=== PATIENT | male | born 1960 | race Caucasian/White ===

== ENCOUNTER 2018-08-05 21:45 | Emergency (ER) | payer BC, SELFPAY ==
[2018-08-05 21:45] VITALS: BP 145/83; PULSE 82; RESP 20; TEMP 36.7; O2SAT 95; BMI 28.6
--- NOTE | 2018-08-05 22:04 | RAD_ITS ---
STUDY: X-RAY - LEFT WRIST REASON FOR EXAM: Male, 57 years old. Fall. Difficulty moving fingers. TECHNIQUE: 3 view(s) of the wrist were obtained. COMPARISON: None. FINDINGS: Healed fracture of the distal radius status post ORIF. There is degenerative arthrosis of the radiocarpal articulation. There is degenerative arthrosis of the distal radioulnar articulation. There is focal density on the lateral aspect suggesting nondisplaced fracture of the triquetrum of uncertain age. Normal carpal articulations. There is mild degenerative arthrosis of the carpometacarpal articulation of the thumb. Normal second through fifth carpometacarpal articulations. Normal visualized metacarpal bones. The soft tissue structures are unremarkable. RAD/Wrist min 3 Views IMPRESSION: Healed distal radius fracture. Fracture of the triquetrum of uncertain age. Electronically Signed: Garcia Verde MD at 23:01 EDT , Service support ,
[2018-08-05] MEDS: HYDROcodone Bitartrate/Apap 5/325 Tablet PO (22:51)
--- NOTE | 2018-08-05 23:28 | ED.DCSUM_ITS ---
- ER Visit Summary Date of Service: 08/05/18 Chief Complaint: Wrist pain History of Present Illness: The patient is a 57 M with left wrist pain after mechanical fall earlier today. He fell on his outstretched hand. He complains of diffuse pain to his left wrist, more so at the base of his thumb. Worse with movement. He noted some swelling. He has a history of a distal radius fracture with plates and screws placed remotely. No other injuries or complaints. No numbness. Physical Examination: Patient is afebrile and vital signs are unremarkable. Head and neck are atraumatic. Left wrist is mildly and diffusely swollen. Skin is intact and normal in color. He has diffuse pain, but more so in the snuffbox region. Severe pain with light touch. Range of motion intact. Capillary refill intact. Good pulses. Compartments soft. Test Results: X-rays show postoperative changes and a triquetral fracture of an uncertain age. Emergency Department Course and Treatment: I reviewed the patient's x-rays. I do not believe that triquetral fracture is acute. He does not have significant pain in this area and his mechanism is not consistent with a triquetral fracture. I am concerned for a possible scaphoid fracture. He was placed in a thumb spica splint. Given a short course of pain medicine. Rest, ice, elevate. Follow-up with orthopedics. Treatment Plan: As above Disposition: Discharged Impression: 1. Left wrist pain This note was generated with [employer] dictation software. It may contain incorrect words, spelling, and punctuation that were not noted in review of the chart prior to signing ED Disposition - Plan for ED Patient: Chief Complaint: Upper Extremity Injury Referrals: Yury Lowe DO [Primary Care Provider] -
--- NOTE | 2018-08-05 23:28 | ED.DEP ---
ED Disposition - Plan for ED Patient: Chief Complaint: Upper Extremity Injury Instructions: ED Fx Wrist Navicular Poss Prescriptions: Hydrocodone Bitart/Apap 5-325 [[place] 5MG-325MG] 1 tab PO Q6H PRN PRN 2 Days #8 tab PRN Reason: Pain Referrals: Lucian Bose DO [STAFF PHYSICIAN] -
[2018-08-06] MEDS: HYDROcodone Bitartrate/Apap 5/325 Tablet PO (00:01)
[2018-08-06 00:02] VITALS: BP 145/83; RESP 18
== END 2018-08-06 00:04 | disposition home or self-care (01) ==
LOC: ED 22:24
PROVIDERS: Emergency Provider Emergency Medicine; Family Provider Student in an Organized Health Care Education/Training Program; PCP Student in an Organized Health Care Education/Training Program
DX: M25.532 Pain in left wrist (principal); Z87.891 Personal history of nicotine dependence
CPT/HCPCS: 73110; 99283

== ENCOUNTER 2023-09-07 12:29 | Observation (INO) | payer OTHER, SELFPAY ==
[2023-09-07] VITALS (13 sets, daily range): BP systolic 123–149; BP diastolic 81–98; PULSE 77–100; RESP 16–22; TEMP 36.7–36.9; O2SAT 88–99; BMI 30.2; BMI 29.1
--- NOTE | 2023-09-07 12:43 | RAD_ITS ---
INDICATION: Shortness of Breath EXAMINATION/TECHNIQUE: X-RAY - XR Chest 2 Views COMPARISON: Prior study dated: Right shoulder dated February 17, 2017 FINDINGS: LINES/DEVICES: None. LUNGS: No consolidation, edema or effusion. No pneumothorax. MEDIASTINUM AND CARDIOVASCULAR STRUCTURES: Cardiac silhouette not enlarged. Central airways and mediastinal contour are unremarkable. BONES AND SOFT TISSUES: Unremarkable. RAD/Chest PA and Lateral IMPRESSION: No radiographic evidence of acute cardiopulmonary disease. Electronically Signed: Jimena Dejesus MD at 13:40 EST ,
--- NOTE | 2023-09-07 12:43 | EKG12_ITS ---
Test Reason : SOB Blood Pressure : / mmHG Vent. Rate : 080 BPM Atrial Rate : 080 BPM P-R Int : 190 ms QRS Dur : 094 ms QT Int : 366 ms P-R-T Axes : 042 -15 019 degrees QTc Int : 422 ms Normal sinus rhythm Normal ECG Confirmed by SENAIT BECERRA MD ([id number]), order editor MARTY ADEN ([id number]) on 09/08/2023 10:56:33 AM Referred By: Confirmed By:SENAIT BECERRA MD
--- NOTE | 2023-09-07 12:44 | ED.VIS.DYS ---
HPI History of Present Illness Chief Complaint: Shortness of Breath Narrative Narrative: 63-year-old male, past medical history of COPD, presents with upper respiratory infection type symptoms that he feels has moved down into his chest. He states he has been sick for the last week with cough and runny nose. His fever is resolved. He now has a cough that is occasionally productive of sputum. He does not wear oxygen at home. However, he does use his 's albuterol nebulizer. He has been short of breath over the last few days and feels like his symptoms got worse on Friday, 2 days ago. He denies any chest pain or swelling of his legs. Has had a hard time breathing. He states he saw collections director wants in the past and usually sees his primary care physician who treats his COPD, but has not seen them recently. Additionally, he states he quit smoking 6 years ago. [facility] Home Medications lisinopril 10 mg tablet 10 mg PO DAILY 03/15/14 [History Last Taken Unknown] aspirin 81 mg tablet,delayed release (Adult Aspirin Regimen) 81 mg PO DAILY 09/07/23 [History Last Taken Unknown] atorvastatin 80 mg tablet 80 mg PO DAILY 09/07/23 [History Last Taken Unknown] tamsulosin 0.4 mg capsule 0.4 mg PO DAILY 09/07/23 [History Last Taken Unknown] Allergy/AdvReac Type Severity Reaction Status Date / Time No Known Allergies Allergy Verified 09/07/23 12:30 Social History Smoking Status: Former smoker ROS ROS ED ROS Narrative Constitutional: No fever, no chills. HEENT: No sore throat. No neck pain. No loss of vision. Rhinorrhea nasal congestion-resolving. Cardiovascular: No chest pain. No palpitations. No pedal edema. Respiratory: Positive cough, increasing shortness of breath, worse over the last few days, feels it into the chest. Abdominal: No abdominal pain. No nausea. No vomiting. Genitourinary: No dysuria. No hematuria. Musculoskeletal: No myalgias. No arthralgias. Neurologic: No headaches. No dizziness. No lightheadedness. Skin: No rash. No change in color. Psychiatric: No depression. No anxiety. EXAM Physical Exam Narrative Exam Narrative: Afebrile. Vital signs noted. HEENT: Normocephalic. Atraumatic. PERRL, EOMI. Neck soft and supple. No point tenderness or step off. Cardiovascular: Regular rate and rhythm. No murmurs, rubs, or gallops appreciated. Respiratory: No tachypnea. Lungs clear to auscultation bilaterally. Diminished breath sounds bilateral bases. Gastrointestinal: Abdomen soft, nontender, with normoactive bowel sounds. No rebound or guarding. Neurological: Awake. Alert. Nonfocal, nonlateralizing. Skin: No rash. Normal color. No pallor. Musculoskeletal: No pedal edema. Full range of motion extremities. Const Vital Signs: 09/07/23 12:31 09/07/23 13:02 09/07/23 13:03 Temperature 98.0 F Temperature Source Temporal Pulse Rate 86 77 Respiratory Rate 16 17 Respiratory Effort Respiratory Depth Respiratory Pattern Normal Blood Pressure 149/98 H Blood Pressure Mean 115 Pulse Ox 88 93 Oxygen Delivery Method Room Air Nasal Cannula Oxygen Flow Rate (L/min) 2 09/07/23 13:10 09/07/23 13:10 09/07/23 13:13 Temperature 98.0 F Temperature Source Temporal Pulse Rate 85 85 Respiratory Rate 22 H 22 H Respiratory Effort Short of Breath Accessory Muscle Use Pursed Lip Respiratory Depth Deep Respiratory Pattern Tachypnea Blood Pressure 146/81 H Blood Pressure Mean 102 Pulse Ox 91 91 Oxygen Delivery Method Nasal Cannula Nasal Cannula Nasal Cannula Oxygen Flow Rate (L/min) 2 2 2 09/07/23 14:00 09/07/23 14:54 Temperature Temperature Source Pulse Rate 82 78 Respiratory Rate 22 H 22 H Respiratory Effort Respiratory Depth Respiratory Pattern Blood Pressure 123/82 H 149/91 H Blood Pressure Mean 95 110 Pulse Ox 90 91 Oxygen Delivery Method Nasal Cannula Nasal Cannula Oxygen Flow Rate (L/min) 3 3 MDM MDM MDM Narrative Medical decision making narrative: HisUpon arrival, patient was 88% on room air. He does not wear oxygen at home. In the differential diagnosis is COPD exacerbation versus pneumonia versus pneumothorax. Lower on the differential is pulmonary embolism. However he is PERC negative. He will be swabbed for COVID and influenza and laboratory work obtained in the form of CBC and BMP. I do feel chest x-ray is indicated. He will be given a DuoNeb aerosolized treatment and Solu-Medrol 125 mg intravenously. EKG was obtained and interpreted by myself independently as normal sinus rhythm at 80 bpm without ectopy or acute ST changes. No STEMI. Laboratory work and he has slightly elevated white count of 12.8 which I think is nonspecific, hemoglobin normal 14.4, hematocrit 42.2, sodium is slightly low at 132 which I think is nonspecific, chloride normal at 102, BUN normal at 12 with creatinine 0.96. Glucose appropriately elevated at 103 with a normal anion gap of 5. Chest x-ray 1 view interpreted by myself independently shows no evidence of an acute process, no pneumothorax or consolidation. I do not feel antibiotics are indicated. I reviewed the radiology report which confirms my independent interpretation. Upon repeat examination, still has a pulse ox of 92% on 2 L nasal cannula. I turned off his oxygen momentarily and he had a dip down to 89% on room air. Given his hypoxia and COPD exacerbation, I do feel that he requires admission at this time. Patient states that he has not seen a collections director in quite some time, and that was years ago. He had pulmonary function test that were normal years ago. 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 I do feel that given his worsening COPD exacerbation that he should be admitted for further work-up. I discussed patient with the hospitalist, Dr. Mejia Molina. He would like him assigned to observation in the PCU. Patient is in stable condition. History & Record Review Discussion w/independent historian: Patient and Family Additional record(s) reviewed:: Prior ED visit and Prior labs Lab Data Attestation: I reviewed the patient's lab results. Labs: Laboratory Results - last 24 hr 09/07/23 13:18 WBC 12.8 H RBC 4.78 Hgb 14.4 Hct 42.2 MCV 88.3 MCH 30.1 MCHC 34.1 RDW Std Deviation 38.2 RDW Coeff of [place] 11.8 Plt Count 321 MPV 9.8 Immature Gran % (Auto) 0.500 Neut % (Auto) 72.0 H Lymph % (Auto) 14.3 L [place] % (Auto) 9.7 Eos % (Auto) 3.1 Baso % (Auto) 0.4 Absolute Neuts (auto) 9.2 H Absolute Lymphs (auto) 1.84 Nucleated RBC % 0 Sodium 132 L Potassium 3.9 Chloride 102 Carbon Dioxide 25.0 Anion Gap 5 BUN 12 Creatinine 0.96 Estim Creat Clear Calc 89.01 Est GFR (MDRD) Af Amer 102 Est GFR (MDRD) Non-Af 84 BUN/Creatinine Ratio 12.5 Glucose 103 Calcium 9.2 Radiography Diagnostic Testing: Clinical Impression(s) from Imaging Studies Chest X-Ray 09/07/23 12:43 IMPRESSION: No radiographic evidence of acute cardiopulmonary disease. Electronically Signed: Jimena Dejesus MD at 13:40 EST , Discharge Plan Dx/Rx/DC Orders Clinical Impression: Hypoxia, COPD exacerbation Disposition Disposition: Acute Care Hospital [facility]
[2023-09-07] MEDS: Ipratropium/Albuterol Sulfate 3 ML AMPUL.NEB INHALATION ×2 (13:00→18:58)
[2023-09-07] MEDS: MethylPREDNISolone 125 MG/2 ML Vial IV (13:09)
[2023-09-07 13:31] LABS: Absolute Lymphocyte Count 1.84 X10^3/uL (0.83-4.51); Absolute Neutrophil Count 9.2 X10^3/uL (2.0-7.7); Basophil# 0.05 X10^3/uL; Basophil% 0.4 % (0-1); Eosinophils% 3.1 % (0-5); Hematocrit 42.2 % (40-54); Hemoglobin 14.4 g/dL (13.0-16.5); Lymphocyte # 1.84 X10^3/ul (0.83-4.51); Lymphocyte % 14.3 % (19-41); Mean Corp Hgb Conc 34.1 g/dL (32-36); Mean Corpuscular Hgb 30.1 pg (27.0-32.0); Mean Corpuscular Volume 88.3 fL (80-94); Mean Platelet Vol. 9.8 fl (6.2-12.0); Monocyte# 1.24 X10^3/uL; Monocyte% 9.7 % (0-10); NRBC Flagged by Analyzer 0 % (0-5); Neutrophil # 9.24 X10^3/uL (2.7-7.7); Platelet Count 321 K/mm3 (150-450); RBC Distribution Width CV 11.8 % (11.6-14.6); RBC Distribution Width SD 38.2 fl (35.1-43.9); Red Blood Count 4.78 M/mm3 (4.6-6.2); White Blood Count 12.8 K/mm3 (4.4-11.0)
[2023-09-07 13:48] LABS: Anion Gap 5 (5-15); BUN 12 mg/dL (7-18); BUN/Creat Ratio 12.5 RATIO (10-20); Calcium,Total 9.2 mg/dL (8.5-10.1); Chloride 102 mmol/L (98-107); Creatinine, Serum 0.96 mg/dL (0.70-1.30); EST Glomerular Filtration Rate 84 mL/min (>60); Est Glom Filt Rate - Afr Amer 102 mL/min (>60); Estimated Creatinine Clearance 89.01 ml/min; Glucose 103 mg/dL (74-106); Potassium 3.9 mmol/L (3.5-5.1); Sodium Level 132 mmol/L (136-145)
--- NOTE | 2023-09-07 14:49 | PCM.HP.STD ---
HPI - General General Date of Admission: 09/07/23 Date of Service: 09/07/23 Chief Complaint: URI symptoms, worsening shortness of breath HPI Narrative GUSTAVO HILLAMN, is a 63 M who presented to [facility] ED on 09/07/2023 with URI symptoms and worsening shortness of breath. Patient seen at bedside in the ED, present. Patient was sitting at the edge of the bed, conversing normally, no acute distress. Patient was on 2 L nasal cannula with oxygen saturations in the low to mid 90s during my interview. He did not have any increased work of breathing noted. Patient states that his symptoms are mildly improved after receiving a breathing treatment in the ED. Patient states his URI symptoms started about 1 week ago, then moved to his chest about 2 days ago. He has had a fairly significant cough with greenish sputum production. Noticed that he was becoming more short of breath with exertion for last few days and came in for further evaluation. Patient reports having history of COPD secondary to his previous smoking history. Quit smoking about 6 years ago. States he had PFTs done around the time he quit smoking that showed that he had COPD. He uses an albuterol inhaler as needed at home, typically does not use this very often. No previous history of COPD exacerbations. Patient states he used the albuterol inhaler up to 2-3 times daily over the past few days with only mild relief of symptoms. Patient otherwise denies any fevers or chills, chest pain, abdominal pain or discomfort. No other acute concerns at this time. [facility] Home Medications lisinopril 10 mg tablet 10 mg PO DAILY 03/15/14 [History Last Taken Unknown] aspirin 81 mg tablet,delayed release (Adult Aspirin Regimen) 81 mg PO DAILY 09/07/23 [History Last Taken Unknown] atorvastatin 80 mg tablet 80 mg PO DAILY 09/07/23 [History Last Taken Unknown] tamsulosin 0.4 mg capsule 0.4 mg PO DAILY 09/07/23 [History Last Taken Unknown] Allergy/AdvReac Type Severity Reaction Status Date / Time No Known Allergies Allergy Verified 09/07/23 12:30 Social History Smoking Status: Former smoker ROS Constitutional Constitutional: Denies change in weight, chills, fatigue, fever(s) or weakness Eyes Eyes: Denies change in vision Cardiovascular Cardiovascular: Reports dyspnea on exertion; Denies chest pain, edema, lightheadedness, palpitations or rapid heart rate Respiratory/Chest Respiratory/Chest: Reports productive cough and shortness of breath with exertion; Denies shortness of breath at rest or wheezing Gastrointestinal Gastrointestinal: Denies abdominal pain, constipation, diarrhea, nausea or vomiting Genitourinary Genitourinary: Denies dysuria Musculoskeletal Musculoskeletal: Denies arthralgias or back pain Neurologic Neurologic: Denies dizziness, focal weakness, headache(s), numbness or paresthesias Vital Signs Vital Signs Vital Signs: 09/07/23 12:31 09/07/23 13:02 09/07/23 13:03 Temperature 98.0 F Temperature Source Temporal Pulse Rate 86 77 Respiratory Rate 16 17 Respiratory Effort Respiratory Depth Respiratory Pattern Normal Blood Pressure 149/98 H Blood Pressure Mean 115 Pulse Ox 88 93 Oxygen Delivery Method Room Air Nasal Cannula Oxygen Flow Rate (L/min) 2 09/07/23 13:10 09/07/23 13:10 09/07/23 13:13 Temperature 98.0 F Temperature Source Temporal Pulse Rate 85 85 Respiratory Rate 22 H 22 H Respiratory Effort Short of Breath Accessory Muscle Use Pursed Lip Respiratory Depth Deep Respiratory Pattern Tachypnea Blood Pressure 146/81 H Blood Pressure Mean 102 Pulse Ox 91 91 Oxygen Delivery Method Nasal Cannula Nasal Cannula Nasal Cannula Oxygen Flow Rate (L/min) 2 2 2 Weight Weight: 103.873 kg Body Mass Index (BMI) 30.2 Physical Exam Const alert, oriented x3, no apparent distress and average body habitus Constitutional Narrative: Pleasant elderly male, sitting comfortably at the edge of the bed, conversing normally, no acute distress. General Appearance: cooperative and comfortable HEENT normocephalic, head/scalp atraumatic, hearing grossly normal bilaterally, nasal mucous membranes and turbinates normal and moist oral mucous membranes Eyes PERRL, EOMs intact bilaterally and conjunctivae normal Neck full ROM, no lymphadenopathy and supple Lymph Lymphatic: no lymphadenopathy noted Chest inspection of chest normal Resp Resp Narrative: Moderately decreased breath sounds throughout bilaterally. No wheezing noted. No crackles noted. Satting in low to mid 90s on 2 L nasal cannula, no increased work of breathing noted. Cardio regular rate, regular rhythm, no murmurs and peripheral pulses 2+ throughout GI normal to inspection, nondistended, normoactive bowel sounds, soft to palpation, non-tender and non-distended Back/Spine normal ROM Extremity normal to inspection, full ROM and no pedal edema Skin no rashes or lesions noted Neuro moves all extremities and no focal motor deficits Speech: speech normal Psych mental status grossly normal Results Lab / Micro Data 09/07/23 13:18 09/07/23 13:18 Labs: Laboratory Results - last 24 hr 09/07/23 13:18: WBC 12.8 H, RBC 4.78, Hgb 14.4, Hct 42.2, MCV 88.3, MCH 30.1, MCHC 34.1, RDW Std Deviation 38.2, RDW Coeff of [place] 11.8, Plt Count 321, MPV 9.8, Immature Gran % (Auto) 0.500, Neut % (Auto) 72.0 H, Lymph % (Auto) 14.3 L, [place] % (Auto) 9.7, Eos % (Auto) 3.1, Baso % (Auto) 0.4, Absolute Neuts (auto) 9.2 H, Absolute Lymphs (auto) 1.84, Nucleated RBC % 0, Sodium 132 L, Potassium 3.9, Chloride 102, Carbon Dioxide 25.0, Anion Gap 5, BUN 12, Creatinine 0.96, Estim Creat Clear Calc 89.01, Est GFR (MDRD) Af Amer 102, Est GFR (MDRD) Non-Af 84, BUN/Creatinine Ratio 12.5, Glucose 103, Calcium 9.2 Micro: Microbiology 09/07/23 13:18 Nasal Secretion SARS-CoV-2 & FLU Antigen (Rapid) - Final Imagaing Radiology Impression Chest X-Ray 09/07/23 12:43 IMPRESSION: No radiographic evidence of acute cardiopulmonary disease. Electronically Signed: Jimena Dejesus MD at 13:40 EST , Assessment & Plan Assessment/Plan (1) Hypoxia: (2) COPD exacerbation: (3) Rhinovirus infection: PLAN: Plan Patient is a 63-year-old male who presented to [facility] ED on 09/07/2023 with URI symptoms and worsening shortness of breath. 1. Acute exacerbation of mild COPD with hypoxia secondary to rhinovirus infection Patient is a previous smoker, quit about 6 years ago. States he was formally diagnosed with COPD via PFTs at the [facility] around that time. No history of COPD exacerbations. Uses an albuterol inhaler as needed at home, typically does not need to use very often. Patient reports upper respiratory symptoms starting about 1 week ago that moved down into his chest about 2 days ago. He became short of breath with exertion and had mild wheezing with this. Had cough with greenish sputum production. Was using his albuterol inhaler up to 2-3 times per day with only mild relief. WBC count 12.8 on admit. Chest x-ray with no acute findings. Positive for rhinovirus in the ED. COVID and flu negative. S/p 1 dose of IV methylprednisolone, DuoNebs, ceftriaxone, azithromycin in the ED. After therapies, patient was still requiring 2 L nasal cannula at rest to maintain oxygen saturations in the low 90s, reportedly had desaturation to the mid 80s on exertion on room air. ? Admit under observation status to PCU. Will start prednisone 40 mg daily tomorrow, plan for 5-day course. Scheduled DuoNebs for now. Suspect patient is outside window for antiviral therapy, will hold on this for now. Symptomatic management. Wean supplemental oxygen as able. Suspect patient will need O2 ambulatory testing prior to discharge. 2. Mild hyponatremia Sodium 132 on admit. Suspect secondary to poor p.o. intake in setting of recent infection. ? Follow-up a.m. sodium level. Chronic medical conditions: ? Hypertension, hyperlipidemia: Continue home aspirin, statin, lisinopril. ? BPH: Continue home Flomax. DVT prophylaxis: Lovenox CODE STATUS: Full code, verified Expected disposition: Home, 1 to 2 days Total clinical time spent by myself addressing the patient's medical issues, reviewing all the data, and collaborating with patient's care team: 55 minutes. Charges/Coding Visit Charges Inpatient E&M: 18257 Init Hosp L2
[2023-09-07] MEDS: Ceftriaxone 1 GM/50 ML BAG IV (20:45)
[2023-09-07] MEDS: Atorvastatin Calcium 80 MG Tablet PO (20:48)
[2023-09-07] MEDS: Azithromycin 500 MG in Dextrose 5%-Water (250mL Bag) 250 ML 250 MG IV (21:32)
[2023-09-07] MEDS: Acetaminophen 325 MG Tablet 650 MG PO (23:18)
[2023-09-07] MEDS: guaiFENesin/Codeine 5 ML UDC PO (23:55)
[2023-09-07] MEDS: Docusate Sodium 100 MG Capsule PO (23:55)
[2023-09-08 03:20] VITALS: BP 112/86; PULSE 96; RESP 17; TEMP 36.6; O2SAT 94
[2023-09-08] MEDS: Acetaminophen 325 MG Tablet 650 MG PO (05:25)
[2023-09-08] MEDS: guaiFENesin/Codeine 5 ML UDC PO (05:25)
[2023-09-08 06:39] LABS: Hematocrit 41.7 % (40-54); Hemoglobin 13.8 g/dL (13.0-16.5); Mean Corp Hgb Conc 33.1 g/dL (32-36); Mean Corpuscular Hgb 30.1 pg (27.0-32.0); Mean Corpuscular Volume 90.8 fL (80-94); Mean Platelet Vol. 9.9 fl (6.2-12.0); Platelet Count 351 K/mm3 (150-450); RBC Distribution Width CV 11.9 % (11.6-14.6); Red Blood Count 4.59 M/mm3 (4.6-6.2); White Blood Count 10.5 K/mm3 (4.4-11.0)
[2023-09-08 07:16] LABS: Anion Gap 8 (5-15); BUN 19 mg/dL (7-18); BUN/Creat Ratio 19.1 RATIO (10-20); Calcium,Total 9.2 mg/dL (8.5-10.1); Chloride 104 mmol/L (98-107); EST Glomerular Filtration Rate 81 mL/min (>60); Est Glom Filt Rate - Afr Amer 98 mL/min (>60); Estimated Creatinine Clearance 82.99 ml/min; Glucose 152 mg/dL (74-106); Potassium 4.2 mmol/L (3.5-5.1); Sodium Level 135 mmol/L (136-145)
[2023-09-08] MEDS: Ipratropium/Albuterol Sulfate 3 ML AMPUL.NEB INHALATION (07:28)
[2023-09-08 07:29] VITALS: PULSE 89; RESP 16; O2SAT 94
[2023-09-08] MEDS: Aspirin E.C. 81 MG Tablet PO (08:19)
[2023-09-08] MEDS: Lisinopril 10 MG Tablet PO (08:19)
[2023-09-08] MEDS: predniSONE 20 MG Tablet 40 MG PO (08:19)
[2023-09-08] MEDS: Enoxaparin 40 MG/0.4 ML Syringe SC (08:19)
[2023-09-08] MEDS: Docusate Sodium 100 MG Capsule PO (08:19)
[2023-09-08] MEDS: Tamsulosin HCl 0.4 MG Capsule PO (08:19)
[2023-09-08 09:20] VITALS: BP 141/54; PULSE 81; RESP 18; TEMP 35.9; O2SAT 94
[2023-09-08 12:48] VITALS: O2SAT 91; O2SAT 94
--- NOTE | 2023-09-08 13:31 | PCM.DC.SUM ---
Providers Date of Admission: 09/07/23 Primary Care Physician: Dr. Yury Lowe, Reason For Visit: ACUTE EXACERBATION OF COPD WITH HYPOXIA Diagnosis Discharge Diagnosis (1) Hypoxia: Status: Acute Code(s): R09.02 - Hypoxemia (2) COPD exacerbation: Status: Chronic Code(s): J44.1 - Chronic obstructive pulmonary disease with (acute) exacerbation (3) Rhinovirus infection: Status: Acute Code(s): B34.8 - Other viral infections of unspecified site Medications at Discharge Home Medications lisinopril 10 mg tablet 10 mg PO DAILY blood pressure 03/15/14 aspirin 81 mg tablet,delayed release (Adult Aspirin Regimen) 81 mg PO DAILY heart health 09/07/23 atorvastatin 80 mg tablet 80 mg PO DAILY cholesterol 09/07/23 tamsulosin 0.4 mg capsule 0.4 mg PO DAILY prostate 09/07/23 codeine 10 mg-guaifenesin 100 mg/5 mL oral liquid (Guaifenesin AC) 5 ml PO Q6H PRN cough #1,000 mL 09/08/23 ipratropium 0.5 mg-albuterol 3 mg (2.5 mg base)/3 mL nebulization soln 3 ml inhalation Q4HWA.RT PRN shortness of breath or wheezing #180 mL 09/08/23 prednisone 10 mg tablet 10 mg PO DAILY #30 tabs 09/08/23 Hospital Course Operations None Procedures EKG and - (Chest x-ray) Summary of Care Provided Minutes Spent on Discharge: 30 Hospital Course: Mr Parker is a 63-year-old white male with a history of tobacco abuse and COPD who presented to the emergency department at which prehospital on 09[facility]07[facility]2023 with upper respiratory infection symptoms and worsening shortness of breath. Upon presentation he was apparently noted to be hypoxic and placed on 2 L nasal cannula with oxygen saturations improving into the mid 90s. He was given breathing treatments and steroids in emergency department. Patient reported that his symptoms started about a week prior to presentation and then moved down into his chest about 2 days prior to presentation. He complained of a fairly significant cough with greenish sputum and noted that he was becoming progressively more short of breath with exertion over the past few days prior to presentation. He does not wear supplemental oxygen at baseline and quit smoking 6 years prior to presentation. He uses an albuterol at home as needed and typically does not require utilization. He also has a nebulizer that he uses periodically as well. Other than his mild hypoxia his vital signs were unremarkable. On presentation he had a mild leukocytosis at 12.8 which has resolved by the time of discharge. He also had a mild left shift. Chemistry panel was overall unremarkable other than mild hyponatremia with a sodium of 132 which improved on the day of discharge. He was admitted to the medical floor and placed on oral steroids, aggressive pulmonary toilet, cough medicine, and started on incentive spirometry and Acapella. At the time of my evaluation on 09/08/2023. He was feeling much better. Oxygen saturations were 94% on room air and we did obtain an ambulatory pulse ox and he was able to remain on room air with oxygen saturations dropping no lower than 91% with exertion. Sputum culture was obtained on admission and shows no growth at this time. 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 I encouraged him to hold off on going back to his job until probably next Friday unless he feels improved in a more expedited time. He feels that he is able to go home however we did discuss that if his symptoms worsen all he needs to return to the emergency department he voiced understanding. I did send him home with DuoNebs solution for his aerosol machine, a prednisone taper, and cough syrup. Have asked him to follow-up with his primary care physician within the next 1 to 2 weeks. Patient was discharged home in stable condition on 09/08/2023. Discharge diagnoses: Hypoxia-resolved Acute exacerbation of COPD Acute rhinovirus infection COPD Hyperlipidemia Hypertension BPH Weight / BMI Weight Weight: 97.5 kg Body Mass Index (BMI) 29.1 ABG / Lab / Microbiology Data 09/08/23 05:52 09/08/23 05:52 Laboratory: Laboratory Results - last 24 hr 09/07/23 13:18: WBC 12.8 H, RBC 4.78, Hgb 14.4, Hct 42.2, MCV 88.3, MCH 30.1, MCHC 34.1, RDW Std Deviation 38.2, RDW Coeff of [place] 11.8, Plt Count 321, MPV 9.8, Immature Gran % (Auto) 0.500, Neut % (Auto) 72.0 H, Lymph % (Auto) 14.3 L, [place] % (Auto) 9.7, Eos % (Auto) 3.1, Baso % (Auto) 0.4, Absolute Neuts (auto) 9.2 H, Absolute Lymphs (auto) 1.84, Nucleated RBC % 0, Sodium 132 L, Potassium 3.9, Chloride 102, Carbon Dioxide 25.0, Anion Gap 5, BUN 12, Creatinine 0.96, Estim Creat Clear Calc 89.01, Est GFR (MDRD) Af Amer 102, Est GFR (MDRD) Non-Af 84, BUN/Creatinine Ratio 12.5, Glucose 103, Calcium 9.2 09/08/23 05:52: WBC 10.5, RBC 4.59 L, Hgb 13.8, Hct 41.7, MCV 90.8, MCH 30.1, MCHC 33.1, RDW Std Deviation 39.0, RDW Coeff of [place] 11.9, Plt Count 351, MPV 9.9, Sodium 135 L, Potassium 4.2, Chloride 104, Carbon Dioxide 23.0, Anion Gap 8, BUN 19 H, Creatinine 1.00, Estim Creat Clear Calc 82.99, Est GFR (MDRD) Af Amer 98, Est GFR (MDRD) Non-Af 81, BUN/Creatinine Ratio 19.1, Glucose 152 H, Calcium 9.2 Microbiology: Microbiology 09/07/23 17:52 Sputum, Expectorated/Coughed Gram Stain - Final 09/07/23 17:52 Sputum, Expectorated/Coughed Respiratory Culture - Preliminary Appears to be normal respiratory carolann. Further studies to follow. 09/07/23 17:42 Mucosa - Nose Respiratory Panel (PCR) - Final Rhinovirus 09/07/23 13:18 Nasal Secretion SARS-CoV-2 & FLU Antigen (Rapid) - Final Radiography Diagnostic Testing: Radiology Impression Chest X-Ray 09/07/23 12:43 IMPRESSION: No radiographic evidence of acute cardiopulmonary disease. Electronically Signed: Jimena Dejesus MD at 13:40 EST , D/C Instructions Discharge Diet: Low fat / Low cholesterol Discharge Activity: Return to Normal Activity Return to work on: 09/15/23 Meaningful Use Info Meaningful Use Diagnoses (Choose all that apply): None applicable Discharge Plan Admission Admit Date/Time: 09/07/23 15:47 Primary Reason for Your Visit: Shortness of breath Attending Provider: Kimberly Bains Primary Care Provider: Yury Lowe Consulting Providers: Dereck Molina Instructions Additional Instructions / Restrictions: 1. You have been found to have a rhinovirus infection that led to an acute exacerbation of COPD. Please complete steroid taper as directed 2. Return to the emergency department if your symptoms worsen Discharge Orders/Prescriptions Prescriptions: New ipratropium-albuterol 0.5 mg-3 mg(2.5 mg base)/3 mL Solution For Nebulization 3 ml inhalation Q4HWA.RT PRN (Reason: shortness of breath or wheezing) Qty: 180 1RF prednisone 10 mg tablet 10 mg PO DAILY Qty: 30 0RF Rx Instructions: 4 tablets x 3 days, 3 tablets x 3 days, 2 tablets x 3 days, 1 tablet x 3 days codeine-guaifenesin [Guaifenesin AC] 10-100 mg/5 mL liquid 5 ml PO Q6H PRN (Reason: cough) Qty: 1000 0RF Continued lisinopril 10 MG tablet 10 mg PO DAILY atorvastatin 80 mg tablet 80 mg PO DAILY Patient Comments: take 1 tablet by mouth at bedtime tamsulosin 0.4 mg capsule 0.4 mg PO DAILY Patient Comments: take 1 capsule by mouth at bedtime aspirin [Adult Aspirin Regimen] 81 mg tablet,delayed release (DR/EC) 81 mg PO DAILY Referrals / Follow Up: Yury Lowe DO [Primary Care Provider] - Within 2 Weeks Disposition Disposition (needs filled in before D/C Order can be placed): Home, Self Care Charges/Coding Visit Charges Inpatient E&M: 24112 Disch Hosp
--- NOTE | 2023-09-08 13:56 | CASEMGMT ---
Patient has order for discharge. RN CM in to discuss needs at discharge. Patient states he has nebulizer machine at home. Patient denied needs at discharge. Patient had no further questions or concerns.
--- NOTE | 2023-09-08 14:12 | PHA.DC.MC.R ---
Pharmacy [facility] has performed discharge medication reconciliation and counseling for this patient. The patient's discharge medication list was reviewed for discrepancies and discrepancies were resolved. The patient was counseled on the following discharge medications and changes in medications for homegoing were reviewed. The Reason for Use, instructions for use, and potential side effects were reviewed for all new medications. The patient's questions regarding all of their medications were answered. 1. Ipratropium/albuterol 3 mL PO Q4H PRN shortness of breath or wheezing 2. Guaifenesin/codeine liquid 5 mL PO PRN cough 3. Prednisone 10 mg tablet taper The patient was able to verbally demonstrate an understanding of their discharge medications. Medications at Discharge Home Medications lisinopril 10 mg tablet 10 mg PO DAILY blood pressure 03/15/14 aspirin 81 mg tablet,delayed release (Adult Aspirin Regimen) 81 mg PO DAILY heart health 09/07/23 atorvastatin 80 mg tablet 80 mg PO DAILY cholesterol 09/07/23 tamsulosin 0.4 mg capsule 0.4 mg PO DAILY prostate 09/07/23 codeine 10 mg-guaifenesin 100 mg/5 mL oral liquid (Guaifenesin AC) 5 ml PO Q6H PRN cough #1,000 mL 09/08/23 ipratropium 0.5 mg-albuterol 3 mg (2.5 mg base)/3 mL nebulization soln 3 ml inhalation Q4HWA.RT PRN shortness of breath or wheezing #180 mL 09/08/23 prednisone 10 mg tablet 10 mg PO DAILY #30 tabs 09/08/23
[2023-09-08 15:21] VITALS: BP 127/71; PULSE 90; RESP 18; TEMP 36.2; O2SAT 95
== END 2023-09-08 16:07 | disposition home or self-care (01) ==
LOC: ED 14:42 → PCU 16:37
PROVIDERS: Admitting Provider Hospitalist; Emergency Provider Emergency Medicine; PCP Student in an Organized Health Care Education/Training Program; Visit Provider Internal Medicine
DX: J44.1 Chronic obstructive pulmonary disease with (acute) exacerbation (principal); N40.0 Benign prostatic hyperplasia without lower urinary tract symptoms; I10 Essential (primary) hypertension; B34.8 Other viral infections of unspecified site; Z87.891 Personal history of nicotine dependence; E87.1 Hypo-osmolality and hyponatremia; E78.5 Hyperlipidemia, unspecified; Z79.899 Other long term (current) drug therapy; Z79.82 Long term (current) use of aspirin
CPT/HCPCS: 36415; 71046; 80048; 85025; 85027; 87070; 87205; 87428; 87633; 93005; 94640; 94668; 96365; 96367; 96372; 96375; 99221; 99285; 99406; A4216; G0378

== ENCOUNTER → 2023-10-29 | Outpatient (CLI) | payer OTHER, SELFPAY ==
--- NOTE | 2023-10-29 13:43 | CT_ITS ---
STUDY: CT RIGHT SHOULDER REASON FOR EXAM: Male, 63 years old. Pain in right shoulder - surgical planning. RADIATION DOSAGE (If Supplied By Facility): CTDIvol = ( 30.27 ) mGy, DLP = ( 816.82 ) mGycm TECHNIQUE: The patient was scanned in a multi detector CT scanner. High resolution transaxial imaging was performed without the administration of intravenous contrast material. Sagittal and coronal images were reconstructed. Individualized dose optimization techniques were used for this CT. COMPARISON: None. FINDINGS: There is glenohumeral arthrosis with mild marginal osteophyte formation. There is superior subluxation of the humeral head with respect to the glenoid with severe narrowing of the acromiohumeral space. There is a moderate glenohumeral joint effusion. Intact glenoid rim, neck and visualized scapula. Intact humeral head, neck and tuberosities. Normal coracoid process. Normal visualized lateral clavicle. There is hypertrophic acromioclavicular arthrosis. There is a Type II morphology (curved), with a neutral orientation. Normal visualized muscles and soft tissue structures. CT/Extremity Upper without Contra IMPRESSION: Glenohumeral arthrosis. Superior subluxation of the humeral head with severe narrowing of the acromiohumeral space. Moderate glenohumeral joint effusion. Hypertrophic acromioclavicular arthrosis. Electronically Signed: Shin Bains MD at 15:29 EST ,
== END | disposition home or self-care (01) ==
PROVIDERS: PCP Student in an Organized Health Care Education/Training Program; Referring Provider Student in an Organized Health Care Education/Training Program; Visit Provider Student in an Organized Health Care Education/Training Program
DX: M19.111 Post-traumatic osteoarthritis, right shoulder (principal); M25.511 Pain in right shoulder
CPT/HCPCS: 73200

== ENCOUNTER 2023-11-20 08:04 | Day surgery (SDC) | payer OTHER, SELFPAY ==
[2023-10-29 14:19] LABS: Absolute Lymphocyte Count 3.55 X10^3/uL (0.83-4.51); Absolute Neutrophil Count 5.2 X10^3/uL (2.0-7.7); Basophil# 0.06 X10^3/uL; Basophil% 0.6 % (0-1); Eosinophil# 0.15 X10^3/uL; Eosinophils% 1.5 % (0-5); Hemoglobin 14.5 g/dL (13.0-16.5); Lymphocyte # 3.55 X10^3/ul (0.83-4.51); Lymphocyte % 35.5 % (19-41); Mean Corp Hgb Conc 33.7 g/dL (32-36); Mean Corpuscular Hgb 30.5 pg (27.0-32.0); Mean Corpuscular Volume 90.3 fL (80-94); Mean Platelet Vol. 10.4 fl (6.2-12.0); Monocyte# 0.97 X10^3/uL; Monocyte% 9.7 % (0-10); NRBC Flagged by Analyzer 0 % (0-5); Neutrophil # 5.23 X10^3/uL (2.7-7.7); Neutrophil % 52.4 % (47-70); Platelet Count 335 K/mm3 (150-450); RBC Distribution Width CV 11.9 % (11.6-14.6); Red Blood Count 4.76 M/mm3 (4.6-6.2)
[2023-10-29 15:04] LABS: Albumin, Serum 3.9 g/dL (3.2-5.0); Magnesium 2.6 mg/dL (1.6-2.6)
[2023-11-20] VITALS (8 sets, daily range): BP systolic 104–126; BP diastolic 61–88; PULSE 58–71; RESP 16–18; TEMP 35.8–36.7; O2SAT 91–100; BMI 29.8
--- OUTSIDE RECORDS SUMMARY | 2023-11-20 08:13 | XMS RPT_ITS | CCD ---
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 Name Role Phone Yury Allred DO Primary Care Provider YURY ALLRED Primary Care Unavailable ALISSA CROUCH Attending Unavailable ALLRED, YURY L Primary Care Unavailable LIZ DE LA ROSA Attending Unavailable ALLRED, YURY Piyush Primary Care Unavailable LIZ DE LA ROSA Referring Unavailable LUIS MARQUEZ Attending Unavailable ALLRED, YURY L Primary Care Unavailable BRIONNA MARQUEZOD Referring Unavailable ALLRED, YURY L Primary Care Unavailable CHARLOTTE HOOPER Referring Unavailable ALLRED, YURY L Primary Care Unavailable WATSON, JETTAB Attending Unavailable CHARLOTTE HOOPER Referring Unavailable ALLRED, YURY L Primary Care Unavailable OWEN, MELANIA Referring Unavailable CHARLOTTE HOOPER Attending Unavailable LAIQ, ZENAB Referring Unavailable ALLRED, YURY L Primary Care Unavailable ALLRED, YURY L Referring Unavailable ALLRED, YURY L Primary Care Unavailable ALLRED, YURY L Primary Care Unavailable OWEN, MELANIA Referring Unavailable ALLRED, YURY L Primary Care Unavailable OWEN, MELANIA Referring Unavailable MARIANELA MORROW Attending Unavailable ALLRED, YURY L Primary Care Unavailable ALLRED, YURY L Attending Unavailable ALLRED, YURY L Primary Care Unavailable ALLRED, YURY L Primary Care Unavailable OWEN, MELANIA Referring Unavailable ALLRED, YURY L Primary Care Unavailable NILS SAL Referring Unavailable ALLRED, YURY L Primary Care Unavailable NILS SAL Attending Unavailable ALLRED, YURY L Primary Care Unavailable NILS SAL Referring Unavailable ALLRED, YURY L Primary Care Unavailable TESTRAKE, NILS Referring Unavailable YURY ALLRED Primary Care Unavailable LAIDandy ZENAB Referring Unavailable YURY ALLRED Primary Care Unavailable YURY ALLRED Primary Care Unavailable MELANIA OWEN Attending Unavailable YURY ALLRED Primary Care Unavailable MELANIA OWEN Referring Unavailable Allergies Allergy Classification Reported Allergen(s) Allergy Type Date of Onset Reaction(s) Facility (4 sources) Pollen; Translations: [POLLEN EXTRACTS] Drug Allergy 10-07-2023 Itching [facility] Medications Current Medications Medication Drug Class(es) Dates Sig (Normalized) Sig (Original) doxycycline hyclate 100 mg oral tablet (4 sources) Tetracycline-cla ss Drug Start: 09-10-2023 End: 09-20-2023 take 1 tablet by mouth twice daily doxycycline (VIBRA-TABS) 100 mg tablet Indications: Wheezing , COPD with exacerbation (HCC) , Hypoxia Take 1 tablet by mouth two times a day for 10 days. 20 tablet 0 09/10/2023 09/20/2023 Active Completed/Discontinued Medications Medication Drug Class(es) Dates Sig (Normalized) Sig (Original) 8 hr acetaminophen 650 mg extended release oral tablet (3 sources) take 1 tablet by mouth every eight hours as needed acetaminophen (TYLENOL ARTHRITIS PAIN) 650 mg CR tablet Take 650 mg by mouth every 8 hours as needed for pain. 0 Active Problems Active Problems Problem Classification Problem Date Documented Da te Episodic/Chronic Asthma (5 sources) Uncomplicated mild persistent asthma; Translations: [Mild persistent asthma, uncomplicated] Onset: 09-22-2023 09-22-2023 Chronic Chronic obstructive pulmonary disease and bronchiectasis (4 sources) Acute exacerbation of chronic obstructive airways disease; Translations: [Chronic obstructive pulmonary disease with (acute) exacerbation] Onset: 01-29-2023 Chronic Coronary atherosclerosis and other heart disease (5 sources) Calcification of coronary artery; Translations: [Atherosclerotic heart disease of [place] coronary artery without angina pectoris] Onset: 09-22-2023 09-22-2023 Chronic Diabetes mellitus without complication (1 source) Prediabetes; Translations: [Prediabetes] Onset: 10-07-2023 Episodic Disorders of lipid metabolism (20 sources) Pure hypercholesterolemia ; Translations: [Pure hypercholesterolemia , unspecified] Onset: 08-22-2015 08-22-2015 Chronic Essential hypertension (20 sources) Hypertensive disorder; Translations: [Essential (primary) hypertension] Onset: 05-31-2014 05-31-2014 Chronic Hyperplasia of prostate (2 sources) Urinary frequency due to benign prostatic hypertrophy; Translations: [Benign prostatic hyperplasia with lower urinary tract symptoms] Chronic Immunizations and screening for infectious disease (2 sources) Viral screening status; Translations: [Encounter for screening for other viral diseases] Episodic Other connective tissue disease (1 source) Triggering of digit; Translations: [Trigger finger, left middle finger] Episodic Other connective tissue disease (1 source) Pain in right foot; Translations: [Pain in right foot] 07-07-2023 Episodic Other injuries and conditions due to external causes (1 source) Injury of ankle; Translations: [Unspecified injury of unspecified ankle, sequela] 07-07-2023 Episodic Other lower respiratory disease (6 sources) Wheezing; Translations: [Wheezing] Episodic Other lower respiratory disease (1 source) Dyspnea; Translations: [Shortness of breath] 09-07-2023 Episodic Other lower respiratory disease (2 sources) Hypoxia; Translations: [Hypoxemia] 09-10-2023 Episodic Other lower respiratory disease (1 source) Shortness of breath; Translations: [SOB (shortness of breath)] Onset: 09-22-2023 Episodic Other lower respiratory disease (1 source) Wheezing; Translations: [Wheezing] Onset: 09-11-2023 Episodic Other lower respiratory disease (1 source) Hypoxemia; Translations: [Hypoxia] Onset: 09-11-2023 Episodic Other nervous system disorders (1 source) Neuropathy; Translations: [Polyneuropathy, unspecified] 08-04-2023 Chronic Other nervous system disorders (1 source) Polyneuropathy, unspecified; Translations: [Neuropathy] Onset: 08-04-2023 Chronic Other non-traumatic joint disorders (2 sources) Hip pain; Translations: [Pain in unspecified hip] Episodic Other nutritional; endocrine; and metabolic disorders (1 source) History of clinical finding in subject; Translations: [Personal history of other endocrine, nutritional and metabolic disease] Episodic Other screening for suspected conditions (not mental disorders or infectious disease) (6 sources) Patient encounter status; Translations: [Encounter for screening for malignant neoplasm of colon] Onset: 11-10-2023 Episodic Other upper respiratory disease (6 sources) Seasonal allergy; Translations: [Other seasonal allergic rhinitis] Chronic Other upper respiratory infections (2 sources) Chronic sinusitis; Translations: [Chronic sinusitis, unspecified] Onset: 01-29-2023 Chronic Screening and history of mental health and substance abuse codes (1 source) Former light tobacco smoker; Translations: [Personal history of nicotine dependence] 11-18-2023 Episodic Substance-related disorders (20 sources) Tobacco user; Translations: [Nicotine dependence, unspecified, uncomplicated] Onset: 08-07-2015 08-07-2015 Chronic Past or Other Problems Problem Classification Problem Date Documented Da te Episodic/Chronic Chronic obstructive pulmonary disease and bronchiectasis (5 sources) Bronchitis; Translations: [Bronchitis, not specified as acute or chronic] Onset: 01-29-2023 Episodic Disorders of teeth and jaw (1 source) Jaw pain; Translations: [Jaw pain] Onset: 02-13-2023 Episodic Other connective tissue disease (1 source) Pain in right foot; Translations: [Pain in right foot] Onset: 07-07-2023 Episodic Other connective tissue disease (1 source) Neuralgia and neuritis, unspecified; Translations: [Nerve pain] Onset: 02-13-2023 Episodic Other injuries and conditions due to external causes (1 source) Unspecified injury of unspecified ankle, sequela; Translations: [Ankle injury, sequela] Onset: 07-07-2023 Episodic Other non-traumatic joint disorders (20 sources) Multiple joint pain; Translations: [Pain in unspecified joint] Onset: 08-07-2015 08-07-2015 Episodic Residual codes; unclassified (20 sources) Tobacco user; Translations: [Tobacco use] Onset: 05-31-2014 05-31-2014 Episodic Spondylosis; intervertebral disc disorders; other back problems (3 sources) Acute low back pain; Translations: [Acute right-sided low back pain without sciatica] Onset: 02-21-2023 Episodic Results Test Name Value Interpretation Reference Range Facil ity Vital Signs Date Time Vital Sign Value Performing Clinician Muriel valdivia 11-18-2023 13:47-0500 Body height 182.9 cm Marianela Morrow PA-C Work Phone: [facility] 11-18-2023 13:47-0500 Body weight 103.51 kg Marianela Morrow PA-C Work Phone: [facility] 11-18-2023 13:47-0500 Diastolic blood pressure 70 mm[Hg] Marianela Shyann PA-C Work Phone: [facility] 11-18-2023 13:47-0500 Heart rate 82 /min Marianela Shyann PA-C Work Phone: [facility] 11-18-2023 13:47-0500 Respiratory rate 14 /min Marianela Shyann PA-C Work Phone: [facility] 11-18-2023 13:47-0500 SaO2% (BldA) [Mass fraction] 93 % Marianela Shyann PA-C Work Phone: [facility] 11-18-2023 13:47-0500 Systolic blood pressure 114 mm[Hg] Marianela Shyann PA-C Work Phone: [facility] 09-10-2023 12:13-0500 Body temperature 98.91 [degF] Melania Owen NUCLEAR REACTOR OPERATOR.ANIME ARTIST Work Phone: [facility] 09-10-2023 12:13-0500 Body weight 98.79 kg Melania Owen NUCLEAR REACTOR OPERATOR.ANIME ARTIST Work Phone: [facility] 09-10-2023 12:13-0500 Diastolic blood pressure 70 mm[Hg] Melania Owen NUCLEAR REACTOR OPERATOR.ANIME ARTIST Work Phone: [facility] 09-10-2023 12:13-0500 Heart rate 76 /min Melania Owen NUCLEAR REACTOR OPERATOR.ANIME ARTIST Work Phone: [facility] 09-10-2023 12:13-0500 SaO2% (BldA) [Mass fraction] 90 % Melania Owen NUCLEAR REACTOR OPERATOR.ANIME ARTIST Work Phone: [facility] 09-10-2023 12:13-0500 Systolic blood pressure 122 mm[Hg] Melania Owen NUCLEAR REACTOR OPERATOR.ANIME ARTIST Work Phone: [facility] 09-07-2023 12:16-0500 SaO2% (BldA) [Mass fraction] 91 % Modesto Frye NUCLEAR REACTOR OPERATOR.ANIME ARTIST Work Phone: [facility] 01-29-2023 15:59-0400 Diastolic blood pressure 92 mm[Hg] Alissa Haagen NUCLEAR REACTOR OPERATOR.ANIME ARTIST Work Phone: [facility] 01-29-2023 15:59-0400 Heart rate 73 /min Alissa Haagen NUCLEAR REACTOR OPERATOR.ANIME ARTIST Work Phone: [facility] 01-29-2023 15:59-0400 Respiratory rate 18 /min Alissa Haagen NUCLEAR REACTOR OPERATOR.ANIME ARTIST Work Phone: [facility] 01-29-2023 15:59-0400 SaO2% (BldA) [Mass fraction] 94 % Alissa Haagen NUCLEAR REACTOR OPERATOR.ANIME ARTIST Work Phone: [facility] 01-29-2023 15:59-0400 Systolic blood pressure 132 mm[Hg] Alissa Haagen NUCLEAR REACTOR OPERATOR.ANIME ARTIST Work Phone: [facility] 08-01-2022 13:27-0400 Diastolic blood pressure 73 mm[Hg] Tony Mccrary MD Work Phone: [facility] 08-01-2022 13:27-0400 Heart rate 78 /min Tony Mccrary MD Work Phone: [facility] 08-01-2022 13:27-0400 Respiratory rate 16 /min Tony Mccrary MD Work Phone: [facility] 08-01-2022 13:27-0400 SaO2% (BldA) [Mass fraction] 96 % Tony Mccrary MD Work Phone: [facility] 08-01-2022 13:27-0400 Systolic blood pressure 105 mm[Hg] Tony Mccrary MD Work Phone: [facility] 08-01-2022 12:00-0400 Body temperature 98.01 [degF] Tony Mccrary MD Work Phone: [facility] 07-08-2022 08:54-0400 Body height 181.4 cm Liz De La Rosa NUCLEAR REACTOR OPERATOR.ANIME ARTIST Work Phone: [facility] 07-08-2022 08:54-0400 Body weight 98.07 kg Liz Estrella NUCLEAR REACTOR OPERATOR.ANIME ARTIST Work Phone: [facility] 07-08-2022 08:54-0400 Diastolic blood pressure 86 mm[Hg] Liz Estrella NUCLEAR REACTOR OPERATOR.ANIME ARTIST Work Phone: [facility] 07-08-2022 08:54-0400 Heart rate 71 /min Liz Estrella NUCLEAR REACTOR OPERATOR.ANIME ARTIST Work Phone: [facility] 07-08-2022 08:54-0400 Respiratory rate 16 /min Liz Estrella NUCLEAR REACTOR OPERATOR.ANIME ARTIST Work Phone: [facility] 07-08-2022 08:54-0400 SaO2% (BldA) [Mass fraction] 97 % Liz Perazaman NUCLEAR REACTOR OPERATOR.ANIME ARTIST Work Phone: [facility] 07-08-2022 08:54-0400 Systolic blood pressure 132 mm[Hg] Liz Estrella NUCLEAR REACTOR OPERATOR.ANIME ARTIST Work Phone: [facility] Encounters Encounter Date Encounter Type Care Provider Facility Start: 11-18-2023 End: 11-18-2023 ambulatory MARIANELA MORROW Facility:[facility] Start: 11-18-2023 End: 11-18-2023 Office outpatient visit 15 minutes Marianela Morrow PA-C Work Phone: Pulmonary Medicine Procedures Date Procedure Procedure Detail Performing Clinician Start: 11-10-2023 Lipid 1996 panel - S robin or Plasma Yury Allred DO Work Phone: Start: 09-11-2023 Ct thorax w/o contra st material Melaniajoselin Owen NUCLEAR REACTOR OPERATOR.ANIME ARTIST Work Phone: Start: 08-04-2023 Nerve conduction deepika dies 5-6 studies Nils Sal Work Phone: Start: 07-07-2023 End: 07-07-2023 Radex foot complete minimum 3 views Nils Sal Work Phone: Start: 08-01-2022 Colonoscopy flx dx w /collj spec when pfrmd Liz De La Rosa NUCLEAR REACTOR OPERATOR.ANIME ARTIST Work Phone: Start: 08-01-2022 Colonoscopy Yury dow DO Work Phone: Start: 07-08-2022 Lipid 1996 panel - S robin or Plasma Yury Allred DO Work Phone: Start: 11-03-2020 Adult depression scr eening assessment Yury Allred DO Work Phone: Start: 07-20-2011 Colonoscopy Yury dow DO Work Phone: Plan of Treatment Date Care Activity Detail Author Start: 08-01-2032 Colonoscopy COLONOSCOPY [facility] Start: 08-01-2032 COLORECTAL CANCER SCREENING COLORECTAL CANCER SCREENING [facility] Start: 08-01-2032 Screening for malign ant neoplasm of colon [facility] Start: 11-10-2028 Lipid panel Lipid Screening [facility] Start: 11-10-2028 Prostate specific an tigen measurement Prostate Cancer Screening Discussion [facility] Start: 07-08-2027 Lipid 1996 panel - S robin or Plasma Lipid Screening [facility] Start: 07-08-2027 Lipid panel Lipid Screening [facility] Start: 07-08-2027 LIPID SCREEN LIPID SCREEN [facility] Start: 07-08-2027 PROSTATE CANCER SCRE ENING DISCUSSION PROSTATE CANCER SCREENING DISCUSSION [facility] Start: 07-08-2027 Prostate specific an tigen measurement Prostate Cancer Screening Discussion [facility] Start: 03-19-2027 LIPID SCREEN LIPID SCREEN [facility] Start: 11-10-2026 Diabetes Screening Diabetes Screenin [facility] Start: 01-01-2026 LIPID SCREEN LIPID SCREEN [facility] Start: 01-01-2026 PROSTATE CANCER SCRE ENING DISCUSSION PROSTATE CANCER SCREENING DISCUSSION [facility] Start: 07-08-2025 DIABETES SCREEN DIABETES SCREEN [facility] Start: 07-08-2025 Diabetes Screening Diabetes Screenin g [facility] Start: 03-19-2025 DIABETES SCREEN DIABETES SCREEN [facility] Start: 11-18-2024 BP Controlled (<130/80) BP Controlle d (<130/80) [facility] Start: 11-10-2024 Hepatitis B surface antibody level LDL Cholesterol [facility] Start: 10-22-2024 Annual PCP Team Advertising Sales Consultant noemi Disease Visit Annual PCP Team Chronic Disease Visit [facility] Start: 09-22-2024 BP Controlled (<130/80) BP Controlle d (<130/80) [facility] Start: 09-10-2024 Annual PCP Team Advertising Sales Consultant noemi Disease Visit Annual PCP Team Chronic Disease Visit [facility] Start: 09-10-2024 BP Controlled (<130/80) BP Controlle d (<130/80) [facility] Start: 09-10-2024 Covid-19 Vaccine ( season) Covid-19 Vaccine () [facility] Immunizations Immunization Date Immunization Notes Care Provider Paula covarrubias 07-10-2020 Influenza, injectabl e, Madin Mer Canine Kidney, preservative free, quadrivalent Yury Allred DO Work Phone: [facility] 07-10-2020 influenza, seasonal, injectable Yury Allred DO Work Phone: [facility] 07-10-2020 influenza virus vacc ine, unspecified formulation Yury Allred DO Work Phone: [facility] 03-29-2020 zoster vaccine recombinant Yury Allred DO Work Phone: [facility] Work Phone: 12-29-2019 zoster vaccine recombinant Yury Allred DO Work Phone: [facility] 07-10-2019 Influenza, injectabl e, Madin Mer Canine Kidney, preservative free, quadrivalent Yury Allred DO Work Phone: [facility] 07-10-2019 influenza, seasonal, injectable Yury Allred DO Work Phone: [facility] 07-12-2018 influenza, injectabl e, quadrivalent, preservative free Yury Allred DO Work Phone: [facility] 07-12-2018 influenza, seasonal, injectable Yury Allred DO Work Phone: [facility] 07-12-2018 pneumococcal polysaccharide vaccine, 23 valent Yury Allred DO Work Phone: [facility] 07-22-2017 influenza virus vacc ine, unspecified formulation Yury Allred DO Work Phone: [facility] 07-22-2017 influenza, injectabl e, quadrivalent, preservative free Yury Allred DO Work Phone: [facility] 07-11-2016 influenza, injectabl e, quadrivalent, contains preservative Yury Allred DO Work Phone: [facility] Work Phone: 07-11-2016 influenza, injectabl e, quadrivalent, preservative free Yury Allred DO Work Phone: [facility] 07-11-2016 zoster vaccine, live Yury Allred DO Work Phone: [facility] Work Phone: 07-05-2015 influenza, seasonal, injectable, preservative free Yury Allred DO Work Phone: [facility] 03-20-2014 diphtheria, tetanus toxoids and acellular pertussis vaccine Yury Allred DO Work Phone: [facility] Work Phone: 03-20-2014 diphtheria, tetanus toxoids and acellular pertussis vaccine, unspecified formulation Yury Allred DO Work Phone: [facility] 03-15-2014 tetanus toxoid, redu michelle diphtheria toxoid, and acellular pertussis vaccine, adsorbed Yury Allred DO Work Phone: [facility] Payers Date Payer Category Payer Private Health Insurance [id number] 2022 Private Health Insurance [id number] 2018 Unknown [employer] P[employer] [id number] 2018-Present [phone] [id number] [place] [address] PPO [id number] 2018 Unknown [id number] Social History Date Type Detail Facility Start: 10-01-2019 End: 09-22-2023 Tobacco smoking status NHIS Ex-smoker [facility] in End: 10-06-2018 History of tobacco use Cigarette Smoker [facility] Start: 10-01-2019 End: 02-13-2023 Cigarettes smoked current (pack per day) - Reported 0.3 [facility] Start: 10-01-2019 End: 09-22-2023 Tobacco use and exposure Smokeless tobacco non-user [facility] Start: 12-03-2021 End: 10-22-2023 Alcohol intake Current drinker of alcohol (finding) [facility] Start: 11-03-2020 History SDOH Alcohol Frequency 4 [facility] Start: 11-03-2020 History SDOH Alcohol Std Drinks 1 [facility] Start: 11-03-2020 History SDOH Social Connections Phone 3 [facility] Start: 11-03-2020 History SDOH Social Connections Get Together 2 [facility] Start: 11-03-2020 History SDOH Financial 5 [facility] Start: 11-03-2020 Education 12 [facility] Start: 10-01-2019 End: 07-08-2022 Tobacco Comment Quit 07/06/19 [facility] Start: 1960 Sex Assigned At Not on file [facility] End: 10-06-2018 History of tobacco use Current smoker [facility] Start: 06-28-2022 End: 08-01-2022 Exposure to SARS-CoV-2 (event) Not sure [facility] Start: 08-01-2022 Alcohol Comment anywhere from 1-3 beers a day [facility] Start: 11-03-2020 End: 02-13-2023 Social connection and isolation panel [facility] Do you belong to any clubs or organizations such as gnosticist groups, unions, fraternal or athletic groups, or school groups? No [facility] Are you now , , , , never or living with a partner? [facility] How often to you hav e a drink containing alcohol? 2-3 time sa week [facility] How many standard dr inks containing alcohol do you have on a typical day? 1 or 2 [facility] How often do you hav e 6 or more drinks on 1 occasion? Never [facility] How hard is it for y ou to pay for the very basics like food, housing, medical care, and heating Not hard at all [facility] Do you feel stress - tense, restless, nervous, or anxious, or unable to sleep at night because your mind is troubled all the time - these days [OSQ] Not at all [facility] (I/We) worried wheth er (my/our) food would run out before (I/we) got money to buy more. Never true [facility] Start: 11-18-2023 Alcohol intake Ex-drinker (finding) [facility] Clinical Notes 08-07-2015 to 11-18-2023 Marianela Morrow PA-C - 11/18/2023 1:50 PM ESTTelephone Encounter - Lori Hall LPN - 11/18/2023 11:28 AM ESTTelephone Encounter - Dianne Mccrary LPN - 11/18/2023 8:42 AM EST Note Date & Type Note Facility 11-18-2023 Note HNO ID: [id number] Author: MARIANELA MORROW PA-C Service: ? Author Type: Physician Senior Benefits Manager Type: Progress Notes Filed: 11/18/2023 14:21 Note Text: Patient: Faustino Parker PCP: Yury Allred DO CC: follow up HPI: Faustino Parker 63 year old male former minimal 6-pack-year smoker with PMH significant for HLD, HTN, and asthma. Longstanding history of allergies which never required immunotherapy. Initially evalauted by Dr. Hooper on 09/22/2023 for COPD. PFTs from 2018 showed no significant airways obstruction but was pertinent for air trapping. PFTs in September showed no obstruction and diffusion normal. Exhaled nitric oxide was also normal. Current maintenance therapy with Advair and Singulair. Today, patient states he is using Advair as needed. Daily cough productive of thick sputum. Ranges in color from white to dark brown. Cough is worse at bedtime and in the morning. No hemoptysis. Denies post nasal drip. No GERD or heartburn. No wheezing. Denies SOB. Works out daily with treadmill. Has right total shoulder replacement surgery scheduled . No recent hospitalizations or ED visits or upper respiratory infections. PAST MEDICAL HISTORY Diagnosis Date Allergies Arthritis Asthma Hypercholesteremia 08/2015 Hypertension Impaired fasting blood sugar 08/2015 Mild mitral regurgitation 09/2015 Mild tricuspid regurgitation 09/2015 Rotator cuff disorder, right Testicular torsion age 25 Allergies: Pollen Extracts Itching ezetimibe (ZETIA) 10 mg tablet Take 1 tablet by mouth once daily. acetaminophen (TYLENOL ARTHRITIS PAIN) 650 mg CR tablet Take 650 mg by mouth every 8 hours as needed for pain. fluticasone-salmeterol (ADVAIR DISKUS) 250-50 mcg/dose inhaler Inhale 1 Puff as instructed two times a day. Rinse and gargle mouth after use with water. atorvastatin (LIPITOR) 80 mg tablet Take 1 tablet by mouth daily at bedtime. lisinopril-hydroCHLOROthiazide (ZESTORETIC) 20-12.5 mg per tablet Take 1 tablet by mouth once daily. montelukast (SINGULAIR) 10 mg tablet Take 1 tablet by mouth daily at bedtime. tamsulosin (FLOMAX) 0.4 mg Take 1 capsule by mouth daily at bedtime. aspirin, enteric coated (ASPIRIN, ENTERIC COATED) 81 mg EC tablet Take 81 mg by mouth once daily. ipratropium-albuterol (DUONEB) 0.5 mg-3 mg(2.5 mg base)/3 mL nebu Inhale 3 mL as instructed every 4 hours as needed for wheezing/shortness of breath. 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 Pets: Dog and rabbit Family History Problem Relation Age of Onset Cancer Father lung other (HTN) Father Heart Brother 54 [place] Diabetes Brother PAST SURGICAL HISTORY Procedure Laterality Date COLONOSCOPY 08/01/2022 repeat in 10 years FRACTURE SURGERY PAST SURGICAL HISTORY OF 10/06/1996 Laminectomy L3-L5 PAST SURGICAL HISTORY OF 10/06/1984 Vasectomy, testcular torsion PAST SURGICAL HISTORY OF 10/06/2005 both wrists shattered and repaired SKIN BIOPSY HX TONSILLECTOMY HX I reviewed the past medical history, family history, social history and surgical history with changes noted above and updated in EMR. IMMUNIZATIONS Prevnar - xx Pneumovax - 2017 Influenza - xx COVID-19 - most recent 11/2021 ROS: CONSTITUTIONAL: No fevers, chills, nightsweats, unintended weight loss HEENT: Denies current nasal congestion/sinus symptoms, allergy problems. Hoarse voice EYES: No diplopia or blurry vision. CARDIOVASCULAR: No palpitations, orthopnea, PND, edema. PULM: See HPI GI: No dysphagia/odynophagia, problematic reflux. NEURO: No balance problems, peripheral weakness/paresthesias or numbness of concern. MUSC-SKEL: No joint pain, swelling, or erythema. Scheduled for shoulder replacement surgery. INTEGUMENTARY: No new skin changes or rashes PHYSICAL EXAMINATION: BP 114/70 (BP Site: Right Arm, BP Position: Sitting, BP Cuff Size: Regular Adult) Pulse 82 Resp 14 Ht 182.9 cm (6') Wt 103.5 kg (228 lb 3.2 oz) SpO2 93% BMI 30.95 kg/m? Gen: No acute distress. Cooperative with examination. HEENT: Normocephalic. Sclera, conjunctiva clear. Oral hygeine and dentition good. No thrush. Resp: No stridor, accessory respiratory muscle use, supra-sternal or intercostal retractions. No wheezes, crackles. CV: Regular rythm. Systolic murmur. Radial pulses normal. MSK: No kyphoscoliosis. Ext: Warm and well perfused. No clubbing, cyanosis, edema. (more content not included)... [facility] 11-18-2023 History of Presen t illness Narrative Images from the original note were not included. Patient: Faustino Parker PCP: Yury Allred DO CC: follow up HPI: Faustino Parker 63 year old male former minimal 6-pack-year smoker with PMH significant for HLD, HTN, and asthma. Longstanding history of allergies which never required immunotherapy. Initially evalauted by Dr. Hooper on 09/22/2023 for COPD. PFTs from 2018 showed no significant airways obstruction but was pertinent for air trapping. PFTs in September showed no obstruction and diffusion normal. Exhaled nitric oxide was also normal. Current maintenance therapy with Advair and Singulair. Today, patient states he is using Advair as needed. Daily cough productive of thick sputum. Ranges in color from white to dark brown. Cough is worse at bedtime and in the morning. No hemoptysis. Denies post nasal drip. No GERD or heartburn. No wheezing. Denies SOB. Works out daily with treadmill. Has right total shoulder replacement surgery scheduled . No recent hospitalizations or ED visits or upper respiratory infections. PAST MEDICAL HISTORY Diagnosis Date Allergies Arthritis Asthma Hypercholesteremia 08/2015 Hypertension Impaired fasting blood sugar 08/2015 Mild mitral regurgitation 09/2015 Mild tricuspid regurgitation 09/2015 Rotator cuff disorder, right Testicular torsion age 25 Allergies: Pollen Extracts Itching ezetimibe (ZETIA) 10 mg tablet Take 1 tablet by mouth once daily. acetaminophen (TYLENOL ARTHRITIS PAIN) 650 mg CR tablet Take 650 mg by mouth every 8 hours as needed for pain. fluticasone-salmeterol (ADVAIR DISKUS) 250-50 mcg/dose inhaler Inhale 1 Puff as instructed two times a day. Rinse and gargle mouth after use with water. atorvastatin (LIPITOR) 80 mg tablet Take 1 tablet by mouth daily at bedtime. lisinopril-hydroCHLOROthiazide (ZESTORETIC) 20-12.5 mg per tablet Take 1 tablet by mouth once daily. montelukast (SINGULAIR) 10 mg tablet Take 1 tablet by mouth daily at bedtime. tamsulosin (FLOMAX) 0.4 mg Take 1 capsule by mouth daily at bedtime. aspirin, enteric coated (ASPIRIN, ENTERIC COATED) 81 mg EC tablet Take 81 mg by mouth once daily. ipratropium-albuterol (DUONEB) 0.5 mg-3 mg(2.5 mg base)/3 mL nebu Inhale 3 mL as instructed every 4 hours as needed for wheezing/shortness of breath. 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 Pets: Dog and rabbit Family History Problem Relation Age of Onset Cancer Father lung other (HTN) Father Heart Brother 54 PA Diabetes Brother PAST SURGICAL HISTORY Procedure Laterality Date COLONOSCOPY 08/01/2022 repeat in 10 years FRACTURE SURGERY PAST SURGICAL HISTORY OF 10/06/1996 Laminectomy L3-L5 PAST SURGICAL HISTORY OF 10/06/1984 Vasectomy, testcular torsion PAST SURGICAL HISTORY OF 10/06/2005 both wrists shattered and repaired SKIN BIOPSY HX TONSILLECTOMY HX I reviewed the past medical history, family history, social history and surgical history with changes noted above and updated in EMR. IMMUNIZATIONS Prevnar - xx Pneumovax - 2017 Influenza - xx COVID-19 - most recent 11/2021 ROS: CONSTITUTIONAL: No fevers, chills, nightsweats, unintended weight loss HEENT: Denies current nasal congestion/sinus symptoms, allergy problems. Hoarse voice EYES: No diplopia or blurry vision. CARDIOVASCULAR: No palpitations, orthopnea, PND, edema. PULM: See HPI GI: No dysphagia/odynophagia, problematic reflux. NEURO: No balance problems, peripheral weakness/paresthesias or numbness of concern. MUSC-SKEL: No joint pain, swelling, or erythema. Scheduled for shoulder replacement surgery. INTEGUMENTARY: No new skin changes or rashes PHYSICAL EXAMINATION: BP 114/70 (BP Site: Right Arm, BP Position: Sitting, BP Cuff Size: Regular Adult) Pulse 82 Resp 14 Ht 182.9 cm (6') Wt 103.5 kg (228 lb 3.2 oz) SpO2 93% BMI 30.95 kg/m Gen: No acute distress. Cooperative with examination. HEENT: Normocephalic. Sclera, conjunctiva clear. Oral hygeine and dentition good. No thrush. Resp: No stridor, accessory respiratory muscle use, supra-sternal or intercostal retractions. No wheezes, crackles. CV: Regular rythm. Systolic murmur. Radial pulses normal. MSK: No kyphoscoliosis. Ext: Warm and well perfused. No clubbing, cyanosis, edema. Skin: No rash, ecchymoses. Neuro: Mental status normal. Affect normal. No tremor. DATA: PFT 2019: PFT 09/2023: Spirometry shows no obstruction and diffusion is normal SERVICE DATE: 09/22/2023 SERVICE TIME: 1:00 PM Oral Exhaled Nitric Oxide measurement: 6.0 (ppb) Labs: No eosinophilia noted on laboratory testing Imaging / Diagnostic Studies: CXR 09/2023 at [facility]: FINDINGS: LINES/DEVICES: None. LUNGS: No consolidation, edema or effusion. No pneumothorax. MEDIASTINUM AND CARDIOVASCULAR STRUCTURES: Cardiac silhouette not enlarged. Central airways and mediastinal contour are unremarkable. BONES AND SOFT TISSUES: Unremarkable. IMPRESSION: No radiographic evidence of acute cardiopulmonary disease. Echocardiogram, 11/03/2023 CONCLUSIONS: - Technically difficult exam due to body habitus. - Exam indication: Shortness of Breath - The exercise stress echo was negative for ischemia at 95 % of MPHR (8.9 METS). - The left ventricle is normal in size. There is mild posterior wall thickening. Left ventricular systolic function is normal. EF = 61 5% (2D biplane) Grade I left ventricular diastolic dysfunction. - The right ventricle is normal in size. Right ventricular systolic function is normal. - There is moderate aortic valve stenosis caused by calcified valve. AV area is 1.14 cm (0.51 cm /m ) by continuity, VTI. The peak gradient is 30 mmHg, the mean gradient is 15 mmHg and the dimensionless valve index is 0.33. - Mild to moderate aortic regurgitation. - The ascending aorta is dilated with a maximal dimension of 3.9 cm. - Exam was compared with the prior echocardiographic exam performed on 08/16/2015 (Stress). Mild aortic regurgitation was noted on prior stress ECHO. The ascending aorta dimension was not reported on the prior stress echo. SSMENT/PLAN: 1. Mild persistent asthma without complication - ICD9: 493.90, ICD10: J45.30 (primary diagnosis) Symptomatically improved, but continues with cough. Instructed patient to use Advair twice daily every day. Rinse mouth after each use to help prevent oral thrush. Duonebs as needed. Continue Singulair nightly. 2. Former light tobacco smoker - ICD9: V15.82, ICD10: Z87.891 Continued abstinence Does not qualify for lung cancer screening based on amount of smoking less than 20 pack years Portions of this documentation were copied and pasted from previous office visit notes in order to provide a cohesive continuity of the history. The note has been reviewed and edited and updated as necessary. Marianela Morrow PA-C documented in this encounter [facility] 11-18-2023 Miscellaneous Notes Medical Clearance faxed to [facility]. Also message left that he was cleared and faxed. Went to office looking for form can not locate in already faxed file, not on PCP desk, nurse is at CPR training this morning. Phoned [facility] left message for Kimberlee to fax another copy of the pre op clearance form to [phone]. Kimberlee from [facility] calling asking if pre op clearance form was faxed to [phone]? Her phone number is [phone] needs MARY LOU or patient surgery may have to be cancelled is . documented in this encounter [facility] 11-12-2023 Miscellaneous Notes Pt. informed via My Chart. Please inform patient that his labs are stable Pre operative clearance signed uYry Allred DO documented in this encounter [facility] 10-23-2023 Note HNO ID: [id number] Author: YURY ALLRED DO Service: ? Author Type: Physician Type: Progress Notes Filed: 10/22/2023 22:30 Note Text: CC: Faustino Pakrer is a 63 year old male who presents to the office for follow up HPI: He is scheduled to have right total shoulder replacement surgery by Dr. Palacios upcoming on 11/20/2023. He is awaiting his stress testing on 11/03/2023 to have completed before surgery. He has been able to see the Melting Operator for opinion. He is willing to start on a 2nd cholesterol medication- is taking lipitor 80 mg now and has CAD Recently diagnosed with asthma per Ux Design Manager, seen by Dr. Hooper. Is using the advair inhaler with benefit but does admit that he isn't usually this as regularly as prescribed. No recent need for albuterol. Planning on retiring in March 2024, has a very stressful demanding job and knows that this hasn't been helpful to his current health IFG, diet controlled Hemoglobin A1C Date Value Ref Range Status 10/07/2023 6.2 (H) 4.3 - 5.6 % Final Comment: [place] [employer] guidelines indicate that patients with HgbA1c in the range 5.7-6.4% are at increased risk for development of diabetes, and intervention by lifestyle modification may be beneficial. HgbA1c greater or equal to 6.5% is considered diagnostic of diabetes. 07/08/2022 6.0 (H) 4.3 - 5.6 % Final Comment: [place] [employer] guidelines indicate that patients with HgbA1c in the range 5.7-6.4% are at increased risk for development of diabetes, and intervention by lifestyle modification may be beneficial. HgbA1c greater or equal to 6.5% is considered diagnostic of diabetes. 03/19/2022 6.2 (H) 4.3 - 5.6 % Final Comment: [place] [employer] guidelines indicate that patients with HgbA1c in the range 5.7-6.4% are at increased risk for development of diabetes, and intervention by lifestyle modification may be beneficial. HgbA1c greater or equal to 6.5% is considered diagnostic of diabetes. 01/01/2021 6.1 (H) 4.3 - 5.6 % Final Comment: [employer] [employer] guidelines indicate that patients with HgbA1c in the range 5.7-6.4% are at increased risk for development of diabetes, and intervention by lifestyle modification may be beneficial. HgbA1c greater or equal to 6.5% is considered diagnostic of diabetes. 09/13/2019 6.2 (H) 4.3 - 5.6 % Final Comment: [employer] guidelines indicate that patients with HgbA1c in the range 5.7-6.4% are at increased risk for development of diabetes, and intervention by lifestyle modification may be beneficial. HgbA1c greater or equal to 6.5% is considered diagnostic of diabetes. Cholesterol, Total Date Value Ref Range Status 10/07/2023 241 (H) <200 mg/dL Final Comment: <200 mg/dL, Desirable 200-239 mg/dL, Borderline high >239 mg/dL, High HDL Cholesterol Date Value Ref Range Status 10/07/2023 63 >39 mg/dL Final Comment: 40-59 mg/dL, Acceptable >59 mg/dL, High: Negative risk factor for coronary heart disease <40 mg/dL, Low: Positive risk factor for coronary heart disease LDL Cholesterol Date Value Ref Range Status 10/07/2023 154 (H) <100 mg/dL Final Comment: <100 mg/dL, Optimal 100-129 mg/dL, Near optimal/above optimal 130-159 mg/dL, Borderline high 160-189 mg/dL, High >189 mg/dL, Very high Secondary prevention optimal LDL Cholesterol levels are recommended to be < 70 mg/dL Triglyceride Date Value Ref Range Status 10/07/2023 122 <150 mg/dL Final Comment: <150 mg/dL, Normal 150-199 mg/dL, Borderline high 200-499 mg/dL, High >499 mg/dL, Very high PAST MEDICAL HISTORY Diagnosis Date Allergies Arthritis Asthma Hypercholesteremia 08/2015 Hypertension Impaired fasting blood sugar 08/2015 Mild mitral regurgitation 09/2015 Mild tricuspid regurgitation 09/2015 Rotator cuff disorder, right Testicular torsion age 25 PAST SURGICAL HISTORY Procedure Laterality Date COLONOSCOPY 08/01/2022 repeat in 10 years FRACTURE SURGERY PAST SURGICAL HISTORY OF 10/06/1996 Laminectomy L3-L5 PAST SURGICAL HISTORY OF 10/06/1984 Vasectomy, testcular torsion PAST SURGICAL HISTORY OF 10/06/2005 both wrists shattered and repaired SKIN BIOPSY HX TONSILLECTOMY HX Current Outpatient Medications Medication Sig acetaminophen (TYLENOL ARTHRITIS PAIN) 650 mg CR tablet Take by mouth. ipratropium-albuterol (DUONEB) 0.5 mg-3 mg(2.5 mg base)/3 mL nebu Inhale 3 mL as instructed every 4 hours as needed for wheezing/shortness of breath. fluticasone-salmeterol (ADVAIR DISKUS) 250-50 mcg/dose inhaler Inhale 1 Puff as instructed two times a day. Rinse and gargle mouth after use with water. atorvastatin (LIPITOR) 80 mg tablet Take 1 tablet by mouth daily at bedtime. lisinopril-hydroCHLOROthiazide (ZESTORETIC) 20-12.5 mg per tablet Take 1 tablet by mouth once daily. montelukast (SINGULAIR) 10 mg tablet Take 1 tablet by mouth daily at bedtime. t (more content not included)... [facility] 10-07-2023 Note HNO ID: [id number] Author: Marbin Pederson MD Service: ? Author Type: Physician Type: Progress Notes Filed: 10/07/2023 4:48 PM Note Text: CARDIOLOGY CONSULT NOTE REASON FOR CONSULT: Coronary artery calcification REQUESTING PHYSICIAN: Dr. Charlotte Hooper My final recommendations will be communicated back to the requesting provider by way of shared medical record or letter via [place] mail HPI: Mr. Parker is a 63 year old male with history of mixed hyperlipidemia, asthma, prediabetes who is presenting for evaluation of coronary artery calcification. Patient states he had CT scan done for evaluation of shortness of breath. This showed incidental coronary artery calcification. Patient does not have known history of coronary artery disease. He reports an active lifestyle and exercises on a regular basis. Strenuous exercise causes some shortness of breath however he denies having any chest pain with exertion. Last stress test was done in 2014 and it was negative for ischemia. PAST MEDICAL HISTORY Diagnosis Date Allergies Arthritis Asthma Hypercholesteremia 08/2015 Hypertension Impaired fasting blood sugar 08/2015 Mild mitral regurgitation 09/2015 Mild tricuspid regurgitation 09/2015 Rotator cuff disorder, right Testicular torsion age 25 PAST SURGICAL HISTORY Procedure Laterality Date COLONOSCOPY 08/01/2022 repeat in 10 years FRACTURE SURGERY PAST SURGICAL HISTORY OF 10/06/1996 Laminectomy L3-L5 PAST SURGICAL HISTORY OF 10/06/1984 Vasectomy, testcular torsion PAST SURGICAL HISTORY OF 10/06/2005 both wrists shattered and repaired SKIN BIOPSY HX TONSILLECTOMY HX SOCIAL HISTORY Social History Tobacco Use Smoking status: Former Packs/day: 0.30 Years: 20.00 Additional pack years: 0.00 Total pack years: 6.00 Types: Cigarettes Quit date: 2018 Years since quittin.0 Smokeless tobacco: Never Tobacco comments: Quit 07/06/19 Vaping Use Vaping Use: Never used Substance Use Topics Alcohol use: Yes Comment: anywhere from 1-3 beers a day Drug use: No FAMILY HISTORY Problem Relation Age of Onset Cancer Father lung other (HTN) Father Heart Brother 54 [place] Diabetes Brother Family history was reviewed ALLERGIES Allergen Reactions Pollen Extracts Itching MEDICATIONS: acetaminophen (TYLENOL ARTHRITIS PAIN) 650 mg CR tablet Take by mouth. ipratropium-albuterol (DUONEB) 0.5 mg-3 mg(2.5 mg base)/3 mL nebu Inhale 3 mL as instructed every 4 hours as needed for wheezing/shortness of breath. fluticasone-salmeterol (ADVAIR DISKUS) 250-50 mcg/dose inhaler Inhale 1 Puff as instructed two times a day. Rinse and gargle mouth after use with water. atorvastatin (LIPITOR) 80 mg tablet Take 1 tablet by mouth daily at bedtime. lisinopril-hydroCHLOROthiazide (ZESTORETIC) 20-12.5 mg per tablet Take 1 tablet by mouth once daily. montelukast (SINGULAIR) 10 mg tablet Take 1 tablet by mouth daily at bedtime. tamsulosin (FLOMAX) 0.4 mg Take 1 capsule by mouth daily at bedtime. aspirin, enteric coated (ASPIRIN, ENTERIC COATED) 81 mg EC tablet Take 81 mg by mouth once daily. amitriptyline (ELAVIL) 50 mg tablet Take 1 tablet by mouth daily at bedtime. REVIEW OF SYSTEMS: GENERAL: Negative for:Weight loss and Weight gain HEENT: Negative for:Nosebleeds RESPIRATORY: Positive for:Shortness of breath GASTROINTESTINAL: Negative for:Blood in stool MUSCULOSKELETAL: Negtive for: Muscle or joint pain, stiffness, Joint swelling SKIN: No rash HEMATOLOGICAL/LYMPHATIC: Negative for: Easy bruising and Easy bleeding CARDIOVASCULAR: As stated in HPI. 10 system review negative except as stated in HPI PHYSICAL EXAMINATION: BP 133/87 Pulse 81 Ht 182.9 cm (6') Wt 100.4 kg (221 lb 6.4 oz) SpO2 96% BMI 30.03 kg/m? General: Well appearing, appears stated age and in no acute distress. Psych: Normal Affect. Alert and oriented to person, place and time. HEENT: Sclera are anicteric, conjunctivae are moist without subconjunctival hemorrhage. PERRLA. Head is atraumatic. Neck: Neck is supple. No jugular venous distention. Lungs: Clear to auscultation bilaterally, no wheezing or rhonchi. Heart: S1, S2 normal, no murmur Abdomen. Soft, nontender, no organomegaly. Extremities: No peripheral edema Skin. Normal temperature, turgor and texture. No rashes, ulcers or subcutaneous nodules noted. Neuro: Grossly nonfocal LABS TSH 0.958 11/17/2017 Triglyceride 126 07/08/2022 HDL Cholesterol 67 07/08/2022 LDL Cholesterol 160 07/08/2022 Cholesterol, Total 252 07/08/2022 EK lead EKG 10/07/2023 shows normal sinus rhythm. MI and QT intervals are normal. There are no ST segment changes suggestive of ischemia or infarction. Impression/Recommendations Coronary artery calcification Essential hypertension Mixed hyperlipidemia History of asthma with mild shortness of breath Prediabetes Reviewed CT scan with patient in detail. Prominent ca (more content not included)... [facility] 09-22-2023 Note HNO ID: [id number] Author: Charlotte Hooper MD Service: ? Author Type: Physician Type: Progress Notes Filed: 09/22/2023 3:01 PM Note Text: . Respiratory [place] Note Patient name: Faustino Parker PCP: Yury Allred DO Referring Physician: Melania Owen, ANIME ARTIST Consultation requested by Melania Owen for an opinion regarding COPD. My final recommendations will be communicated back to the requesting physician by way of shared Medical record or letter to requesting physician via US mail. CC: SOB/chest tightness HPI: Faustino Parker 63 year old male former minimal 6-pack-year smoker with PMH significant for HLD, HTN, and history of COPD recently seen in [facility] ED for an exacerbation. Ill several weeks ago with typical URI, rhinorrhea and cough with occasional sputum production. He was treated with several rounds of antibiotics and steroids without relief. Noted worsening chest tightness and shortness of breath which prompted his visit to the emergency department. Noted to be hypoxemic, COVID/RSV/flu negative but positive for rhinovirus. Treated with nebs and IV Solumedrol with improvement so did not need admission to hospital. He has a longstanding history of allergies, he never required immunotherapy. No formal testing. He has been on Singulair or OTC antihistamines for many years. He does not have a formal history of asthma but was told in 2017 that he had COPD. PFTs from 2019 showed no significant airways obstruction but was pertinent for air trapping. He has been on Advair discus since that time which he uses as needed . He will uses Advair once or twice daily when he develops chest tightness and shortness of breath. He does not relate any obvious triggers such as changes in the weather, exposure to strong odors or fumes. He does not carry a history of recurrent bronchitis pneumonia. He was discharged from the emergency department with a steroid taper. He has been using Advair discus 1 elation a day and DuoNeb scheduled 4 times a day. He continues to have intermittent chest tightness and breathlessness. No significant cough or sputum production. He has new hoarse voice and sore throat. No globus sensation, stridor or symptoms to suggest vocal cord dysfunction. He denies any nasal congestion with drainage or acid reflux symptoms. He has been off steroids for one week. DATA: PFT 2019: PFT today: Spirometry shows no obstruction and diffusion is normal SERVICE DATE: 09/22/2023 SERVICE TIME: 1:00 PM Oral Exhaled Nitric Oxide measurement: 6.0 (ppb) Labs: No eosinophilia noted on laboratory testing Imaging / Diagnostic Studies: CXR 09/2023 at [facility]: FINDINGS: LINES/DEVICES: None. LUNGS: No consolidation, edema or effusion. No pneumothorax. MEDIASTINUM AND CARDIOVASCULAR STRUCTURES: Cardiac silhouette not enlarged. Central airways and mediastinal contour are unremarkable. BONES AND SOFT TISSUES: Unremarkable. IMPRESSION: No radiographic evidence of acute cardiopulmonary disease. DATE OF EXAM: Sep 11 2023 8:42AM [facility] [id number] - CT CHEST WO IVCON / PROCEDURE REASON: Wheezing CLINICAL HISTORY: Wheezing Comparison: No prior CT chest is available for comparison RESULT: Limitations: None. Lines, tubes, and devices: None. Lung parenchyma and airways: No consolidation. No suspicious pulmonary nodule. Mild bronchial wall thickening. Scattered mucous plugging. The central airways are patent. Pleural space: No pleural effusion. No pleural thickening. Lower neck, lymph nodes, and mediastinum: The imaged thyroid gland is normal. No lymphadenopathy in the supraclavicular, axillary, mediastinal, or hilar regions. Heart, pericardium, and thoracic vessels: The thoracic aorta and main pulmonary artery are normal in caliber. The cardiac chambers are normal in size. Coronary artery atherosclerotic calcifications are noted, although the study is not optimized for coronary assessment. No pericardial effusion or thickening. Bones and soft tissues: No destructive bone lesion. Degenerative disease of the thoracic spine. Chest wall is unremarkable. Upper abdomen: No abnormality in the imaged upper abdomen. IMPRESSION: No pleural effusion or consolidation. Mild bronchial wall thickening. Scattered mucous plugging. I personally reviewed the images and agree with the above assessment. Extensive coronary calcifications most prominent in LAD PAST MEDICAL HISTORY Diagnosis Date Allergies Arthritis Asthma Hypercholesteremia 08/2015 Hypertension Impaired fasting blood sugar 08/2015 Mild mitral regurgitation 09/2015 Mild tricuspid regurgitation 09/2015 Rotator cuff disorder, right Testicular torsion age 25 ALLERGIES No Known Allergies montelukast (SINGULAIR) 10 mg tablet Take 1 tablet by mouth daily at bedtime. ipratropium-albuterol (DUONEB) 0.5 mg-3 mg(2.5 mg base)/3 mL nebu Inhale 3 mL as ins (more content not included)... [facility] 09-22-2023 Note HNO ID: [id number] Author: Cuca Medina RPFT Service: ? Author Type: Respiratory Therapist Type: Procedures Filed: 09/22/2023 1:00 PM Note Text: RESPIRATORY THERAPY ORAL EXHALED NITRIC OXIDE SERVICE DATE: 09/22/2023 SERVICE TIME: 1:00 PM Oral Exhaled Nitric Oxide measurement: 6.0 (ppb) Normal: Adult 5-20 ppb, pediatric (<12 years) 5-15 ppb High Normal / Increased: Adult 20-35 ppb, pediatric (<12 years) 15-25 ppb Moderately raised exhaled Nitric Oxide may indicate underlying inflammation, but note that: Cold and influenza can raise exhaled Nitric Oxide and some patients have higher baseline exhaled Nitric Oxide levels than others. High: Adult >35 ppb, pediatric (<12 years) >25 ppb Indicative of ongoing eosinophilic inflammation. Symptomatic patient likely to respond to steroids. Possible causes (if already on steroids): Poor compliance, recent allergen exposure, steroid dose inadequate, and steroid resistance. Note that not all patients with high exhaled nitric oxide levels display symptoms. Oral Exhaled Nitric Oxide measurement (Previous Encounters) Test Date Oral Exhaled Nitric Oxide (ppb) 09/22/2023 6.0 NAME: TEO Lemos PATIENT NAME: Faustino Parker DATE: September 22, 2023 TIME: 1:00 PM [facility] 09-22-2023 Note HNO ID: [id number] Author: Cuca Medina RPFT Service: ? Author Type: Respiratory Therapist Type: Progress Notes Filed: 09/22/2023 1:00 PM Note Text: PULM FUNCTION SMARTBLOCK: Provider: Charlotte Hooper MD Assisting Tech: Charlotte oHoper MD Spirometry: 1 DLCO: 1 Exhaled Nitric Oxide: 1 [facility] 09-11-2023 Miscellaneous Notes Noted. Thank you, Melania Owen APRN.ANIME ARTIST Spoke with pt gave information provided. Pt voices understanding. Will see Ux Design Manager the when off prednisone. Please call patient and let him know that CT scan showed some mild wall thickening and mucous plugging. No signs of infection or pneumonia. Wall thickening is likely due to inflammation from COPD trigger and mucous plugging is trapped mucous drainage. Continue to use inhalers and nebulizer, increase fluids for hydration, and use humidifier if able. Can take OTC mucinex as well to help break up mucous and expel it. Continue with pulmonology appt. Thank you, Melania Owen APRN.ANIME ARTIST documented in this encounter [facility] 09-11-2023 Note HNO ID: [id number] Author: Suzanna Freeman RT(R) Service: ? Author Type: Laboratory Inspector Type: Progress Notes Filed: 09/11/2023 8:55 AM Note Text: Radiology Service Progress Note PATIENT NAME: Faustino Parekr DATE OF SERVICE: September 11, 2023 TIME: 8:54 AM PATIENT IDENTITY VERIFICATION COMPLETED USING TWO (2) IDENTIFIERS: Name and Date of confirmed by patient verbally. FALL SCREENING: Has the patient had 2 falls in the last year or 1 fall with injury or currently using an Ambulatory Assistive Device (Walker, Cane, Wheelchair, Crutches, etc.)? No PATIENT GENDER DATA: Male PATIENT RELEVANT IMPLANT DATA REVIEWED: Yes RADIOLOGY DEPARTMENT: CT; Exam(s) Completed: Chest PERIPHERAL IV DATA: Not applicable SIGNED BY: RT Rad(R) September 11, 2023 8:54 AM [facility] 09-11-2023 History of Presen t illness Narrative Radiology Service Progress Note PATIENT NAME: Faustino Parker DATE OF SERVICE: September 11, 2023 TIME: 8:54 AM PATIENT IDENTITY VERIFICATION COMPLETED USING TWO (2) IDENTIFIERS: Name and Date of confirmed by patient verbally. FALL SCREENING: Has the patient had 2 falls in the last year or 1 fall with injury or currently using an Ambulatory Assistive Device (Walker, Cane, Wheelchair, Crutches, etc.)? No PATIENT GENDER DATA: Male PATIENT RELEVANT IMPLANT DATA REVIEWED: Yes RADIOLOGY DEPARTMENT: CT; Exam(s) Completed: Chest PERIPHERAL IV DATA: Not applicable SIGNED BY: RT Rad(R) September 11, 2023 8:54 AM documented in this encounter [facility] 09-10-2023 Note HNO ID: [id number] Author: Melania Owen APRN.ANIME ARTIST Service: ? Author Type: Nurse Practitioner Type: Progress Notes Filed: 09/10/2023 1:05 PM Note Text: Chief Complaint Patient presents with: hospital f/up : Pt states does not feel much better. 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 HPI Faustino Parker is a 63 year old male who presents here today for Above Complaints. Chauncey is an established patient of Dr. Mynor JEFF. He is a new patient to me today. Concerns today.. ER follow-up --- [facility] ER visit on 09/07/23 d/t SOB and URI-like symptoms. Pulse ox was 88% on RA. 92% on 2L NC. Was admitted d/t COPD exacerbation with hypoxia. COVID/flu were negative. CBC and CMP -- slightly elevated WBC at 12.8, otherwise unremarkable. CXR -- normal, no pneumothorax or consolidation. No antibiotics given. Given duoNeb, Solu-medrol IV, and oral steroids. EKG -- NSR rate of 80. Sputum culture showed no growth. Sent home with duoneb solution, prednisone taper, and cough syrup. In office today.... Pt reports feeling no better. On prednisone taper still with no relief. Pt reports heavy chest congestion, feels like someone is sitting on his lungs. Productive cough with white sputum. In hospital it was green/brown sputum. Fever 1 week ago but none since. This is first ever COPD exacerbation since diagnosis numerous years ago. Normally can fight off respiratory illness fairly quickly. Has never needed O2 therapy. Has never seen kai[place] k[place] maori due to well controlled prior. Prescribed Advair inhaler -- pt reports not taking this because he was unsure if he should take this with albuterol nebulizer. 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 Hospital instructed to take 1 week off until symptoms return to baseline. Pt brought in disability and FMLA paperwork. Past medical history, appointments, medications, allergies reviewed. Previous Medical History PAST MEDICAL HISTORY Diagnosis Date Arthritis COPD (chronic obstructive pulmonary disease) (HCC) Hypercholesteremia 08/2015 Hypertension Impaired fasting blood sugar 08/2015 Mild mitral regurgitation 09/2015 Mild tricuspid regurgitation 09/2015 Rotator cuff disorder, right Testicular torsion age 25 Tobacco abuse Previous Surgical History PAST SURGICAL HISTORY Procedure Laterality Date BACK SURGERY HX COLONOSCOPY 08/01/2022 repeat in 10 years FRACTURE SURGERY PAST SURGICAL HISTORY OF 10/06/1996 Laminectomy L3-L5 PAST SURGICAL HISTORY OF 10/06/1984 Vasectomy, testcular torsion PAST SURGICAL HISTORY OF 10/06/2005 both wrists shattered and repaired SKIN BIOPSY HX TONSILLECTOMY HX Family History FAMILY HISTORY Problem Relation Age of Onset Cancer Father lung Heart Brother 54 PA Patient Allergies ALLERGIES No Known Allergies Current Medications Current Outpatient Medications on File Prior to Visit Medication Sig atorvastatin (LIPITOR) 80 mg tablet Take 1 tablet by mouth daily at bedtime. lisinopril-hydroCHLOROthiazide (ZESTORETIC) 20-12.5 mg per tablet Take 1 tablet by mouth once daily. montelukast (SINGULAIR) 10 mg tablet Take 1 tablet by mouth daily at bedtime. tamsulosin (FLOMAX) 0.4 mg Take 1 capsule by mouth daily at bedtime. fluticasone-salmeterol (ADVAIR DISKUS) 250-50 mcg/dose inhaler Inhale 1 Puff as instructed two times a day. Rinse and gargle mouth after use with water. amitriptyline (ELAVIL) 50 mg tablet Take 1 tablet by mouth daily at bedtime. aspirin, enteric coated (ASPIRIN, ENTERIC COATED) 81 mg EC tablet Take 81 mg by mouth once daily. No current facility-administered medications on file prior to visit. Social History Social History Tobacco Use Smoking status: Former Packs/day: 0.30 Years: 13.00 Additional pack years: 0.00 Total pack years: 3.90 Types: Cigarettes Smokeless tobacco: Never Tobacco comments: Quit 07/06/19 Vaping Use Vaping Use: Never used Substance Use Topics Alcohol use: Yes Comment: anywhere from 1-3 beers a day Drug use: No REVIEW OF SYSTEMS: as above Reviewed relevant PMHx, PSHx, Social Hx, current medications and allergies. Review of Symptoms REVIEW OF SYSTEMS See HPI. EXAM: BP 122/70 (BP Site: Left Arm, BP Position: Sitting, BP Cuff Size: Large Adult) Pulse 76 Temp 37.2 ?C (98.9 ?F) Wt 98.8 kg (217 lb 12.8 oz) SpO2 90% BMI 30.38 kg/m? General Appearance: Well appearing, alert, in no acute distress, well-hydrated, well nourished.. Skin: Skin color, texture, turgor normal, no suspicious rashes or lesions. Head: Normocephalic, no masses, lesions, tenderness or abnormalities. Lungs: Positive findings: wheezing , tachypnea Shortness of breath: At rest Cough. Heart: RRR without murmur, gallop, or rubs. No ectopy. Health Maintenance List BP Controlled (<130/80) Never done Alpha-1 Antitrypsin Deficiency Screening N (more content not included)... [facility] 09-10-2023 History of Presen t illness Narrative Chief Complaint Patient presents with: hospital f/up : Pt states does not feel much better. 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 HPI Faustino Parker is a 63 year old male who presents here today for Above Complaints. Chauncey is an established patient of Dr. Mynor JEFF. He is a new patient to me today. Concerns today.. ER follow-up --- [facility] ER visit on 09/07/23 d/t SOB and URI-like symptoms. Pulse ox was 88% on RA. 92% on 2L NC. Was admitted d/t COPD exacerbation with hypoxia. COVID/flu were negative. CBC and CMP -- slightly elevated WBC at 12.8, otherwise unremarkable. CXR -- normal, no pneumothorax or consolidation. No antibiotics given. Given duoNeb, Solu-medrol IV, and oral steroids. EKG -- NSR rate of 80. Sputum culture showed no growth. Sent home with duoneb solution, prednisone taper, and cough syrup. In office today.... Pt reports feeling no better. On prednisone taper still with no relief. Pt reports heavy chest congestion, feels like someone is sitting on his lungs. Productive cough with white sputum. In hospital it was green/brown sputum. Fever 1 week ago but none since. This is first ever COPD exacerbation since diagnosis numerous years ago. Normally can fight off respiratory illness fairly quickly. Has never needed O2 therapy. Has never seen k[place] ma[place] due to well controlled prior. Prescribed Advair inhaler -- pt reports not taking this because he was unsure if he should take this with albuterol nebulizer. 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 Hospital instructed to take 1 week off until symptoms return to baseline. Pt brought in disability and FMLA paperwork. Past medical history, appointments, medications, allergies reviewed. Previous Medical History PAST MEDICAL HISTORY Diagnosis Date Arthritis COPD (chronic obstructive pulmonary disease) (HCC) Hypercholesteremia 08/2015 Hypertension Impaired fasting blood sugar 08/2015 Mild mitral regurgitation 09/2015 Mild tricuspid regurgitation 09/2015 Rotator cuff disorder, right Testicular torsion age 25 Tobacco abuse Previous Surgical History PAST SURGICAL HISTORY Procedure Laterality Date BACK SURGERY HX COLONOSCOPY 08/01/2022 repeat in 10 years FRACTURE SURGERY PAST SURGICAL HISTORY OF 10/06/1996 Laminectomy L3-L5 PAST SURGICAL HISTORY OF 10/06/1984 Vasectomy, testcular torsion PAST SURGICAL HISTORY OF 10/06/2005 both wrists shattered and repaired SKIN BIOPSY HX TONSILLECTOMY HX Family History FAMILY HISTORY Problem Relation Age of Onset Cancer Father lung Heart Brother 54 PA Patient Allergies ALLERGIES No Known Allergies Current Medications Current Outpatient Medications on File Prior to Visit Medication Sig atorvastatin (LIPITOR) 80 mg tablet Take 1 tablet by mouth daily at bedtime. lisinopril-hydroCHLOROthiazide (ZESTORETIC) 20-12.5 mg per tablet Take 1 tablet by mouth once daily. montelukast (SINGULAIR) 10 mg tablet Take 1 tablet by mouth daily at bedtime. tamsulosin (FLOMAX) 0.4 mg Take 1 capsule by mouth daily at bedtime. fluticasone-salmeterol (ADVAIR DISKUS) 250-50 mcg/dose inhaler Inhale 1 Puff as instructed two times a day. Rinse and gargle mouth after use with water. amitriptyline (ELAVIL) 50 mg tablet Take 1 tablet by mouth daily at bedtime. aspirin, enteric coated (ASPIRIN, ENTERIC COATED) 81 mg EC tablet Take 81 mg by mouth once daily. No current facility-administered medications on file prior to visit. Social History Social History Tobacco Use Smoking status: Former Packs/day: 0.30 Years: 13.00 Additional pack years: 0.00 Total pack years: 3.90 Types: Cigarettes Smokeless tobacco: Never Tobacco comments: Quit 07/06/19 Vaping Use Vaping Use: Never used Substance Use Topics Alcohol use: Yes Comment: anywhere from 1-3 beers a day Drug use: No REVIEW OF SYSTEMS: as above Reviewed relevant PMHx, PSHx, Social Hx, current medications and allergies. Review of Symptoms REVIEW OF SYSTEMS See HPI. EXAM: BP 122/70 (BP Site: Left Arm, BP Position: Sitting, BP Cuff Size: Large Adult) Pulse 76 Temp 37.2 C (98.9 F) Wt 98.8 kg (217 lb 12.8 oz) SpO2 90% BMI 30.38 kg/m General Appearance: Well appearing, alert, in no acute distress, well-hydrated, well nourished.. Skin: Skin color, texture, turgor normal, no suspicious rashes or lesions. Head: Normocephalic, no masses, lesions, tenderness or abnormalities. Lungs: Positive findings: wheezing , tachypnea Shortness of breath: At rest Cough. Heart: RRR without murmur, gallop, or rubs. No ectopy. Health Maintenance List BP Controlled (<130/80) Never done Alpha-1 Antitrypsin Deficiency Screening Never done Pneumococcal Vaccine(2 - PCV) due on 07/12/2019 RSV Vaccine(1 - 1-dose 60+ series) Never done Depression Assessment Never done Influenza Vaccine(1) due on 06/06/2023 Covid-19 Vaccine(3 - 2022- season) due on 06/06/2023 Annual PCP Team Chronic Disease Visit due on 02/14/2024 DTaP,Tdap,Td Vaccine(4 - Td or Tdap) due on 03/20/2024 Diabetes Screening due on 07/08/2025 Lipid Screening due on 07/08/2027 Prostate Cancer Screening Discussion due on 07/08/2027 Colorectal Cancer Screening due on 08/01/2032 Spirometry Completed Hepatitis C Screening Completed HIV Screening Completed Shingrix Vaccine Completed ASSESSMENT/PLAN: 1. COPD with exacerbation (HCC) - ICD9: 491.21, ICD10: J44.1 (primary diagnosis) No improvement since hospital discharge. Start doxycycline BID x 10 days. Continue on prednisone taper as prescribed at discharge. Instructed pt to continue on daily advair BID with the albuterol nebulizer treatments q 4-[address] chest to further investigate. Follow-up with pulmonology for further testing and opinion. Filled out paperwork for FMLA x 2 weeks given hypoxia, SOB, and COPD exacerbation. 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 Pt may need extension given pulmonology opinion. If back to baseline sooner, pt can return to work sooner. - DOXYCYCLINE HYCLATE 100 MG TABLET - CONSULT TO PULM/CRITICAL CARE - CT CHEST WO IVCON - CONSULT TO PULMONARY MEDICINE - CT CHEST WO IVCON 2. Wheezing - ICD9: 786.07, ICD10: R06.2 See above. - DOXYCYCLINE HYCLATE 100 MG TABLET - CONSULT TO PULM/CRITICAL CARE - CT CHEST WO IVCON - CONSULT TO PULMONARY MEDICINE - CT CHEST WO IVCON 3. Hypoxia - ICD9: 799.02, ICD10: R09.02 See above. - DOXYCYCLINE HYCLATE 100 MG TABLET - CONSULT TO PULMONARY MEDICINE - CT CHEST WO IVCON RTO as needed. Prescription instructions reviewed with patient as applicable. Potential red flag symptoms discussed with the patient. Reviewed appropriate action plan to take if red flag symptoms occur. Patient agreeable to treatment plan. Melania Costello APRN.ANIME ARTIST [address] [place] [address] documented in this encounter [facility] 09-07-2023 Note HNO ID: [id number] Author: Modesto Frye APRN.ASHUTOSH Service: ? Author Type: Nurse Practitioner Type: Progress Notes Filed: 09/07/2023 12:41 PM Note Text: Patient triaged at [facility]. Here today with cough, sob wheezing for few days. Patient using excess ory muscles. 91% on Ra. Resp rate 28. Hx of copd. I will refer to Er, family to drive to ER. [facility] 09-07-2023 History of Presen t illness Narrative Patient triaged at [facility]. Here today with cough, sob wheezing for few days. Patient using excess ory muscles. 91% on Ra. Resp rate 28. Hx of copd. I will refer to Er, family to drive to ER. documented in this encounter [facility] 08-12-2023 Miscellaneous Notes Patient has been identified by name and date of : Yes Patient phones for refill(s): Requested Prescriptions Pending Prescriptions Disp Refills tamsulosin (FLOMAX) 0.4 mg [Pharmacy Med Name: TAMSULOSIN HCL 0.4 MG CAPSULE] 90 capsule 3 Sig: take 1 capsule by mouth at bedtime Date of last office visit in primary care: 02/13/2023 Date of next office visit in primary care: 10/22/2023 Please advise. Thank you. Maira Kirby LPN. documented in this encounter [facility] 08-04-2023 Note HNO ID: [id number] Author: Deuce Mark MD Service: ? Author Type: Physician Type: Progress Notes Filed: 08/04/2023 3:03 PM Note Text: UNIVERSAL PROTOCOL / SAFETY CHECKLIST Procedure to be Performed: EMG Sign In: A Moment of CARE was completed. Personnel directly involved with the procedure wore the appropriate PPE (Personal Protective Equipment). Patient/Surrogate Stated/Verified: PATIENT VERIFIED(optional for EMERGENT procedures): Patient name, Date of , Relevant allergies, and The intended procedure Time Out Communication: Intended patient and procedure match the source documents. Correct side/site marked and visible. Sign Out: SIGN OUT (optional for EMERGENT procedures): Post-procedure follow-up management communicated and Plan of Care Visit completed when applicable. YAMIL Benson. Deuce Mark MD [facility] 08-04-2023 History of Presen t illness Narrative UNIVERSAL PROTOCOL / SAFETY CHECKLIST Procedure to be Performed: EMG Sign In: A Moment of CARE was completed. Personnel directly involved with the procedure wore the appropriate PPE (Personal Protective Equipment). Patient/Surrogate Stated/Verified: PATIENT VERIFIED(optional for EMERGENT procedures): Patient name, Date of , Relevant allergies, and The intended procedure Time Out Communication: Intended patient and procedure match the source documents. Correct side/site marked and visible. Sign Out: SIGN OUT (optional for EMERGENT procedures): Post-procedure follow-up management communicated and Plan of Care Visit completed when applicable. YAMIL Benson. Deuce Mark MD documented in this encounter [facility] 08-04-2023 Miscellaneous Notes [place] 02/13/23 NOV 10/22/23 Patient has been identified by name and date of : Yes Last office visit in this department: 02/13/2023 RX INSTRUCTIONS: Patient aware RX will be sent to pharmacy. No need to notify patient. Patient phones requesting refills as follows: Requested Prescriptions Pending Prescriptions Disp Refills fluticasone-salmeterol (ADVAIR DISKUS) 250-50 mcg/dose inhaler 1 Each 3 Sig: Inhale 1 Puff as instructed two times a day. Rinse and gargle mouth after use with water. Please review and advise. Karlee Pan documented in this encounter [facility] 07-07-2023 Note HNO ID: [id number] Author: Sasha Graves RT(R) Service: Radiology Author Type: Technologist Type: Progress Notes Filed: 07/07/2023 4:03 PM Note Text: Radiology Service Progress Note PATIENT NAME: Faustino Parker DATE OF SERVICE: July 07, 2023 TIME: 3:54 PM PATIENT IDENTITY VERIFICATION COMPLETED USING TWO (2) IDENTIFIERS: Name and Date of confirmed by patient verbally. FALL SCREENING: Has the patient had 2 falls in the last year or 1 fall with injury or currently using an Ambulatory Assistive Device (Walker, Cane, Wheelchair, Crutches, etc.)? No PATIENT GENDER DATA: Male PATIENT RELEVANT IMPLANT DATA REVIEWED: Yes RADIOLOGY DEPARTMENT: General X-ray: Exam(s) Completed: Lower Extremity X-Ray(s): Ankle, Right and Wt. Bearing PERIPHERAL IV DATA: Not applicable SIGNED BY: RT Lavern(R) July 07, 2023 3:54 PM [facility] 07-07-2023 Note HNO ID: [id number] Author: Nils Sal Service: ? Author Type: Physician Type: Progress Notes Filed: 07/07/2023 9:51 PM Note Text: Initial Podiatric Office Visit: Chief Complaint: This 62 year old male who presents with chief complaint:pain/numbness in both feet HPI Patient presents to clinic for evaluation of b/l feet Patient has pain and numbness in both feet. The right is more painful This pain has been going on for several week. Patient denies any injury Patient states the pain is more intermittent Patient will take nsaids at times but it does not really help PAIN EVALUATION 06/30/2023 1658 07/07/2023 1524 Pain Level: 1 4 Description: Aching;Burning;Numbness;Throbbin g;Tingling -- Duration Amount of Time: 15 -- Duration Units: Months -- Frequency: Continuous -- Intervention/Comfort measure: Reposition;Relaxation -- Hemoglobin A1C (%) Date Value 07/08/2022 6.0 03/19/2022 6.2 01/01/2021 6.1 09/13/2019 6.2 11/17/2017 6.0 03/17/2017 5.8 05/24/2016 6.0 PCP: Yury Allred DO PAST MEDICAL HISTORY Diagnosis Date Arthritis COPD (chronic obstructive pulmonary disease) (HCC) Hypercholesteremia 08/2015 Hypertension Impaired fasting blood sugar 08/2015 Mild mitral regurgitation 09/2015 Mild tricuspid regurgitation 09/2015 Rotator cuff disorder, right Testicular torsion age 25 Tobacco abuse Current Outpatient Medications Medication Sig atorvastatin (LIPITOR) 80 mg tablet Take 1 tablet by mouth daily at bedtime. lisinopril-hydroCHLOROthiazide (ZESTORETIC) 20-12.5 mg per tablet Take 1 tablet by mouth once daily. montelukast (SINGULAIR) 10 mg tablet Take 1 tablet by mouth daily at bedtime. fluticasone-salmeterol (ADVAIR DISKUS) 250-50 mcg/dose inhaler Inhale 1 Puff as instructed twice daily. Rinse and gargle mouth after use with water. aspirin, enteric coated (ASPIRIN, ENTERIC COATED) 81 mg EC tablet Take 81 mg by mouth once daily. tamsulosin (FLOMAX) 0.4 mg Take 1 capsule by mouth daily at bedtime. amitriptyline (ELAVIL) 50 mg tablet Take 1 tablet by mouth daily at bedtime. No current facility-administered medications for this visit. ALLERGIES No Known Allergies PAST SURGICAL HISTORY Procedure Laterality Date BACK SURGERY HX COLONOSCOPY 08/01/2022 repeat in 10 years FRACTURE SURGERY PAST SURGICAL HISTORY OF 10/06/1996 Laminectomy L3-L5 PAST SURGICAL HISTORY OF 10/06/1984 Vasectomy, testcular torsion PAST SURGICAL HISTORY OF 10/06/2005 both wrists shattered and repaired SKIN BIOPSY HX TONSILLECTOMY HX FAMILY HISTORY Problem Relation Age of Onset Cancer Father lung Heart Brother 54 PA Social History Tobacco Use Smoking status: Former Packs/day: 0.30 Years: 13.00 Additional pack years: 0.00 Total pack years: 3.90 Types: Cigarettes Smokeless tobacco: Never Tobacco comments: Quit 07/06/19 Vaping Use Vaping Use: Never used Substance Use Topics Alcohol use: Yes Comment: anywhere from 1-3 beers a day Drug use: No REVIEW OF SYSTEMS GENERAL: Negative for Malaise, significant weight loss, fever RESPIRATORY: Negative for cough, wheezing and shortness of breath CARDIOVASCULAR: Negative for chest pain, leg swelling and palpitations GI: Negative for abdominal discomfort, blood in stools or black stools and change in bowel habits : Negative for dysuria, frequency and incontinence MUSCULOSKELETAL: Negative for joint pain or swelling, back pain, and muscle pain. SKIN: Negative for lesions, rash, and itching. HEMATOLOGY/LYMPHOLOGY Negative for prolonged bleeding, bruising easily, and swollen nodes. ENDOCRINE: Negative for cold or heat intolerance, polyuria, polydipsia and goiter. NEURO: negative Physical Exam: Constitutional: Pt is a well developed 62 year old male who is alert, oriented and cooperative Eyes: Following during examination. No redness or drainage. Respiratory: RR normal and nonlabored. Even breathing. No evidence of distress or shortness of breath. Psychology: Patient is engaged during conversation. Normal affect and mood. Does not appear depressed or anxious during encounter. Vascular: Dorsalis pedis and posterior tibial pulses palpable as b/l Capillary Fill time < 5 seconds to digits 1-5 b/l Skin temperature warm to warm proximal to distal b/l Hair growth present to digits Neurological: decreased light touch/epicritic sensation Vibratory sensation absent b/l decreased protective sensation + significant neurological deficits Dermatological: Nails 1-5 b/l appear normal. Webspaces clean and dry 1-4 b/l. Skin appears well hydrated and supple. good color, texture, turgor. No open lesions present. No callosities present. Musculoskeletal/Orthopaedic: Patient has pain to palpation of b/l feet Foot type is neutral structurally AJ ROM is full with knee extended and flexed 1st MPJ is full when loaded and no pain or crepitus are noted wi (more content not included)... [facility] 07-07-2023 Note HNO ID: [id number] Author: Gifty Diop LPN Service: ? Author Type: LICENSED NURSE Type: Progress Notes Filed: 07/07/2023 9:51 PM Note Text: AMB ROOMING INTAKE FLOWSHEET DATA Pain Pain Level: 4 Description: Aching, Burning, Numbness, Throbbing, Tingling Duration Amount of Time: 15 Duration Units: Months Frequency: Continuous Intervention/Comfort measure: Reposition, Relaxation Patient presents with: Right Foot - New, Pain, Numbness Gifty Diop LPN [facility] 07-07-2023 Note HNO ID: [id number] Author: Sasha Graves RT(R) Service: Radiology Author Type: Technologist Type: Progress Notes Filed: 07/07/2023 3:24 PM Note Text: Radiology Service Progress Note PATIENT NAME: Faustino Parekr DATE OF SERVICE: July 07, 2023 TIME: 3:04 PM PATIENT IDENTITY VERIFICATION COMPLETED USING TWO (2) IDENTIFIERS: Name and Date of confirmed by patient verbally. FALL SCREENING: Has the patient had 2 falls in the last year or 1 fall with injury or currently using an Ambulatory Assistive Device (Walker, Cane, Wheelchair, Crutches, etc.)? No PATIENT GENDER DATA: Male PATIENT RELEVANT IMPLANT DATA REVIEWED: Yes RADIOLOGY DEPARTMENT: General X-ray: Exam(s) Completed: Lower Extremity X-Ray(s): Foot, Right and Wt. Bearing PERIPHERAL IV DATA: Not applicable SIGNED BY: RT Lavern(R) July 07, 2023 3:04 PM [facility] 07-07-2023 History of Presen t illness Narrative Radiology Service Progress Note PATIENT NAME: Faustino Parker DATE OF SERVICE: July 07, 2023 TIME: 3:54 PM PATIENT IDENTITY VERIFICATION COMPLETED USING TWO (2) IDENTIFIERS: Name and Date of confirmed by patient verbally. FALL SCREENING: Has the patient had 2 falls in the last year or 1 fall with injury or currently using an Ambulatory Assistive Device (Walker, Cane, Wheelchair, Crutches, etc.)? No PATIENT GENDER DATA: Male PATIENT RELEVANT IMPLANT DATA REVIEWED: Yes RADIOLOGY DEPARTMENT: General X-ray: Exam(s) Completed: Lower Extremity X-Ray(s): Ankle, Right and Wt. Bearing PERIPHERAL IV DATA: Not applicable SIGNED BY: RT Lavern(R) July 07, 2023 3:54 PM documented in this encounter [facility] 07-07-2023 History of Presen t illness Narrative Radiology Service Progress Note PATIENT NAME: Faustino Parker DATE OF SERVICE: July 07, 2023 TIME: 3:04 PM PATIENT IDENTITY VERIFICATION COMPLETED USING TWO (2) IDENTIFIERS: Name and Date of confirmed by patient verbally. FALL SCREENING: Has the patient had 2 falls in the last year or 1 fall with injury or currently using an Ambulatory Assistive Device (Walker, Cane, Wheelchair, Crutches, etc.)? No PATIENT GENDER DATA: Male PATIENT RELEVANT IMPLANT DATA REVIEWED: Yes RADIOLOGY DEPARTMENT: General X-ray: Exam(s) Completed: Lower Extremity X-Ray(s): Foot, Right and Wt. Bearing PERIPHERAL IV DATA: Not applicable SIGNED BY: RT Lavern(R) July 07, 2023 3:04 PM documented in this encounter [facility] 02-21-2023 Note HNO ID: [id number] Author: RT Elyse(R) Service: ? Author Type: Laboratory Inspector Type: Progress Notes Filed: 02/21/2023 9:11 AM Note Text: Radiology Service Progress Note PATIENT NAME: Faustino Parker DATE OF SERVICE: February 21, 2023 TIME: 8:56 AM PATIENT IDENTITY VERIFICATION COMPLETED USING TWO (2) IDENTIFIERS: Name and Date of confirmed by patient verbally. FALL SCREENING: Has the patient had 2 falls in the last year or 1 fall with injury or currently using an Ambulatory Assistive Device (Walker, Cane, Wheelchair, Crutches, etc.)? No PATIENT GENDER DATA: Male PATIENT RELEVANT IMPLANT DATA REVIEWED: Not Applicable RADIOLOGY DEPARTMENT: General X-ray: Exam(s) Completed: Spine X-Ray(s): Cervical AP / LAT / FLEX-EXT PERIPHERAL IV DATA: Not applicable SIGNED BY: RT Oswald(R) February 21, 2023 8:56 AM [facility] 02-21-2023 Note HNO ID: [id number] Author: Luis Marquez MD Service: ? Author Type: Physician Type: Progress Notes Filed: 02/21/2023 9:05 AM Note Text: [facility] New Patient Visit Note Consultation requested by Liz Ruiz for an opinion regarding Nerve pain; Jaw pain. My final recommendations will be communicated back to the requesting physician by way of shared Medical record or letter to requesting physician via US mail. History of Present Illness: Mr. Parker is a pleasant 62 year old male presenting to neuromuscular clinic for evaluation of right side head tingling. Patient reports for the last 5 months he started noticing intermittent tingling and numbness sensation over the posterior aspect of his head starting behind his ear and can go to the front to the lower part of his jaw and up to the area above the ear. It started wit burning sensation around that area and stiffness of the neck. He found it difficult to rotate his head to the right side around that time. He does not have headache or neck pain. Medications that have been tried for symptoms include amitriptyline 25 mg which helped (only on it for one week). No side effect No triggering or alleviating factors. When he is distracted he can forget about it. 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 Does it 100 times/day No associated tingling in the tongue, loss of taste, new hearing changes (always has tinnitus from welding), facial weakess or diplopia. No dysarthria, change of balance, unilateral weakness or numbness in limbs. There EtOH use (2 glasses of beurban a night) and sometime can drink more. He has stress at home related to relationship? And he covers things with drinkign which helps him to sleep. He get 3-4 hrs of good sleep due to aches and pain. Has JEFF no on CPAP. Goes to be 8pm > wakes 5 :30 wakes up frequently to uriante and from joints pain. no family history of similar illness strokes, seizures, MS In review of other systems, no constitutional symptoms like (-) fever, (-) night sweats, (-) anorexia or (-) unintentional weight loss. no recent skin rashes. He gets host flashes and getting sweat. He forgets due to lack of attention. Still drives without getting lost. Pays bill on time. 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 Was supposed to see rheumatology but did not have time to see one. He had MRI of the neck last week but report is not available PAST MEDICAL HISTORY Diagnosis Date Arthritis COPD (chronic obstructive pulmonary disease) (HCC) Hypercholesteremia 08/2015 Hypertension Impaired fasting blood sugar 08/2015 Mild mitral regurgitation 09/2015 Mild tricuspid regurgitation 09/2015 Rotator cuff disorder, right Testicular torsion age 25 Tobacco abuse PAST SURGICAL HISTORY Procedure Laterality Date BACK SURGERY HX COLONOSCOPY 08/01/2022 repeat in 10 years FRACTURE SURGERY PAST SURGICAL HISTORY OF 10/06/1996 Laminectomy L3-L5 PAST SURGICAL HISTORY OF 10/06/1984 Vasectomy, testcular torsion PAST SURGICAL HISTORY OF 10/06/2005 both wrists shattered and repaired SKIN BIOPSY HX TONSILLECTOMY HX Medications: Current Outpatient Medications Medication Sig atorvastatin (LIPITOR) 80 mg tablet Take 1 tablet by mouth daily at bedtime. lisinopril-hydroCHLOROthiazide (ZESTORETIC) 20-12.5 mg per tablet Take 1 tablet by mouth once daily. amitriptyline (ELAVIL) 25 mg tablet Take 1 tablet by mouth daily at bedtime. montelukast (SINGULAIR) 10 mg tablet Take 1 tablet by mouth daily at bedtime. fluticasone-salmeterol (ADVAIR DISKUS) 250-50 mcg/dose inhaler Inhale 1 Puff as instructed twice daily. Rinse and gargle mouth after use with water. aspirin, enteric coated (ASPIRIN, ENTERIC COATED) 81 mg EC tablet Take 81 mg by mouth once daily. tamsulosin (FLOMAX) 0.4 mg Take 1 capsule by mouth daily at bedtime. No current facility-administered medications for this visit. Allergies: See updated allergies documented below. ALLERGIES No Known Allergies Social History Tobacco Use Smoking status: Former Packs/day: 0.30 Years: 13.00 Pack years: 3.90 Types: Cigarettes Smokeless tobacco: Never Tobacco comments: Quit 07/06/19 Vaping Use Vaping Use: Never used Substance Use Topics Alcohol use: Yes Comment: anywhere from 1-3 beers a day Drug use: No Employer And Job Title: None on file Years Of Education Completed: Not specified Marital Status: Single FAMILY HISTORY Problem Relation Age of Onset Cancer Father lung Heart Brother 54 [place] Review of Systems I have confirmed and edited as necessary, the PFSH and ROS obtained by others. General Examination BP 150/86 Pulse 68 Ht 180.3 cm (5' 11 ) Wt 103.9 kg (229 lb) BMI 31.94 kg/m? General: very anxious looking, itching right side of the head (where his problem is (more content not included)... [facility] 02-13-2023 Note HNO ID: [id number] Author: Liz De La Rosa APRN.ANIME ARTIST Service: ? Author Type: Nurse Practitioner Type: Progress Notes Filed: 02/13/2023 12:54 PM Note Text: Chief Complaint Patient presents with: Numbness/Tingling: Right side of head x 5 months HPI Faustino Parker is a 62 year old male who presents here today for Above Complaints.. Today: Starting about 5 months ago and worsening as time goes on: numbness/tingling that starts to right lower back of head behind ear that radiates up toward top of head and above ear as well as behind ear into right jaw. No known insult. Used to be intermittent throughout the day, but now is constant, seems to be worse. Stopping to thing about it makes things feel worse. Will reach up and rub it, not sure if this helps or not. No ear pain or difficulty hearing. No eye concerns-recent eye exam was great. Has bilateral torn rotator cuffs. Did fall on this side of his head many years ago, but never had any trouble at all. Recently on steroid and doxycycline for sinusitis/COPD exacerbation. Sx have improved from this, steroid did not improve current symptoms at all. Past medical history, appointments, medications, allergies reviewed. Previous Medical History PAST MEDICAL HISTORY Diagnosis Date Arthritis COPD (chronic obstructive pulmonary disease) ([facility]) Hypercholesteremia 08/2015 Hypertension Impaired fasting blood sugar 08/2015 Mild mitral regurgitation 09/2015 Mild tricuspid regurgitation 09/2015 Rotator cuff disorder, right Testicular torsion age 25 Tobacco abuse Previous Surgical History PAST SURGICAL HISTORY Procedure Laterality Date BACK SURGERY HX COLONOSCOPY 08/01/2022 repeat in 10 years FRACTURE SURGERY PAST SURGICAL HISTORY OF 10/06/1996 Laminectomy L3-L5 PAST SURGICAL HISTORY OF 10/06/1984 Vasectomy, testcular torsion PAST SURGICAL HISTORY OF 10/06/2005 both wrists shattered and repaired SKIN BIOPSY HX TONSILLECTOMY HX Family History FAMILY HISTORY Problem Relation Age of Onset Cancer Father lung Heart Brother 54 PA Patient Allergies ALLERGIES No Known Allergies Current Medications Current Outpatient Medications on File Prior to Visit Medication Sig lisinopril-hydroCHLOROthiazide (PRINZIDE,ZESTORETIC) 20-12.5 mg per tablet Take 1 tablet by mouth once daily. montelukast (SINGULAIR) 10 mg tablet Take 1 tablet by mouth daily at bedtime. atorvastatin (LIPITOR) 80 mg tablet take 1 tablet by mouth at bedtime fluticasone-salmeterol (ADVAIR DISKUS) 250-50 mcg/dose inhaler Inhale 1 Puff as instructed twice daily. Rinse and gargle mouth after use with water. aspirin, enteric coated (ASPIRIN, ENTERIC COATED) 81 mg EC tablet Take 81 mg by mouth once daily. tamsulosin (FLOMAX) 0.4 mg Take 1 capsule by mouth daily at bedtime. meloxicam (MOBIC) 15 mg tablet Take 1 tablet by mouth once daily. Take with food. (Patient not taking: Reported on 02/13/2023) No current facility-administered medications on file prior to visit. Social History Social History Tobacco Use Smoking status: Former Packs/day: 0.30 Years: 13.00 Pack years: 3.90 Types: Cigarettes Smokeless tobacco: Never Tobacco comments: Quit 07/06/19 Vaping Use Vaping Use: Never used Substance Use Topics Alcohol use: Yes Comment: anywhere from 1-3 beers a day Drug use: No Review of Symptoms REVIEW OF SYSTEMS See HPI, otherwise negative EXAM: BP 118/78 (BP Site: Left Arm, BP Position: Sitting, BP Cuff Size: Regular Adult) Pulse 82 Resp 16 Wt 102.2 kg (225 lb 6.4 oz) SpO2 96% BMI 31.07 kg/m? General Appearance: Well appearing, alert, in no acute distress, well-hydrated, well nourished.. Skin: Skin color, texture, turgor normal, no suspicious rashes or lesions. Head: Normocephalic, no masses, lesions, tenderness or abnormalities. Eyes: Anicteric sclera. Pupils are equally round and reactive to light. Extraocular movements are intact. . Ears: External ears normal, canals clear. Oropharynx: Lips, mucosa, and tongue normal, teeth and gums normal, oropharynx normal. Neck: Supple, no adenopathy; thyroid symmetric, normal size, no bruits. Lungs: Lungs clear to auscultation. No wheezing, rhonchi, rales.. Heart: RRR without murmur, gallop, or rubs. No ectopy. Neurologic: Gait normal. Reflexes normal and symmetric. Sensation grossly intact.. Health Maintenance List BP CONTROLLED (<130/80) Never done ALPHA-1 ANTITRYPSIN DEFICIENCY SCREENING Never done PNEUMOCOCCAL(2 - PCV) due on 07/12/2019 COVID-19 VACCINE(3 - Booster for Moderna series) due on 01/02/2022 DEPRESSION ASSESSMENT Never done INFLUENZA(Season Ended) due on 06/06/2023 ANNUAL PCP TEAM CHRONIC DISEASE VISIT due on 01/30/2024 DTAP,TDAP,TD(3 - Td or Tdap) due on 03/20/2024 DIABETES SCREEN due on 07/08/2025 LIPID SCREEN due on 07/08/2027 PROSTATE CANCER SCREENING DISCUSSION due on 07/08/2027 COLORECTAL CANCER SCREENING du (more content not included)... [facility] 01-29-2023 Note HNO ID: [id number] Author: Alissa Crouch APRN.ANIME ARTIST Service: ? Author Type: Nurse Practitioner Type: Progress Notes Filed: 01/29/2023 10:08 PM Note Text: This is a 62 year old male who presents today with: Patient presents with: Acute Visit: Head/chest congestion greater than 2 weeks; using inhalers more frequently HISTORY OF PRESENT ILLNESS: Faustino Parker is a 62 year old male. Patient presents with: Acute Visit: Head/chest congestion greater than 2 weeks; using inhalers more frequently Head/chest congestion. Has been going on for a couple of weeks. Coughs and brings it up -- white, occ spots of yellow. No fevers/chills. Started out as head congestion. Refers moved to the chest after two days. No ear pain. Hoarse voice. Headaches now and then. No n/v/d. He is using tylenol and advair inhaler. Hx of COPD. PAST MEDICAL HISTORY: PAST MEDICAL HISTORY Diagnosis Date Arthritis COPD (chronic obstructive pulmonary disease) (HCC) Hypercholesteremia 08/2015 Hypertension Impaired fasting blood sugar 08/2015 Mild mitral regurgitation 09/2015 Mild tricuspid regurgitation 09/2015 Rotator cuff disorder, right Testicular torsion age 25 Tobacco abuse PAST SURGICAL HISTORY Procedure Laterality Date BACK SURGERY HX COLONOSCOPY 08/01/2022 repeat in 10 years FRACTURE SURGERY PAST SURGICAL HISTORY OF 10/06/1996 Laminectomy L3-L5 PAST SURGICAL HISTORY OF 10/06/1984 Vasectomy, testcular torsion PAST SURGICAL HISTORY OF 10/06/2005 both wrists shattered and repaired SKIN BIOPSY HX TONSILLECTOMY HX ALLERGIES Patient has no known allergies. MEDICATIONS Current Outpatient Medications Medication Sig lisinopril-hydroCHLOROthiazide (PRINZIDE,ZESTORETIC) 20-12.5 mg per tablet Take 1 tablet by mouth once daily. montelukast (SINGULAIR) 10 mg tablet Take 1 tablet by mouth daily at bedtime. atorvastatin (LIPITOR) 80 mg tablet take 1 tablet by mouth at bedtime fluticasone-salmeterol (ADVAIR DISKUS) 250-50 mcg/dose inhaler Inhale 1 Puff as instructed twice daily. Rinse and gargle mouth after use with water. aspirin, enteric coated (ASPIRIN, ENTERIC COATED) 81 mg EC tablet Take 81 mg by mouth once daily. tamsulosin (FLOMAX) 0.4 mg Take 1 capsule by mouth daily at bedtime. meloxicam (MOBIC) 15 mg tablet Take 1 tablet by mouth once daily. Take with food. albuterol HFA (PROAIR HFA) 90 mcg/actuation inhaler Inhale 2 Puffs as instructed every 4 hours as needed for wheezing/shortness of breath. No current facility-administered medications for this visit. FAMILY HISTORY Problem Relation Age of Onset Cancer Father lung Heart Brother 54 PA Social History Tobacco Use Smoking status: Former Packs/day: 0.30 Years: 13.00 Pack years: 3.90 Types: Cigarettes Smokeless tobacco: Never Tobacco comments: Quit 07/06/19 Vaping Use Vaping Use: Never used Substance Use Topics Alcohol use: Yes Comment: anywhere from 1-3 beers a day Drug use: No EXAM: BP 132/92 Pulse 73 Resp 18 SpO2 94% PHYSICAL EXAM: General Appearance: Well appearing, alert, in no acute distress, well-hydrated, well nourished.. Skin: Skin color, texture, turgor normal, no suspicious rashes or lesions. Head: Normocephalic, no masses, lesions, tenderness or abnormalities. Eyes: Anicteric sclera. Pupils are equally round and reactive to light. Extraocular movements are intact. . Ears: External ears normal, canals clear. Oropharynx: Lips, mucosa, and tongue normal, teeth and gums normal, oropharynx normal. Neck: Supple, no adenopathy; thyroid symmetric, normal size, no bruits. Lungs: Lungs clear to auscultation. No wheezing, rhonchi, rales.. Heart: RRR without murmur, gallop, or rubs. No ectopy. Neurologic: Gait normal. ASSESSMENT/PLAN: 1. Sinobronchitis - ICD9: 473.9, 490, ICD10: J32.9, J40 (primary diagnosis) - Will begin treatment with Doxycycline - The patient should also be given OTC decongestants prn for the first 5-7 days of treatment. - Supportive care with plenty of fluids, rest, and analgesia prn. - Follow up in one week if symptoms persist or worsen. - DOXYCYCLINE HYCLATE 100 MG TABLET - PREDNISONE 10 MG TABLET 2. COPD with exacerbation (HCC) - ICD9: 491.21, ICD10: J44.1 Continue advair. - PREDNISONE 10 MG TABLET Discussed treatment plan and patient voices understanding. Patient's questions answered appropriately. Medications and potential side effects were discussed and patient voices understanding. Return to the office as scheduled or as needed for worsening/no improvement. Alissa Crouch APRN.CNP [facility] 01-29-2023 Instructions Alissa Crouch APRN.CNP - 01/29/2023 4:23 PM EDT Start the doxycycline -- one pill twice daily X 10 days. Start the prednisone The prednisone taper will be 4 tablets for 3 days; 3 tablets for 3 days; 2 tablets for 3 days; then 1 tablet for 3 days. Please do no use other anti-inflammatories (like ibuprofen, aleve, naproxen, etc) while you are on this medication. documented in this encounter [facility] 01-29-2023 History of Presen t illness Narrative This is a 62 year old male who presents today with: Patient presents with: Acute Visit: Head/chest congestion greater than 2 weeks; using inhalers more frequently HISTORY OF PRESENT ILLNESS: Faustino Parker is a 62 year old male. Patient presents with: Acute Visit: Head/chest congestion greater than 2 weeks; using inhalers more frequently Head/chest congestion. Has been going on for a couple of weeks. Coughs and brings it up -- white, occ spots of yellow. No fevers/chills. Started out as head congestion. Refers moved to the chest after two days. No ear pain. Hoarse voice. Headaches now and then. No n/v/d. He is using tylenol and advair inhaler. Hx of COPD. PAST MEDICAL HISTORY: PAST MEDICAL HISTORY Diagnosis Date Arthritis COPD (chronic obstructive pulmonary disease) (HCC) Hypercholesteremia 08/2015 Hypertension Impaired fasting blood sugar 08/2015 Mild mitral regurgitation 09/2015 Mild tricuspid regurgitation 09/2015 Rotator cuff disorder, right Testicular torsion age 25 Tobacco abuse PAST SURGICAL HISTORY Procedure Laterality Date BACK SURGERY HX COLONOSCOPY 08/01/2022 repeat in 10 years FRACTURE SURGERY PAST SURGICAL HISTORY OF 10/06/1996 Laminectomy L3-L5 PAST SURGICAL HISTORY OF 10/06/1984 Vasectomy, testcular torsion PAST SURGICAL HISTORY OF 10/06/2005 both wrists shattered and repaired SKIN BIOPSY HX TONSILLECTOMY HX ALLERGIES Patient has no known allergies. MEDICATIONS Current Outpatient Medications Medication Sig lisinopril-hydroCHLOROthiazide (PRINZIDE,ZESTORETIC) 20-12.5 mg per tablet Take 1 tablet by mouth once daily. montelukast (SINGULAIR) 10 mg tablet Take 1 tablet by mouth daily at bedtime. atorvastatin (LIPITOR) 80 mg tablet take 1 tablet by mouth at bedtime fluticasone-salmeterol (ADVAIR DISKUS) 250-50 mcg/dose inhaler Inhale 1 Puff as instructed twice daily. Rinse and gargle mouth after use with water. aspirin, enteric coated (ASPIRIN, ENTERIC COATED) 81 mg EC tablet Take 81 mg by mouth once daily. tamsulosin (FLOMAX) 0.4 mg Take 1 capsule by mouth daily at bedtime. meloxicam (MOBIC) 15 mg tablet Take 1 tablet by mouth once daily. Take with food. albuterol HFA (PROAIR HFA) 90 mcg/actuation inhaler Inhale 2 Puffs as instructed every 4 hours as needed for wheezing/shortness of breath. No current facility-administered medications for this visit. FAMILY HISTORY Problem Relation Age of Onset Cancer Father lung Heart Brother 54 PA Social History Tobacco Use Smoking status: Former Packs/day: 0.30 Years: 13.00 Pack years: 3.90 Types: Cigarettes Smokeless tobacco: Never Tobacco comments: Quit 07/06/19 Vaping Use Vaping Use: Never used Substance Use Topics Alcohol use: Yes Comment: anywhere from 1-3 beers a day Drug use: No EXAM: BP 132/92 Pulse 73 Resp 18 SpO2 94% PHYSICAL EXAM: General Appearance: Well appearing, alert, in no acute distress, well-hydrated, well nourished.. Skin: Skin color, texture, turgor normal, no suspicious rashes or lesions. Head: Normocephalic, no masses, lesions, tenderness or abnormalities. Eyes: Anicteric sclera. Pupils are equally round and reactive to light. Extraocular movements are intact. . Ears: External ears normal, canals clear. Oropharynx: Lips, mucosa, and tongue normal, teeth and gums normal, oropharynx normal. Neck: Supple, no adenopathy; thyroid symmetric, normal size, no bruits. Lungs: Lungs clear to auscultation. No wheezing, rhonchi, rales.. Heart: RRR without murmur, gallop, or rubs. No ectopy. Neurologic: Gait normal. ASSESSMENT/PLAN: 1. Sinobronchitis - ICD9: 473.9, 490, ICD10: J32.9, J40 (primary diagnosis) - Will begin treatment with Doxycycline - The patient should also be given OTC decongestants prn for the first 5-7 days of treatment. - Supportive care with plenty of fluids, rest, and analgesia prn. - Follow up in one week if symptoms persist or worsen. - DOXYCYCLINE HYCLATE 100 MG TABLET - PREDNISONE 10 MG TABLET 2. COPD with exacerbation (HCC) - ICD9: 491.21, ICD10: J44.1 Continue advair. - PREDNISONE 10 MG TABLET Discussed treatment plan and patient voices understanding. Patient's questions answered appropriately. Medications and potential side effects were discussed and patient voices understanding. Return to the office as scheduled or as needed for worsening/no improvement. Alissa Crouch APRN.ASHUTOSH documented in this encounter [facility] 10-25-2022 Miscellaneous Notes [place]--07/08/22 Nov--nothing scheduled Last refill--08/01/22 30 with 0 refills Last labs--07/08/22 Patient has been identified by name and date of : Yes Requested Prescriptions Pending Prescriptions Disp Refills montelukast (SINGULAIR) 10 mg tablet 90 tablet 3 Sig: Take 1 tablet by mouth daily at bedtime. RX INSTRUCTIONS: Please fill as soon as possible Patient aware RX will be sent to pharmacy. No need to notify patient. Dhara Fiore [facility] documented in this encounter [facility] 10-14-2022 Miscellaneous Notes Last office visit: 07/08/22 F/u scheduled: none Kimberly Tan Ma documented in this encounter [facility] 09-11-2022 Miscellaneous Notes Patient has been identified by name and date of : Yes Last office visit in this department: 07/08/2022 Labs-07/08/22 NOV-10/24/22 med filled 05/22/22 RX INSTRUCTIONS: Patient aware RX will be sent to pharmacy. No need to notify patient. Patient phones requesting refills as follows: Requested Prescriptions Pending Prescriptions Disp Refills fluticasone-salmeterol (ADVAIR DISKUS) 250-50 mcg/dose inhaler 1 Each 3 Sig: Inhale 1 Puff as instructed twice daily. Rinse and gargle mouth after use with water. Please review and advise. Ema Henry Pss documented in this encounter [facility] 08-05-2022 Miscellaneous Notes called and requests referral, demographics, insurance cards, labs, x-rays and office visit be faxed to Dr. Reno, Spinning [employer] Operator at [phone]. Done. Alexia Gerard LPN documented in this encounter [facility] 08-01-2022 Nurse Note Pt passing some gas rectally. Miryam Giraldo, YUNIOR Pt received in PACU. Pt extremely drowsy, but arouses fairly easily. Appears comfortable. Abd slightly firm and slightly distended. Miryam Giraldo, RN documented in this encounter [facility] 08-01-2022 History and physical note Chief Complaint Patient presents with: Yearly Exam Back Pain: Right side x 2/3 weeks HPI Faustino Parker is a 61 year old male who presents here today for Above Complaints.. Today: Pain to right lower side/hip area. Is stabbing, 8-9/10 when it happens. Alleviated by urination or bowel movement. No blood in urine or stool. Has been utilizing Tylenol prn-no other interventions. CT at outside facility that was reportedly negative. Does have back hx in 1996, but has not had any back pain since then. Generalized joint pain-specifically in his hands, but also generalized. Middle left trigger finger. Concern about a couple areas on his skin. Is scheduled with [facility] in 2 days. Past medical history, appointments, medications, allergies reviewed. Previous Medical History PAST MEDICAL HISTORY PAST MEDICAL HISTORY Diagnosis Date Hypercholesteremia 08/2015 Hypertension Impaired fasting blood sugar 08/2015 Mild mitral regurgitation 09/2015 Mild tricuspid regurgitation 09/2015 Rotator cuff disorder, right Testicular torsion age 25 Tobacco abuse Previous Surgical History PAST SURGICAL HISTORY PAST SURGICAL HISTORY Procedure Laterality Date PAST SURGICAL HISTORY OF 1996 Laminectomy L3-L5 PAST SURGICAL HISTORY OF 1984 Vasectomy, testcular torsion PAST SURGICAL HISTORY OF 2005 both wrists shattered and repaired Family History FAMILY HISTORY FAMILY HISTORY Problem Relation Age of Onset Cancer Father lung Heart Brother 54 PA Patient Allergies ALLERGIES ALLERGIES No Known Allergies Current Medications Current Outpatient Medications on File Prior to Visit Medication Sig atorvastatin (LIPITOR) 40 mg tablet Take 1 tablet by mouth once daily. montelukast (SINGULAIR) 10 mg tablet Take 1 tablet by mouth daily at bedtime. fluticasone-salmeterol (ADVAIR DISKUS) 250-50 mcg/dose inhaler Inhale 1 Puff as instructed twice daily. Rinse and gargle mouth after use with water. tamsulosin (FLOMAX) 0.4 mg Take 1 capsule by mouth daily at bedtime. lisinopril-hydroCHLOROthiazide (PRINZIDE,ZESTORETIC) 20-12.5 mg per tablet Take 1 tablet by mouth once daily. albuterol HFA (PROAIR HFA) 90 mcg/actuation inhaler Inhale 2 Puffs as instructed every 4 hours as needed for wheezing/shortness of breath. No current facility-administered medications on file prior to visit. Social History SOCIAL HISTORY Social History Tobacco Use Smoking status: Former Packs/day: 0.30 Years: 13.00 Pack years: 3.90 Types: Cigarettes Smokeless tobacco: Never Tobacco comments: Quit 07/06/19 Vaping Use Vaping Use: Never used Substance Use Topics Alcohol use: Yes Comment: 8 to 10 beers a week Drug use: No Review of Symptoms REVIEW OF SYSTEMS See HPI, otherwise negative EXAM: BP 132/86 (BP Site: Left Arm, BP Position: Sitting, BP Cuff Size: Regular Adult) Pulse 71 Resp 16 Ht 181.4 cm (5' 11.42 ) Wt 98.1 kg (216 lb 3.2 oz) SpO2 97% BMI 29.80 kg/m General Appearance: Well appearing, alert, in no acute distress, well-hydrated, well nourished. and Overweight. Back: no pain to palpation of left lower back to left hip area Lungs: Lungs clear to auscultation. No wheezing, rhonchi, rales.. Heart: RRR without murmur, gallop, or rubs. No ectopy. Lymph Nodes: No cervical lymphadenopathy and No supraclavicular lymphadenopathy. Health Maintenance List BP CONTROLLED (<130/80) Never done COLORECTAL CANCER SCREENING due on 07/20/2021 DEPRESSION ASSESSMENT Never done COVID-19 VACCINE(2 - Moderna series) due on 11/07/2021 INFLUENZA(1) due on 06/06/2022 ANNUAL PCP TEAM CHRONIC DISEASE VISIT due on 12/03/2022 DTAP,TDAP,TD(3 - Td or Tdap) due on 03/20/2024 DIABETES SCREEN due on 03/19/2025 PROSTATE CANCER SCREENING DISCUSSION due on 01/01/2026 LIPID SCREEN due on 03/19/2027 HEPATITIS C SCREENING Completed HIV SCREENING Completed SHINGRIX VACCINE Completed Data reviewed Previous records, office notes ASSESSMENT/PLAN: 1. Acute right-sided low back pain without sciatica - ICD9: 724.2, ICD10: M54.50 (primary diagnosis) Suspect muscular. R/o low back or hip etiology. - XR LUMBAR GENERAL 3V AP/LAT/L5-S1 - XR HIP GENERAL 3V PELV/AP/LAT RIGHT - RHEUMATOID FACTOR BL - CORBY BLOOD - MELOXICAM 15 MG TABLET - UA WITH CULTURE IF INDICATED 2. Hip pain - ICD9: 719.45, ICD10: M25.559 R/o low back or hip etiology. - XR LUMBAR GENERAL 3V AP/LAT/L5-S1 - XR HIP GENERAL 3V PELV/AP/LAT RIGHT - RHEUMATOID FACTOR BL - CORBY BLOOD - MELOXICAM 15 MG TABLET - UA WITH CULTURE IF INDICATED 3. Pain in joint, multiple sites - ICD9: 719.49, ICD10: M25.50 Suspect osteoarthritis. R/o RA. Consider fibromyalgia, rheumatology consult. Meloxicam once daily. - CBC - COMP METABOLIC PANEL - SED RATE WESTERGREN - C-REACTIVE PROTEIN (CRP) - RHEUMATOID FACTOR BL - CORBY BLOOD - MELOXICAM 15 MG TABLET 4. Hypertension, essential - ICD9: 401.9, ICD10: I10 - fair control - Continue current medication(s) - Recommended regular aerobic exercise. - Goal of BP <130/80 - CBC - COMP METABOLIC PANEL 5. Trigger middle finger of left hand - ICD9: 727.03, ICD10: M65.332 Referral sent to [facility] per patient request. - CONSULT TO ORTHOPAEDICS 6. Hyperlipidemia, mixed - ICD9: 272.2, ICD10: E78.2 Reassess labs. - LIPID PANEL BASIC 7. Benign prostatic hyperplasia with urinary frequency - ICD9: 600.01, 788.41, ICD10: N40.1, R35.0 Reassess labs. R/o as contributing cause of low back/right hip pain. - PSA FREE 8. History of elevated glucose - ICD9: V12.29, ICD10: Z86.39 Reassess labs. - CBC - COMP METABOLIC PANEL - HGB A1C 9. Seasonal allergies - ICD9: 477.9, ICD10: J30.2 Continue current medications. 10. Screening for colon cancer - ICD9: V76.51, ICD10: Z12.11 R/o as contributing cause of right low back/right hip pain. - COLONOSCOPY SCREENING 11. Special screening for malignant neoplasms, colon - ICD9: V76.51, ICD10: Z12.11 R/o as contributing cause of right low back/right hip pain. - COLONOSCOPY SCREENING Liz De La Rosa APRN.ANIME ARTIST UPDATED HISTORY AND PHYSICAL EXAMINATION SERVICE DATE: 08/01/2022 SERVICE TIME: 11:46 AM PHYSICAL EXAM MUST BE COMPLETED ON ADMISSION The History and Physical (completed in the past 30 days) has been reviewed and the patient has been examined. The contents accurately reflect the patient's condition with the following additions or revisions since the H&P was completed. Examination indicates no changes. This H&P can be found in the attached. SIGNATURE: Tony Mccrary III, MD PATIENT NAME: Faustino Parker DATE: August 01, 2022 TIME: 11:46 AM documented in this encounter [facility] 08-01-2022 Miscellaneous Notes Records show on Prescription Mobic, there should be a valid rx at pt's pharmacy. Patient has been identified by name and date of : Yes Patient phones for refill(s): Requested Prescriptions Pending Prescriptions Disp Refills lisinopril-hydroCHLOROthiazide (PRINZIDE,ZESTORETIC) 20-12.5 mg per tablet 90 tablet 0 Sig: Take 1 tablet by mouth once daily. montelukast (SINGULAIR) 10 mg tablet 30 tablet 0 Sig: Take 1 tablet by mouth daily at bedtime. Refused Prescriptions Disp Refills meloxicam (MOBIC) 15 mg tablet 30 tablet 1 Sig: Take 1 tablet by mouth once daily. Take with food. Date of last office visit in primary care: 07/08/22 Last 2 Encounter Wt Readings: Date: Wt: 07/08/2022 98.1 kg (216 lb 3.2 oz) 12/03/2021 100.2 kg (221 lb) Previous labs/tests for medication: Blood Pressure: BUN (mg/dL) Date Value 07/08/2022 19 01/01/2021 21 Sodium (mmol/L) Date Value 07/08/2022 133 01/01/2021 137 Last 1 Encounter BP Readings: Date: BP: 07/08/2022 132/86 Thank you. Alexia Gerard LPN documented in this encounter [facility] 07-17-2022 Miscellaneous Notes Contacted patient, scheduled consult 10-24-2022 Ania Katja Cordova documented in this encounter [facility] 07-08-2022 Miscellaneous Notes Spoke with pt gave information provided. Pt voices understanding. Please let Faustino know that I received his xray results. His low back does have some degenerative/arthritis changes. 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 This can cause pain, but I am unsure if this would be causing his current pain. I placed an orthopedic consult during his visit for trigger finger, but doesn't look like he has this scheduled yet. Can it be added to his visit that I would like this shallow right acetabulum result assessed as well? Thanks. Liz De La Rosa APRN.CNP documented in this encounter [facility] 07-08-2022 Miscellaneous Notes Referral faxed to [facility] on 07/08 ADAIR Edwards Ma Please fax patient's ortho referral to [facility]. Liz De La Rosa APRN.CNP documented in this encounter [facility] 07-08-2022 Instructions Liz De La Rosa APRN.CNP - 07/08/2022 9:45 AM EDT Images from the original note were not included. Have your labs drawn. Schedule with orthopedics for your trigger finger. Have your xrays completed of your right hip and lower back. Start the meloxicam (Mobic) medication. This is an antiinflammatory and hoping will help your joint pain. Schedule your colonoscopy. Bowel Preparation Instructions for: Miralax-Gatorade Preparations IF YOU DO NOT FOLLOW THESE DIRECTIONS, YOUR COLONOSCOPY WILL BE CANCELLED. [place] Instructions: Your bowel must be empty so that your doctor can clearly view your colon. Follow all of the instructions in this handout EXACTLY as they are written. Do NOT eat any solid food the ENTIRE day before your colonoscopy. Buy your bowel preparation at least 5 days before your colonoscopy. Four (4) Dulcolax laxative tablets containing 5mg of bisacodyl each (NOT Dulcolax stool softener) One (1) 8.3oz. bottle Miralax (238 grams) or generic equivalent 2 x 32oz. Bottles of Gatorade (NOT RED) Diabetic Patients: Use G2 (Gatorade 2) TRANSPORTATION on the Day of Your Exam A responsible adult MUST be present with you at Check In prior to your colonoscopy and REMAIN in the endoscopy area until you are discharged. You are NOT ALLOWED to drive, take a taxi or bus, or leave the Endoscopy Center ALONE. If you do not have a responsible driver material handler (family member or friend) with you to take you home, your exam cannot be done with sedation and will be cancelled. Please bring a list of all of your current medications, including any Arod-ywy-Huampbe medications with you. Medications If you take insulin, diabetic medications or blood thinners such as Coumadin (warfarin), Plavix (clopidogrel), Ticlid (ticlopidine hydrochloride), Agrylin (anagrelide), Xarelto (Rivaroxaban), Pradaxa (Dabigatran), Eliquis (Apixaban), and Effient (Prasugrel). You MUST call the doctors who orders those medicines for instructions on altering the dosage before your colonoscopy. All other medications should be taken the day of the exam with a sip of water including ASPIRIN. Five (5) Days Before Your Colonoscopy Do NOT take medicines that stop diarrhea - such as Imodium, Kaopectate, or Pepto Bismol. Do NOT take fiber supplements - such as Metamucil, Citrucel, or Perdiem. Do NOT take products that contain iron - such as multi-vitamins (the label lists what is in the products). Three (3) Days Before Your Colonoscopy Do NOT eat high-fiber foods - such as popcorn, beans, seeds (flax, sunflower, quinoa), multigrain bread, nuts, salad/vegetables, or fresh and dried fruit. 1 Bowel Preparation Instructions for: Miralax-Gatorade Preparations One (1) Day Before Your Colonoscopy Only drink clear liquids the ENTIRE DAY before your colonoscopy. Do NOT eat any solid foods. Drink at least 8 ounces of clear liquids every hour after waking up. The clear liquids you can drink include: Clear Liquid (NO RED LIQUIDS) DO NOT DRINK Gatorade, Pedialyte or Powerade Clear broth or bouillon Coffee or tea (no milk or non-dairy creamer) Carbonated and non-carbonated soft drinks Norbert-Aid or other fruit flavored drinks Strained fruit juices (no pulp) Jell-O, popsicles, hard candy Water Alcohol Milk or non-dairy creamers Noodles or vegetables in soup Juice with pulp Liquid you cannot see through Do not use tobacco/vaping products Mix 1/2 of Miralax bottle (119 grams) in each 32 ounces of Gatorade bottle until dissolved. Keep cool in the refrigerator. DO NOT ADD ICE. The bowel preparation solution will be consumed in two parts. Part 1 5:00 PM - Evening before your colonoscopy Take 4 Dulcolax tablets. 6 PM - Evening before your colonoscopy Drink 32 oz. of the mixed solution. Drink an 8 oz. glass of bowel preparation every 15 minutes for a total of 4 glasses. Fifteen (15) minutes later, drink an 8 oz. glass of of clear liquids every 15 minutes for a total of 2 glasses. You may continue to drink clear liquids till midnight. Part 2 On the day of your colonoscopy you may drink clear liquids up to (three) 3 hours prior to procedure. 4 1/2 hours before your colonoscopy Take another 32 oz. bottle of mixed solution. Drink an 8 oz. glass of bowel prep every 15 minutes for a total of 4 glasses. Fifteen (15) minutes later, drink an 8 oz. glass of clear liquids every 15 minutes for a total of 2 glasses. You may continue to drink clear liquids up to (three) 3 hours before your exam. 2 09/2019 documented in this encounter [facility] 07-08-2022 History of Presen t illness Narrative Chief Complaint Patient presents with: Yearly Exam Back Pain: Right side x 2/3 weeks HPI Faustino Parker is a 61 year old male who presents here today for Above Complaints.. Today: Pain to right lower side/hip area. Is stabbing, 8-9/10 when it happens. Alleviated by urination or bowel movement. No blood in urine or stool. Has been utilizing Tylenol prn-no other interventions. CT at outside facility that was reportedly negative. Does have back hx in 1996, but has not had any back pain since then. Generalized joint pain-specifically in his hands, but also generalized. Middle left trigger finger. Concern about a couple areas on his skin. Is scheduled with [facility] in 2 days. Past medical history, appointments, medications, allergies reviewed. 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 montelukast (SINGULAIR) 10 mg tablet Take 1 tablet by mouth daily at bedtime. fluticasone-salmeterol (ADVAIR DISKUS) 250-50 mcg/dose inhaler Inhale 1 Puff as instructed twice daily. Rinse and gargle mouth after use with water. tamsulosin (FLOMAX) 0.4 mg Take 1 capsule by mouth daily at bedtime. lisinopril-hydroCHLOROthiazide (PRINZIDE,ZESTORETIC) 20-12.5 mg per tablet Take 1 tablet by mouth once daily. albuterol HFA (PROAIR HFA) 90 mcg/actuation inhaler Inhale 2 Puffs as instructed every 4 hours as needed for wheezing/shortness of breath. No current facility-administered medications on file prior to visit. Social History Social History Tobacco Use Smoking status: Former Packs/day: 0.30 Years: 13.00 Pack years: 3.90 Types: Cigarettes Smokeless tobacco: Never Tobacco comments: Quit 07/06/19 Vaping Use Vaping Use: Never used Substance Use Topics Alcohol use: Yes Comment: 8 to 10 beers a week Drug use: No Review of Symptoms REVIEW OF SYSTEMS See HPI, otherwise negative EXAM: BP 132/86 (BP Site: Left Arm, BP Position: Sitting, BP Cuff Size: Regular Adult) Pulse 71 Resp 16 Ht 181.4 cm (5' 11.42 ) Wt 98.1 kg (216 lb 3.2 oz) SpO2 97% BMI 29.80 kg/m General Appearance: Well appearing, alert, in no acute distress, well-hydrated, well nourished. and Overweight. Back: no pain to palpation of left lower back to left hip area Lungs: Lungs clear to auscultation. No wheezing, rhonchi, rales.. Heart: RRR without murmur, gallop, or rubs. No ectopy. Lymph Nodes: No cervical lymphadenopathy and No supraclavicular lymphadenopathy. Health Maintenance List BP CONTROLLED (<130/80) Never done COLORECTAL CANCER SCREENING due on 07/20/2021 DEPRESSION ASSESSMENT Never done COVID-19 VACCINE(2 - Moderna series) due on 11/07/2021 INFLUENZA(1) due on 06/06/2022 ANNUAL PCP TEAM CHRONIC DISEASE VISIT due on 12/03/2022 DTAP,TDAP,TD(3 - Td or Tdap) due on 03/20/2024 DIABETES SCREEN due on 03/19/2025 PROSTATE CANCER SCREENING DISCUSSION due on 01/01/2026 LIPID SCREEN due on 03/19/2027 HEPATITIS C SCREENING Completed HIV SCREENING Completed SHINGRIX VACCINE Completed Data reviewed Previous records, office notes ASSESSMENT/PLAN: 1. Acute right-sided low back pain without sciatica - ICD9: 724.2, ICD10: M54.50 (primary diagnosis) Suspect muscular. R/o low back or hip etiology. - XR LUMBAR GENERAL 3V AP/LAT/L5-S1 - XR HIP GENERAL 3V PELV/AP/LAT RIGHT - RHEUMATOID FACTOR BL - CORBY BLOOD - MELOXICAM 15 MG TABLET - UA WITH CULTURE IF INDICATED 2. Hip pain - ICD9: 719.45, ICD10: M25.559 R/o low back or hip etiology. - XR LUMBAR GENERAL 3V AP/LAT/L5-S1 - XR HIP GENERAL 3V PELV/AP/LAT RIGHT - RHEUMATOID FACTOR BL - CORBY BLOOD - MELOXICAM 15 MG TABLET - UA WITH CULTURE IF INDICATED 3. Pain in joint, multiple sites - ICD9: 719.49, ICD10: M25.50 Suspect osteoarthritis. R/o RA. Consider fibromyalgia, rheumatology consult. Meloxicam once daily. - CBC - COMP METABOLIC PANEL - SED RATE WESTERGREN - C-REACTIVE PROTEIN (CRP) - RHEUMATOID FACTOR BL - CORBY BLOOD - MELOXICAM 15 MG TABLET 4. Hypertension, essential - ICD9: 401.9, ICD10: I10 - fair control - Continue current medication(s) - Recommended regular aerobic exercise. - Goal of BP <130/80 - CBC - COMP METABOLIC PANEL 5. Trigger middle finger of left hand - ICD9: 727.03, ICD10: M65.332 Referral sent to [facility] per patient request. - CONSULT TO ORTHOPAEDICS 6. Hyperlipidemia, mixed - ICD9: 272.2, ICD10: E78.2 Reassess labs. - LIPID PANEL BASIC 7. Benign prostatic hyperplasia with urinary frequency - ICD9: 600.01, 788.41, ICD10: N40.1, R35.0 Reassess labs. R/o as contributing cause of low back/right hip pain. - PSA FREE 8. History of elevated glucose - ICD9: V12.29, ICD10: Z86.39 Reassess labs. - CBC - COMP METABOLIC PANEL - HGB A1C 9. Seasonal allergies - ICD9: 477.9, ICD10: J30.2 Continue current medications. 10. Screening for colon cancer - ICD9: V76.51, ICD10: Z12.11 R/o as contributing cause of right low back/right hip pain. - COLONOSCOPY SCREENING 11. Special screening for malignant neoplasms, colon - ICD9: V76.51, ICD10: Z12.11 R/o as contributing cause of right low back/right hip pain. - COLONOSCOPY SCREENING Liz De La Rosa APRN.ANIME ARTIST documented in this encounter [facility] 06-11-2022 Miscellaneous Notes Last office visit: 12/03/21 F/u scheduled: none Kimberly Tan Ma Patient has been identified by name and date of : Yes Requested Prescriptions Pending Prescriptions Disp Refills montelukast (SINGULAIR) 10 mg tablet 30 tablet 0 Sig: Take 1 tablet by mouth daily at bedtime. RX INSTRUCTIONS: Patient aware RX will be sent to pharmacy. No need to notify patient. Dhara Fiore [employer] documented in this encounter [facility] 04-22-2022 Miscellaneous Notes Patient is out of state for the next 3 months for work. He is asking for his lisinopril to be sent to the [facility] in [place], [place]. Patient will schedule a visit when he knows when he'll be back Pharmacy verified in Epic Patient has been identified by name and date of : Yes Patient aware RX will be sent to pharmacy. No need to notify patient. Patient phones for refill(s): Pending Prescriptions Disp Refills LISINOPRIL 20 MG-HYDROCHLOROTHIAZIDE 12.5 MG TABLET 90 tablet 0 Sig: Take 1 tablet by mouth once daily. LINA: No Date of last office visit : 12/03/2021 Date of next office visit : Visit date not found Last 2 Encounter Wt Readings: Date: Wt: 12/03/2021 100.2 kg (221 lb) 08/25/2020 103 kg (227 lb) Not applicable Please advise. Marianela Cadet documented in this encounter [facility] 03-18-2022 Miscellaneous Notes Pt called and is notified of providers message and instructions. Pt voices understanding. He said he will get in here tomorrow to get labs drawn, because After that he will be out of town for 3 months for work. Hayde Bergeron RN Left a message for pt to call the office and ask to speak to a triage nurse. Alexia Gerard LPN Overdue for labs, no additional refills. The following approved medication requests have been transmitted electronically. Signed Prescriptions Disp Refills montelukast (SINGULAIR) 10 mg tablet 90 tablet 0 Sig: Take 1 tablet by mouth daily at bedtime. LINA: No Authorizing Provider: YURY ALLRED Ordering User: LIZ DE LA ROSA atorvastatin (LIPITOR) 40 mg tablet 90 tablet 0 Sig: Take 1 tablet by mouth once daily. LINA: No Authorizing Provider: YURY ALLRED Ordering User: LIZ DE LA ROSA lisinopril-hydroCHLOROthiazide (PRINZIDE,ZESTORETIC) 20-12.5 mg per tablet 90 tablet 0 Sig: Take 1 tablet by mouth once daily. LINA: No Authorizing Provider: YURY ALLRED Ordering User: LIZ DE LA ROSA APRN.CNP [place] 12/03/2021 NOV not scheduled at this time Stefania Edwards Ma Patient has been identified by name and date of : Yes Pending Prescriptions Disp Refills MONTELUKAST 10 MG TABLET 90 tablet 1 Sig: Take 1 tablet by mouth daily at bedtime. LINA: No ATORVASTATIN 40 MG TABLET 90 tablet 1 Sig: Take 1 tablet by mouth once daily. LINA: No LISINOPRIL 20 MG-HYDROCHLOROTHIAZIDE 12.5 MG TABLET 90 tablet 1 Sig: Take 1 tablet by mouth once daily. LINA: No RX INSTRUCTIONS: Patient is leaving for out of town for approximately 3 months and needs his medications with him. Please send to pharmacy Patient aware RX will be sent to pharmacy. No need to notify patient. Beverly Roca Pss documented in this encounter [facility] 03-16-2022 Miscellaneous Notes Patient has been identified by name and date of : Yes Patient phones for refill(s): No medications selected for refill. Date of last office visit in primary care: 11-07-2021 Last 2 Encounter Wt Readings: Date: Wt: 12/03/2021 100.2 kg (221 lb) 08/25/2020 103 kg (227 lb) Previous labs/tests for medication: Not applicable Please advise. Thank you. Josi Ornelas Pss documented in this encounter [facility] 01-26-2022 Miscellaneous Notes Patient has been identified by name and date of : Yes Patient phones for refill(s): Pending Prescriptions Disp Refills FLUTICASONE 250 MCG-SALMETEROL 50 MCG/DOSE BLISTR POWDR FOR INHALATION 1 Each 3 Sig: Inhale 1 Puff as instructed twice daily. Rinse and gargle mouth after use with water. LINA: No Date of last office visit with pcp: 12/03/21 Date of last office visit in primary care: Last 2 Encounter Wt Readings: Date: Wt: 12/03/2021 100.2 kg (221 lb) 08/25/2020 103 kg (227 lb) Previous labs/tests for medication: Not applicable Please advise. Thank you. Isamar Prado RN documented in this encounter [facility] 01-15-2022 Miscellaneous Notes Script sent. Alissa Crouch APRN.ASHUTOSH Pt calls to request rx for montelukast 10 mg. Med chart shows pt should have refills on current rx but pt reports [facility] tells him he does not. Last OV: 12/03/21 Patient has been identified by name and date of : Yes Pending Prescriptions Disp Refills MONTELUKAST 10 MG TABLET 90 tablet 3 Sig: Take 1 tablet by mouth daily at bedtime. LINA: No RX INSTRUCTIONS: Patient aware RX will be sent to pharmacy. No need to notify patient. Lo Espino LPN documented in this encounter [facility] documented as of this encounter (statuses as of 09/25/2023) [facility]11-02-2015 History of Past illness Narrative* Problem Noted Date Diagnosed Date Resolved Date Mild tobacco abuse 08/07/2015 3 documented as of this encounter (statuses as of 11/12/2023) [facility]2015 History of Past illness Narrative* Problem Noted Date Diagnosed Date Resolved Date Mild tobacco abuse 08/07/2015 3 documented as of this encounter (statuses as of 11/18/2023) [facility]2015 History of Past illness Narrative* Problem Noted Date Diagnosed Date Resolved Date Mild tobacco abuse 08/07/2015 3 documented as of this encounter (statuses as of 11/18/2023) [facility] Diagnosis Seasonal allergies Allergic rhinitis, cause unspecified [facility] Diagnosis Bronchitis Bronchitis, not specified as acute or chronic Wheezing [facility] Diagnosis Bronchitis Bronchitis, not specified as acute or chronic Wheezing [facility] Diagnosis Special screening examination for viral disease- Primary Special screening examination for unspecified viral disease Seasonal allergies Allergic rhinitis, cause unspecified Hyperlipidemia, mixed Mixed hyperlipidemia Hypertension, essential Unspecified essential hypertension Screening for HIV (human immunodeficiency virus) Special screening examination for other specified viral diseases [facility] Diagnosis Hypertension, essential Unspecified essential hypertension [facility]* Diagnosis Seasonal allergies Allergic rhinitis, cause unspecified [facility]* Diagnosis Acute right-sided low back pain without sciatica- Primary Hip pain Pain in joint, pelvic region and thigh Pain in joint, multiple sites Hypertension, essential Unspecified essential hypertension Trigger middle finger of left hand Trigger finger (acquired) Hyperlipidemia, mixed Mixed hyperlipidemia Benign prostatic hyperplasia with urinary frequency History of elevated glucose Personal history of other endocrine, metabolic, and immunity disorders Seasonal allergies Allergic rhinitis, cause unspecified Screening for colon cancer Special screening for malignant neoplasms, colon Special screening for malignant neoplasms, colon [facility]* Diagnosis Hypertension, essential Unspecified essential hypertension Seasonal allergies Allergic rhinitis, cause unspecified Acute right-sided low back pain without sciatica Hip pain Pain in joint, pelvic region and thigh Pain in joint, multiple sites [facility]* Diagnosis Bronchitis Bronchitis, not specified as acute or chronic Wheezing [facility] Diagnosis Hyperlipidemia, mixed Mixed hyperlipidemia [facility] Diagnosis Seasonal allergies Allergic rhinitis, cause unspecified [facility] Diagnosis Sinobronchitis- Primary Unspecified sinusitis (chronic) COPD with exacerbation (HCC) Obstructive chronic bronchitis with exacerbation [facility]* Diagnosis Bronchitis Bronchitis, not specified as acute or chronic Wheezing [facility] Diagnosis Neuropathy Mononeuritis of unspecified site [facility] Diagnosis Pain in right foot Pain in limb [facility] Diagnosis Ankle injury, sequela [facility] Diagnosis Encounter for screening for malignant neoplasm of colon- Primary Special screening for malignant neoplasms, colon Screening for colon cancer Special screening for malignant neoplasms, colon Special screening for malignant neoplasms, colon [facility] Diagnosis Benign prostatic hyperplasia with urinary frequency [facility]* Diagnosis SOB (shortness of breath)- Primary Shortness of breath [facility] Diagnosis COPD with exacerbation (HCC)- Primary Obstructive chronic bronchitis with exacerbation Wheezing Hypoxia Hypoxemia [facility] Diagnosis Wheezing COPD with exacerbation (HCC) Obstructive chronic bronchitis with exacerbation Hypoxia Hypoxemia [facility] Diagnosis Mild persistent asthma without complication- Primary Unspecified asthma Former light tobacco smoker Personal history of tobacco use, presenting hazards to health documented in this encounter [facility] for referral (narrative)* Outpatient Procedure (Routine) - Authorized Specialty Diagnoses / Procedures Referred By Kirsten t Referred To Contact [facility] Diagnoses Screening for colon cancer Special screening for malignant neoplasms, colon Procedures COLONOSCOPY SCREENING COLONOSCOPY FLX DX W/COLLJ SPEC WHEN PFRMD Liz De La Rosa APRN.ANIME ARTIST [address] [place] [address] [facility] [place] [address] [place] [address] Referral ID Status Reason Start Date Expiration Date Visits Requested Visits Authorized [id number] Authorized Auto-Generat ed Referral 07/08/2022 07/08/2023 1 1 * Consult, Test, Treat (Routine) - Authorized Specialty Diagnoses / Procedures Referred By Kirsten astorga Referred To Contact Orthopedics Diagnoses Trigger middle finger of left hand Procedures CONSULT TO ORTHOPAEDICS OFFICE/OUTPATIENT NEW HIGH MDM 60-74 MINUTES Liz De La Rosa APRN.ANIME ARTIST [address] [place] [address] Referral ID Status Reason Start Date Expiration Date Visits Requested Visits Authorized [id number] Authorized PCP Requested Referral 07/08/2022 07/08/2023 1 1 * Diagnostic Procedure Only (Routine) - Closed Specialty Diagnoses / Procedures Referred By Kirsten t Referred To Contact XR IMAGING Diagnoses Acute right-sided low back pain without sciatica Hip pain Procedures XR HIP GENERAL 3V PELV/AP/LAT RIGHT RADEX HIP UNILATERAL WITH PELVIS 2-3 VIEWS Liz De La Rosa APRN.ANIME ARTIST [address] [place] [address] X[facility] Referral ID Status Reason Start Date Expiration Date V isits Requested Visits Authorized [id number] Closed Auto-Generate d Referral 07/08/2022 08/07/2023 1 1 * Diagnostic Procedure Only (Routine) - Closed Specialty Diagnoses / Procedures Referred By Contac t Referred To Contact XR IMAGING Diagnoses Acute right-sided low back pain without sciatica Hip pain Procedures XR LUMBAR GENERAL 3V AP/LAT/L5-S1 RADEX SPINE LUMBOSACRAL 2/3 VIEWS Liz De La Rosa APRN.ANIME ARTIST [address] [place] [address] X[facility] Imaging Referral ID Status Reason Start Date Expiration Date V isits Requested Visits Authorized [id number] Closed Auto-Generate d Referral 07/08/2022 08/07/2023 1 1 [facility] for referral (narrative)* Diagnostic Procedure Only (Routine) - Closed Specialty Diagnoses / Procedures Referred By Contac t Referred To Contact XR IMAGING Diagnoses Pain in right foot Procedures XR FOOT GENERAL 3V AP/LAT/OBL RIGHT RADEX FOOT COMPLETE MINIMUM 3 [address] [place] [address] [place] [address] Referral ID Status Reason Start Date Expiration Date V isits Requested Visits Authorized [id number] Closed Auto-Generate d Referral 07/07/2023 08/05/2024 1 1 [facility] for referral (narrative)* Diagnostic Procedure Only (Routine) - Closed Specialty Diagnoses / Procedures Referred By Contac t Referred To Contact XR IMAGING Diagnoses Ankle injury, sequela Procedures XR ANKLE GENERAL 3V AP/LAT/OBL RIGHT RADEX ANKLE COMPLETE MINIMUM 3 VIEWS [address] [place] [address] [place] [address] Referral ID Status Reason Start Date Expiration Date V isits Requested Visits Authorized [id number] Closed Auto-Generate d Referral 07/07/2023 08/05/2024 1 1 [facility] for referral (narrative)* Outpatient Procedure (Routine) - Closed Specialty Diagnoses / Procedures Referred By Contac t Referred To Contact [facility] Diagnoses Screening for colon cancer Special screening for malignant neoplasms, colon Procedures COLONOSCOPY SCREENING COLONOSCOPY FLX DX W/COLLJ SPEC WHEN Liz Arias APRN.ANIME ARTIST [address] [place] [address] [facility] [place] [address] [place] [id number] Referral ID Status Reason Start Date Expiration Date V isits Requested Visits Authorized [id number] Closed Auto-Generate d Referral 07/08/2022 07/08/2023 1 1 [facility] for referral (narrative)* Diagnostic Procedure Only (Urgent) - Waiting for Response Specialty Diagnoses / Procedures Referred By Contac t Referred To Contact CT IMAGING Diagnoses Wheezing COPD with exacerbation (HCC) Hypoxia Procedures CT CHEST WO IVCON DIAGNOSTIC COMPUTED TOMOGRAPHY THORAX W/O CNTRST Melania Owen APRN.ANIME ARTIST [address] [place] [address] Ct [facility] Referral ID Status Reason Start Date Expiration Date Visits Requested Visits Authorized [id number] Waiting for Response Auto-Genera benji Referral Patient Cleared - Admin/Chair man/Directo r advise to proceed or did not respond 09/10/2023 10/09/2024 1 1 [facility] for referral (narrative)* Diagnostic Procedure Only (Urgent) - Waiting for Response Specialty Diagnoses / Procedures Referred By Contac t Referred To Contact CT IMAGING Diagnoses Wheezing COPD with exacerbation (HCC) Hypoxia Procedures CT CHEST WO IVCON DIAGNOSTIC COMPUTED TOMOGRAPHY THORAX W/O CNTRST Melania Owen APRN.CNP [address] [place] [address] Ct [facility] Referral ID Status Reason Start Date Expiration Date Visits Requested Visits Authorized [id number] Waiting for Response Auto-Genera benji Referral Patient Cleared - Admin/Chair man/Directo r advise to proceed or did not respond 09/10/2023 10/09/2024 1 1 [facility] for visit Narrative* Outpatient Procedure (Routine) - Closed Specialty Diagnoses / Procedures Referred By Contac t Referred [facility] Diagnoses Neuropathy Procedures EMG(NEURO/NI) NERVE CONDUCTION STUDIES 9-10 STUDIES Nils Sal [address] [place] [address] [facility] [place] [address] [place] [address] Referral ID Status Reason Start Date Expiration Date V isits Requested Visits Authorized [id number] Closed Auto-Generate d Referral 07/07/2023 07/07/2024 1 1 [facility] for visit Narrative* Diagnostic Procedure Only (Routine) - Closed Specialty Diagnoses / Procedures Referred By Contac t Referred To Contact XR IMAGING Diagnoses Pain in right foot Procedures XR FOOT GENERAL 3V AP/LAT/OBL RIGHT RADEX FOOT COMPLETE MINIMUM 3 VIEWS [address] [place] [address] Xr Imaging [facility] Referral ID Status Reason Start Date Expiration Date V isits Requested Visits Authorized [id number] Closed Auto-Generate d Referral 07/07/2023 08/05/2024 1 1 [facility] for visit Narrative* Diagnostic Procedure Only (Routine) - Closed Specialty Diagnoses / Procedures Referred By Contac t Referred To Contact XR IMAGING Diagnoses Ankle injury, sequela Procedures XR ANKLE GENERAL 3V AP/LAT/OBL RIGHT RADEX ANKLE COMPLETE MINIMUM 3 VIEWS Nils Sal [address] [place] [address] [place] [address] Referral ID Status Reason Start Date Expiration Date V isits Requested Visits Authorized [id number] Closed Auto-Generate d Referral 07/07/2023 08/05/2024 1 1 [facility] Outpatient Procedure (Routine) - Closed Specialty Diagnoses / Procedures Referred By Contac t Referred To Contact [facility] Diagnoses Screening for colon cancer Special screening for malignant neoplasms, colon Procedures COLONOSCOPY SCREENING COLONOSCOPY FLX DX W/COLLJ SPEC WHEN PFRMD EstrellaLiz, BASIA.ANIME ARTIST [address] [place] [address] [facility] [place] [address] [place] [address] Referral ID Status Reason Start Date Expiration Date V isits Requested Visits Authorized [id number] Closed Auto-Generate d Referral 07/08/2022 07/08/2023 1 1 [facility] Medications Administered Section Inactive Administered Medications - up to 3 most recent administrations Medication Order MAR Action Action Date Dose Rate Site diphenhydrAMINE 12.5-50 mg injection (BENADRYL) 12.5-50 mg, INTRAVENOUS, DIRECTED, Starting on Mitzy 08/01/22 at 1300, Until Mitzy 08/01/22 at 1659, DOSING DIRECTED BY PHYSICIAN FOR PROCEDURAL SEDATION ONLY, Intraprocedure Given 08/01/2022 12:48 PM EDT 50 mg fentaNYL 50 mcg/mL 25-100 mcg injection (SUBLIMAZE) 25-100 mcg, INTRAVENOUS, DIRECTED, Starting on Mitzy 08/01/22 at 1300, Until Mitzy 08/01/22 at 1659, DOSING DIRECTED BY PHYSICIAN FOR PROCEDURAL SEDATION ONLY, Intraprocedure Given 08/01/2022 12:53 PM EDT 50 mcg Summary Purpose Family History No Family History Records Found Advance Directives No Advanced Directives Records Found Additional Source Comments Source Comments (unrecognize d section and content) In the event this informatio n is protected by the Federal Confidentiality of Alcohol and Drug Abuse Patient Records regulations: The Federal rules restrict any use of the information to criminally investigate or prosecute any alcohol or drug abuse patient.[facility] the event this information is protected by the Federal Confidentiality of Alcohol and Drug Abuse Patient Records regulations: The Federal rules restrict any use of the information to criminally investigate or prosecute any alcohol or drug abuse patient.[facility] the event this information is protected by the Federal Confidentiality of Alcohol and Drug Abuse Patient Records regulations: The Federal rules restrict any use of the information to criminally investigate or prosecute any alcohol or drug abuse patient.[facility] the event this information is protected by the Federal Confidentiality of Alcohol and Drug Abuse Patient Records regulations: The Federal rules restrict any use of the information to criminally investigate or prosecute any alcohol or drug abuse patient.[facility] the event this information is protected by the Federal Confidentiality of Alcohol and Drug Abuse Patient Records regulations: The Federal rules restrict any use of the information to criminally investigate or prosecute any alcohol or drug abuse patient.[facility] the event this information is protected by the Federal Confidentiality of Alcohol and Drug Abuse Patient Records regulations: The Federal rules restrict any use of the information to criminally investigate or prosecute any alcohol or drug abuse patient.[facility] the event this information is protected by the Federal Confidentiality of Alcohol and Drug Abuse Patient Records regulations: The Federal rules restrict any use of the information to criminally investigate or prosecute any alcohol or drug abuse patient.[facility] the event this information is protected by the Federal Confidentiality of Alcohol and Drug Abuse Patient Records regulations: The Federal rules restrict any use of the information to criminally investigate or prosecute any alcohol or drug abuse patient.[facility] the event this information is protected by the Federal Confidentiality of Alcohol and Drug Abuse Patient Records regulations: The Federal rules restrict any use of the information to criminally investigate or prosecute any alcohol or drug abuse patient.[facility] the event this information is protected by the Federal Confidentiality of Alcohol and Drug Abuse Patient Records regulations: The Federal rules restrict any use of the information to criminally investigate or prosecute any alcohol or drug abuse patient.[facility] the event this information is protected by the Federal Confidentiality of Alcohol and Drug Abuse Patient Records regulations: The Federal rules restrict any use of the information to criminally investigate or prosecute any alcohol or drug abuse patient.[facility] the event this information is protected by the Federal Confidentiality of Alcohol and Drug Abuse Patient Records regulations: The Federal rules restrict any use of the information to criminally investigate or prosecute any alcohol or drug abuse patient.[facility] the event this information is protected by the Federal Confidentiality of Alcohol and Drug Abuse Patient Records regulations: The Federal rules restrict any use of the information to criminally investigate or prosecute any alcohol or drug abuse patient.[facility] the event this information is protected by the Federal Confidentiality of Alcohol and Drug Abuse Patient Records regulations: The Federal rules restrict any use of the information to criminally investigate or prosecute any alcohol or drug abuse patient.[facility] the event this information is protected by the Federal Confidentiality of Alcohol and Drug Abuse Patient Records regulations: The Federal rules restrict any use of the information to criminally investigate or prosecute any alcohol or drug abuse patient.[facility] the event this information is protected by the Federal Confidentiality of Alcohol and Drug Abuse Patient Records regulations: The Federal rules restrict any use of the information to criminally investigate or prosecute any alcohol or drug abuse patient.[facility] the event this information is protected by the Federal Confidentiality of Alcohol and Drug Abuse Patient Records regulations: The Federal rules restrict any use of the information to criminally investigate or prosecute any alcohol or drug abuse patient.[facility] the event this information is protected by the Federal Confidentiality of Alcohol and Drug Abuse Patient Records regulations: The Federal rules restrict any use of the information to criminally investigate or prosecute any alcohol or drug abuse patient.[facility] the event this information is protected by the Federal Confidentiality of Alcohol and Drug Abuse Patient Records regulations: The Federal rules restrict any use of the information to criminally investigate or prosecute any alcohol or drug abuse patient.[facility] the event this information is protected by the Federal Confidentiality of Alcohol and Drug Abuse Patient Records regulations: The Federal rules restrict any use of the information to criminally investigate or prosecute any alcohol or drug abuse patient.[facility] the event this information is protected by the Federal Confidentiality of Alcohol and Drug Abuse Patient Records regulations: The Federal rules restrict any use of the information to criminally investigate or prosecute any alcohol or drug abuse patient.[facility] the event this information is protected by the Federal Confidentiality of Alcohol and Drug Abuse Patient Records regulations: The Federal rules restrict any use of the information to criminally investigate or prosecute any alcohol or drug abuse patient.[facility] the event this information is protected by the Federal Confidentiality of Alcohol and Drug Abuse Patient Records regulations: The Federal rules restrict any use of the information to criminally investigate or prosecute any alcohol or drug abuse patient.[facility] the event this information is protected by the Federal Confidentiality of Alcohol and Drug Abuse Patient Records regulations: The Federal rules restrict any use of the information to criminally investigate or prosecute any alcohol or drug abuse patient.[facility] the event this information is protected by the Federal Confidentiality of Alcohol and Drug Abuse Patient Records regulations: The Federal rules restrict any use of the information to criminally investigate or prosecute any alcohol or drug abuse patient.[facility] MemorialIn the event this information is protected by the Federal Confidentiality of Alcohol and Drug Abuse Patient Records regulations: The Federal rules restrict any use of the information to criminally investigate or prosecute any alcohol or drug abuse patient.[facility] MemorialIn the event this information is protected by the Federal Confidentiality of Alcohol and Drug Abuse Patient Records regulations: The Federal rules restrict any use of the information to criminally investigate or prosecute any alcohol or drug abuse patient.[facility] MemorialIn the event this information is protected by the Federal Confidentiality of Alcohol and Drug Abuse Patient Records regulations: The Federal rules restrict any use of the information to criminally investigate or prosecute any alcohol or drug abuse patient.[facility] MemorialIn the event this information is protected by the Federal Confidentiality of Alcohol and Drug Abuse Patient Records regulations: The Federal rules restrict any use of the information to criminally investigate or prosecute any alcohol or drug abuse patient.[facility] MemorialIn the event this information is protected by the Federal Confidentiality of Alcohol and Drug Abuse Patient Records regulations: The Federal rules restrict any use of the information to criminally investigate or prosecute any alcohol or drug abuse patient.[facility] MemorialIn the event this information is protected by the Federal Confidentiality of Alcohol and Drug Abuse Patient Records regulations: The Federal rules restrict any use of the information to criminally investigate or prosecute any alcohol or drug abuse patient.[facility] MemorialIn the event this information is protected by the Federal Confidentiality of Alcohol and Drug Abuse Patient Records regulations: The Federal rules restrict any use of the information to criminally investigate or prosecute any alcohol or drug abuse patient.[facility] Reason for Visit (unrecogniz ed section and content) Reason Onset Date Comments Refill Request 01/26/2022 Reason Onset Date Comments Refill Request 03/16/2022 Reason Onset Date Comments Refill Request 03/15/2022 Reason Onset Date Comments Refill Request 04/22/2022 Reason Comments Refill Request Reason Comments Referral Request Reason Comments Yearly Exam Back Pain Right side x 2/3 wee ks Reason Comments Results Reason Onset Date Comments Refill Request 08/01/2022 Reason Comments Referral Information Opened In Error Reason Comments 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 Reason Comments Radiology CT Specialty Diagnoses / Procedures Referred By Contac t Referred To Contact CT IMAGING Diagnoses Wheezing COPD with exacerbation (HCC) Hypoxia Procedures CT CHEST WO IVCON DIAGNOSTIC COMPUTED TOMOGRAPHY THORAX W/O CNTRST Melania Owen, BASIA.ANIME ARTIST [address] [place] [address] [place] [address] Referral ID Status Reason Start Date Expiration Date Visits Requested Visits Authorized [id number] Waiting for Response Auto-Genera benji Referral Patient Cleared - Admin/Chair man/Directo r advise to proceed or did not respond 09/10/2023 10/09/2024 1 1 Reason Comments Asthma Care Teams (unrecognized sec tion and content) Division Officer Weapons Department Relationship Specialty Start Date End Date Yury Allred DO [address] [place] [address] PCP - General Family Practice 07/26/14 Division Officer Weapons Department Relationship Specialty Start Date End Date Yury Allred, DO [address] [place] [address] PCP - General Family Practice 07/26/14 Division Officer Weapons Department Relationship Specialty Start Date End Date Yury Allred, DO [address] [place] [address] PCP - General Family Practice 07/26/14 Division Officer Weapons Department Relationship Specialty Start Date End Date Yury Allred, DO [address] [place] [address] PCP - General Family Practice 07/26/14 Division Officer Weapons Department Relationship Specialty Start Date End Date Yury Allred, DO [address] [place] [address] PCP - General Family Medicine 07/26/14 Division Officer Weapons Department Relationship Specialty Start Date End Date Yury Allred, DO [address] [place] [address] PCP - General Family Medicine 07/26/14 Division Officer Weapons Department Relationship Specialty Start Date End Date Yury Allred, DO [address] [place] [address] PCP - General Family Medicine 07/26/14 Division Officer Weapons Department Relationship Specialty Start Date End Date Yury Allred, DO [address] [place] [address] PCP - General Family Medicine 07/26/14 Division Officer Weapons Department Relationship Specialty Start Date End Date Yury Allred, DO [address] [place] [address] PCP - General Family Medicine 07/26/14 Division Officer Weapons Department Relationship Specialty Start Date End Date Yury Allred, DO [address] [place] [address] PCP - General Family Medicine 07/26/14 Division Officer Weapons Department Relationship Specialty Start Date End Date Yury Allred DO [address] [facility] [place] [address] PCP - General Family Medicine 07/26/14 Division Officer Weapons Department Relationship Specialty Start Date End Date Yury Allred DO [address] [facility] [place] [address] PCP - General Family Medicine 07/26/14 Division Officer Weapons Department Relationship Specialty Start Date End Date Yury Allrde DO [address] [place] [address] PCP - General Family Medicine 07/26/14 Division Officer Weapons Department Relationship Specialty Start Date End Date Yury Allred DO [address] [place] [address] PCP - General Family Medicine 07/26/14 Division Officer Weapons Department Relationship Specialty Start Date End Date Yury Allred DO [address] [facility] [place] [address] PCP - General Family Medicine 07/26/14 Division Officer Weapons Department Relationship Specialty Start Date End Date Yury Allred DO [address] [facility] [place] [address] PCP - General Family Medicine 07/26/14 Division Officer Weapons Department Relationship Specialty Start Date End Date Yury Allred DO [address] [facility] [place] [address] PCP - General Family Medicine 07/26/14 Division Officer Weapons Department Relationship Specialty Start Date End Date Yury Allred DO [address] [facility] [address] PCP - General Family Medicine 07/26/14 Division Officer Weapons Department Relationship Specialty Start Date End Date Yury Allred, [address] [facility] [address] PCP - General Family Medicine 07/26/14 Division Officer Weapons Department Relationship Specialty Start Date End Date Yury Allred, [address] [place] [address] PCP - General Family Medicine 07/26/14 Division Officer Weapons Department Relationship Specialty Start Date End Date Yury Allred, [address] [facility] [place] [address] PCP - General Family Medicine 07/26/14 Division Officer Weapons Department Relationship Specialty Start Date End Date Yury Allred, [address] [facility] [place] [address] PCP - General Family Medicine 07/26/14 Division Officer Weapons Department Relationship Specialty Start Date End Date Yury Allred, DO [address] [facility] [place] [address] PCP - General Family Medicine 07/26/14 Division Officer Weapons Department Relationship Specialty Start Date End Date Yury Allred, [address] [facility] [place] [address] PCP - General Family Medicine 07/26/14 Division Officer Weapons Department Relationship Specialty Start Date End Date Yury Allred, [address] [facility] [place] [address] PCP - General Family Medicine 07/26/14 (unrecognized sect ion and content) No Status Records Found INFORMATION SOURCE (unrecogn ized section and content) FOR RECORDS PERTAINING TO PATIENTS WHO ARE OR HAVE BEEN ENROLLED IN A CHEMICAL DEPENDENCY/SUBSTANCEABUSE PROGRAM, SOME INFORMATION MAY BE OMITTED. This clinical summary was aggregated from multiple sources. Caution should be exercised in using it in the provision of clinical care. This summary normalizes information from multiple sources, and as a consequence, information in this document may materially change the coding, format and clinical context of patient data. In addition, data may be omitted in some cases. CLINICAL DECISIONS SHOULD BE BASED ON THE PRIMARY CLINICAL RECORDS. [employer] [facility]. provides no warranty or guarantee of the accuracy or completeness of information in this document.
[2023-11-20] MEDS: Lactated Ringers 1,000 ML 999 ML IV ×2 (08:50→11:00)
[2023-11-20] MEDS: Lactated Ringers 1,000 ML 75 ML IV (08:50)
[2023-11-20] MEDS: Magnesium 1 GM over 15 mins IV (08:50)
[2023-11-20] MEDS: Acetaminophen 500 MG Tablet 1000 MG PO (08:51)
[2023-11-20] MEDS: Celecoxib 200 MG Capsule 400 MG PO (08:51)
[2023-11-20] MEDS: Gabapentin 600 MG Tablet PO (08:51)
[2023-11-20] MEDS: Cefazolin 2 GM in 0.9% Normal Saline (100mL Bag) 100 ML IV (09:29)
[2023-11-20 09:30] LABS: Bedside Glucose 112 mg/dL (74-106)
[2023-11-20] MEDS: TXA 1000mg in NS100 100ml (IVPB at Incision) 660 MG IV (09:45)
[2023-11-20] MEDS: Lactated Ringers 1,000 ML 125 ML IV (10:45)
--- NOTE | 2023-11-20 10:45 | SHO_PTH ---
PATHOLOGY RESULTS PATIENT: GUSTAVO HILLMAN LOC: [facility] [place] U#:[id number] AGE/SX: 63/M ROOM: RE11/20/[address]: Dr. Mando Palacios DO : 1960 BED: DIS: 11/20/2023 SPEC #: [id number] RECD: 11/20/23 13:21 STATUS: ELIZABETH REDandy #: [id number] MICHAEL: 11/20/23 10:[address]: Mando Palacios DEPT: SURGICAL PATHOLOGY RECD BY: Arlene Domínguez ENTERED: 11/20/23 13:44 SP TYPE: HUMERUS OTHR DR: Dr. Yury Lowe DO Tissues: Humerus, NOS Procedures: Decalcification bone/plaque Surgery Specimen Level IV HEADER OPERATION: Total shoulder replacement, reverse PRE-OP DIAGNOSIS: Right shoulder rotator cuff tear, arthritis TISSUE SUBMITTED: Right shoulder bone and tissue MICROSCOPIC DIAGNOSIS Bone and tissue of right shoulder, total shoulder replacement: Degenerative joint disease. Mild synovial hyperplasia. Focal polarizable crystals consistent with pseudogout. AM:smooth 11/24/2023 MICROSCOPIC DESCRIPTION Slides are reviewed. GROSS DESCRIPTION Received is one container labeled with the patient's name and designated bone and soft tissue. The specimen consists of a humeral head measuring 5 x 6 x 3 cm. The articular surface shows areas of erosion, and osteophyte formation. Also present is a piece of fibrocartilage tissue measuring 4.5 x 1 x 0.5 cm. Whiskey Proof Reader sections are submitted in two cassettes as follows: 1 - soft tissue, 2 - humeral head after decalcification. /bl 11/20/2023 TC:5 CPT: 56263, 99882
--- NOTE | 2023-11-20 12:15 | OP.PCM_ITS ---
Report of Operation Description of Surgical Findings:: Preoperative diagnosis: Right shoulder rotator cuff arthropathy Postoperative diagnosis: Right shoulder rotator cuff arthropathy Procedure: Right Reverse total shoulder arthroplasty Surgeon: Mando Palacios DO Machine Operator General: Samira Guthrie PA-C Anesthesia: General endotracheal Tile Erector: Clay Murphy CRNA Complications: None apparent Drains: None Estimated blood loss: 50 cc Urinary output: None IV fluids: 1200 cc crystalloid Specimens: None Surgical implants: Tornier Aequalis PerFORM+ reversed baseplate 29 mm diameter +6 mm lateralization, standard glenosphere cobalt chrome 42 mm diameter, Tornier perform inlay stem size #4, + 0 mm retentive size number 4 42 mm diameter polyethylene insert, short central post and peripheral screws x4. 63 Surgical indications: This is a 63-year-old male with persistent right shoulder pain over the last 7 years. He was seen years ago and diagnosed with a small rotator cuff tear. Decision was made to treat this nonoperatively. He did have worsening symptoms over the last several months. X-rays revealed rotator cuff arthropathy. I recommended a reverse shoulder arthroplasty. We obtained a preoperative CT scan for planning. The risks, benefits, alternatives the procedure was reviewed with the patient and he agreed to proceed. Risks included but were not limited to bleeding, infection, instability, loss of life or limb, risk of anesthesia, neurovascular injury, persistent pain, stiffness, prolonged immobilization, need for additional surgery, loosening of orthopedic hardware. He expressed understanding and wished to proceed with surgery. Surgical details: Patient arrived to [facility] morning of the procedure and was greeted by the same day surgery staff. Prior to his procedure, I greeted the patient in the preoperative holding area I identified the patient by name, connor rd number, and date of . Informed consent was confirmed. The operative extremity was marked. All questions were answered to patient satisfaction. An interscalene block was administered prior to procedure by anesthesia staff for postoperative and intraoperative analgesia. At time of his procedure, patient was brought to the operative suite and positioned supine on a standard table with a beachchair attachment. General anesthesia was induced after all bony prominences were well-padded. Endotracheal tube was placed. After adequate anesthesia and securing the tube, we prepared the patient to be positioned in the beachchair position. A well- padded head knitting machine fixer was applied. The nonoperative extremity was placed in a well arm palacios. He was then brought into the beachchair position after we confirmed an appropriate blood pressure. We then spun the bed 45 degrees. The operative extremity was then prepared. In the butterfly wing of the bed was removed and a well-padded torso strap was applied to secure the patient to the bed. The operative extremity was now free. We then prepped and draped the right upper extremity in normal, sterile orthopedic fashion. We then performed a timeout with all parties in attendance in agreement with the side, site, and operation be performed. 2 g Ancef was administered prior to incision by anesthesia staff, as well as 1 g TXA IV. No concerns were voiced and we elected to proceed. I first marked a standard deltopectoral incision just lateral to the coracoid process in line with the long axis of the humerus. Skin was sharply incised with 10 blade scalpel. I then dissected bluntly through the subcutaneous layers and found the fat stripe between the deltoid and pectoralis major. The cephalic vein was then identified and protected. It was retracted laterally with the deltoid. I then bluntly dissected underneath the deltoid with a Odonnell elevator. Thor retractor was placed. The upper 1 cm of the pectoralis major was rel eased. I then identified the long head of the biceps tendon in the intertubercular groove. This was tenodesed in situ with #2 FiberWire. I then amputated the biceps proximal to the tenodesis site and followed the tendon to the supraglenoid tubercle where it was amputated. This identified the lesser and greater tuberosities. The supraspinatus was completely torn and retracted with an exposed greater tuberosity. The subscapularis was also completely torn and retracted. Capsule was then released from the lesser tuberosity. External rotation allow for complete release to the mid humeral neck. Humeral head was then dislocated anteriorly. Appropriate access to the humeral head was confirmed. I then subluxed the humeral head posteriorly with a Fukuda retractor placed around the posterior lip of the glenoid. Inferior capsule was tensioned. I was able to palpate the axillary nerve. Inferior capsule was then released to the 4 o'clock position of the glenoid face. I then removed the Fukuda retractor and redislocated the shoulder anteriorly. I then made an anatomic neck cut of the cartilaginous surface of the humeral head. Sizing plate for a size # 4 stem was utilized to determine appropriate reaming size. A central pin was placed engaging the lateral cortex of the humerus. A size # 4 reamer was used to ream the humeral metaphysis and prepare for the inlay stem. A canal finding reamer was utilized prior to sequential broaching to a size # 4 short stem with excellent rotational and axial purchase in the humerus. I remove the broach handle left the size #[address] I then subluxed the humerus posterior to the glenoid. I then placed retractors around the posterior and anterior glenoid to expose the glenoid. Glenoid labrum was removed with Bovie cautery protecting the axillary nerve. We then used the custom guide from [employer] to position our centering pin, exiting approximately 25 mm from the joint surface along the anterior scapula. Guide was removed and pin was analyzed and compared to preoperative planning. It appeared to be in appropriate position. The Nautilus shaped reamer was then placed over top of the centering pin. I reamed a flat surface of the glenoid. We then removed the reamer and used the cannulated drill for the short central post. Post and baseplate was assembled on the back table. We then inserted the baseplate and central post the assembled baseplate to an appropriate depth with good press-fit purchase. A [place] was used to confirm depth. Cortical screws then were placed in the peripheral holes with good pur ramy. The baseplate had excellent purchase and the entire scapula would rotate with rotation of the baseplate. We then impacted the 42 mm glenosphere with a standard eccentricity and tightened the locking screw mechanism. We then removed retractors and turned our attention back to the humerus. I placed a standard +0 millimeters retentive polyethylene insert. I then reduced the shoulder. There was excellent range of motion and stability in all planes of motion. We selected this as our final size. We removed trials from the humerus after final dislocation. I copiously irrigated the canal. Broach was placed on hand and then impacted to an appropriate depth. Final + 0 mm retentive polyethylene insert was placed. Final reduction was then performed. We then copiously irrigated the wound with sterile Betadine and normal saline solution. We reapproximated the interval with 0 Vicryl suture. Subcutaneous layers were reapproximated with 2 -0 Vicryl suture. Skin was finally running V- Loc 3-0 Monocryl suture and Dermabond. A sterile silver Mepilex dressing was applied. Patient was then placed in an ultra sling. Patient tolerated procedure well without complication. He was positioned back in the supine position extubated in the operative suite. He was transferred to the [facility] and subsequently to PACU in stable condition. Need for skilled corporate law assistant: Samira Guthrie PA-C was critical to the outcome of the case. During the course of the procedure the physician corporate law assistant played a vital role. Her intimate knowledge of my steps in the procedure aided in safe and expedient completion of the procedure. The PA played a vital role in positioning particularly in obtaining the appropriate positioning. The PA was also vital in the retraction of soft tissues during the exposure and protecting vital structures. The PA was also vital and protecting soft tissues during times of bony cuts. She also played a vital role in closure with my direct supervision. The PA was also important during reduction and dislocation of the joint and trials intraoperatively. Intraoperative medications: 2 g Ancef IV, 1 g TXA IV x2 Post Operative Plan: Plan for discharge home after meeting same-day criteria. Weightbearing: Nonweightbearing right upper extremity, okay for pendulums. Range of motion of wrist elbow and hand as tolerated. Antibiotics: 2 g Ancef IV prior to incision, 1 g IV Ancef prior to discharge DVT Prophylaxis: Aspirin enteric-coated 81 mg twice daily starting tomorrow Zamorano: None Dressing: Maintain silver dressing x7 days. Okay to shower dressing on started on day 4 X-Rays: 2 weeks postop in the office Pain Medication: Oxycodone Rx upon discharge Follow-up: 2 weeks post-operatively with me in the office
--- NOTE | 2023-11-20 12:25 | RAD_ITS ---
STUDY: X-RAY - RIGHT SHOULDER REASON FOR EXAM: Male, 63 years old. Post op -- AP and Lateral X-Ray of operative shoulder in PACU TECHNIQUE: 2 view(s) of the shoulder. COMPARISON: Comparison is made with prior study dated February 17, 2017. FINDINGS: The patient is status post right reverse shoulder replacement. There is good alignment. Mild right basilar atelectasis. RAD/Shoulder min 2 Views IMPRESSION: Status post right reverse shoulder replacement. There is good alignment. Electronically Signed: Quinton Jay MD at 12:41 EST ,
[2023-11-20] MEDS: Cephalexin 500 MG Capsule PO (14:30)
== END 2023-11-20 14:34 | disposition home or self-care (01) ==
LOC: SDC 08:06 → AC 08:06
PROVIDERS: PCP Student in an Organized Health Care Education/Training Program; Referring Provider Student in an Organized Health Care Education/Training Program; Visit Provider Student in an Organized Health Care Education/Training Program
PROC: (CPT 23472; principal; 2023-11-20 10:15)
DX: S46.011A Strain of muscle(s) and tendon(s) of the rotator cuff of right shoulder, initial encounter (principal); G47.30 Sleep apnea, unspecified; I10 Essential (primary) hypertension; E78.00 Pure hypercholesterolemia, unspecified; F17.210 Nicotine dependence, cigarettes, uncomplicated; M19.011 Primary osteoarthritis, right shoulder; X58.XXXA Exposure to other specified factors, initial encounter; Z79.899 Other long term (current) drug therapy; Z79.82 Long term (current) use of aspirin
CPT/HCPCS: 23472; 64415; 01638; 36415; 73030; 82040; 82962; 83735; 85025; 87077; 87081; 88305; 88311; C1776; J7120; J2405; J3475